=== PATIENT | male | born 1940 | race Caucasian/White ===

== ENCOUNTER → 2016-07-10 | Outpatient (REF) | payer MEDICARE, MEDICAID ==
[~2016-07-10] MED LIST: /PANT40TA; ACET500C PO; ACET500T37 PO; ACET65TA; ALBUTEROL INH; ASPI1TAB PO; ASPI81CH PO; ASPI81TA3; ATOR40TA PO; BABY81CH OR; BACT800T OR; CARA1TAB2 PO; CIPR500T19; COUM6TAB PO; COUMADIN PO; CRES40TA; EYE VITAMIN PO; FLAG500T; FLOM5CAP PO; FURO20TA2 PO; GABA300C3 PO; INSULADS SC; INSULANT SC; K-TA10TA PO; KRIL300C PO; LIPITO PO; LISI5TAB; LOPR50TA PO; LORA10TA2 PO; LORATADINE; MACR100C3 PO; METF1000 PO; METF500T PO; METFORMIN PO; METO25TAB PO; NITR0.4S SL; NITR4TASL SL; NYST100024 TOP; NYST10PW TOP; PANT40TA2 PO; PRED50TA OR; PRESCAP6 PO; RA K500C PO; TAMS0.4C2 PO; TEARSPF OU; THERGRAN PO; TRAM50TA2; VENL75CA PO; VENL75TA2 PO; VITA100037 PO; VITMTA PO; WARF-60 PO; WARF5VL PO; XARE20TA PO
[2016-07-10 10:50] LABS: INR 0.98
== END ==
PROVIDERS: ATTEND Nurse Practitioner Family
DX: Z51.81 Encounter for therapeutic drug level monitoring (principal); Z79.01 Long term (current) use of anticoagulants

== ENCOUNTER → 2016-07-17 | Outpatient (REF) | payer MEDICARE, MEDICAID ==
[2016-07-17 10:31] LABS: INR 1.02
== END ==
PROVIDERS: ATTEND Nurse Practitioner Family
DX: Z51.81 Encounter for therapeutic drug level monitoring (principal); Z79.01 Long term (current) use of anticoagulants; I48.91 Unspecified atrial fibrillation

== ENCOUNTER → 2016-08-08 | Outpatient (REF) | payer MEDICARE, MEDICAID ==
[2016-08-08 09:31] LABS: MEAN CORPUSCULAR HEMOGLOBIN 29.3 pg (27.0-33.0); MEAN CORPUSCULAR HGB CONC 32.6 g/dl (32.0-36.5); MEAN CORPUSCULAR VOLUME 90.1 fl (80.0-96.0); RED CELL DISTRIBUTION WIDTH 13.7 % (11.5-14.5); WHITE BLOOD COUNT 6.7 K/mm3 (4.0-10.0)
[2016-08-08 09:54] LABS: ALBUMIN 3.6 GM/DL (3.2-5.2); ALBUMIN/GLOBULIN RATIO 1.03 (1.00-1.93); ALKALINE PHOSPHATASE 95 U/L (45-117); ALT/SGPT 20 U/L (12-78); ANION GAP 8 MEQ/L (8-16); AST/SGOT 17 U/L (15-37); BILIRUBIN,TOTAL 0.3 MG/DL (0.2-1.0); BLOOD UREA NITROGEN 20 MG/DL (7-18); CALCIUM LEVEL 8.7 MG/DL (8.8-10.2); CARBON DIOXIDE LEVEL 29 MEQ/L (21-32); CHLORIDE LEVEL 104 MEQ/L (98-107); CHOLESTEROL LEVEL 185 MG/DL (<200); CREATININE FOR GFR 0.94 MG/DL (0.70-1.30); GLOMERULAR FILTRATION RATE > 60.0 (>42); GLUCOSE, FASTING 93 MG/DL (83-110); POTASSIUM SERUM 4.1 MEQ/L (3.5-5.1); SODIUM LEVEL 141 MEQ/L (136-145); TOTAL PROTEIN 7.1 GM/DL (6.4-8.2); TRIGLYCERIDES LEVEL 169 MG/DL (<150)
== END ==
PROVIDERS: ATTEND Internal Medicine Cardiovascular Disease
DX: I11.0 Hypertensive heart disease with heart failure (principal); R55 Syncope and collapse; I25.10 Atherosclerotic heart disease of native coronary artery without angina pectoris

== ENCOUNTER → 2016-09-04 | Outpatient (REF) | payer MEDICARE, MEDICAID | PROVIDERS: ATTEND Nurse Practitioner Adult Health | DX: I48.91 Unspecified atrial fibrillation (principal) ==

== ENCOUNTER → 2016-09-11 | Outpatient (REF) | payer MEDICARE, MEDICAID ==
[2016-09-11 11:16] LABS: INR 1.05
== END ==
PROVIDERS: ATTEND Nurse Practitioner Family
DX: Z51.81 Encounter for therapeutic drug level monitoring (principal); Z79.01 Long term (current) use of anticoagulants; I48.91 Unspecified atrial fibrillation

== ENCOUNTER → 2016-09-18 | Outpatient (REF) | payer MEDICARE, MEDICAID ==
[2016-09-18 11:25] LABS: INR 1.09
== END ==
PROVIDERS: ATTEND Nurse Practitioner Family
DX: Z51.81 Encounter for therapeutic drug level monitoring (principal); Z79.01 Long term (current) use of anticoagulants; I48.2 Chronic atrial fibrillation

== ENCOUNTER → 2016-09-25 | Outpatient (REF) | payer MEDICARE, MEDICAID ==
[2016-09-25 10:24] LABS: INR 1.12
== END ==
PROVIDERS: ATTEND Nurse Practitioner Family
DX: Z51.81 Encounter for therapeutic drug level monitoring (principal); Z79.01 Long term (current) use of anticoagulants; I48.2 Chronic atrial fibrillation

== ENCOUNTER → 2016-10-02 | Outpatient (REF) | payer MEDICARE, MEDICAID ==
[~2016-10-02] MED LIST changes: +GABA-282 PO; -GABA300C3 PO
[2016-10-02 10:02] LABS: INR 1.41
== END ==
PROVIDERS: ATTEND Nurse Practitioner Family
DX: Z51.81 Encounter for therapeutic drug level monitoring (principal); Z79.01 Long term (current) use of anticoagulants; I48.2 Chronic atrial fibrillation

== ENCOUNTER → 2016-10-09 | Outpatient (REF) | payer MEDICARE, MEDICAID ==
[2016-10-09 10:31] LABS: INR 1.66
== END ==
PROVIDERS: ATTEND Nurse Practitioner Family
DX: Z51.81 Encounter for therapeutic drug level monitoring (principal); Z79.01 Long term (current) use of anticoagulants; I48.2 Chronic atrial fibrillation

== ENCOUNTER → 2016-10-16 | Outpatient (REF) | payer MEDICARE, MEDICAID ==
[2016-10-16 11:33] LABS: INR 1.97
== END ==
PROVIDERS: ATTEND Nurse Practitioner Family
DX: Z51.81 Encounter for therapeutic drug level monitoring (principal); Z79.01 Long term (current) use of anticoagulants; I48.2 Chronic atrial fibrillation

== ENCOUNTER → 2016-10-30 | Outpatient (REF) | payer MEDICARE, MEDICAID ==
[2016-10-30 11:21] LABS: INR 1.86
== END ==
PROVIDERS: ATTEND Nurse Practitioner Family
DX: Z51.81 Encounter for therapeutic drug level monitoring (principal); Z79.01 Long term (current) use of anticoagulants; I48.2 Chronic atrial fibrillation

== ENCOUNTER 2016-11-05 17:27 | Emergency (ER) | payer MEDICARE, MEDICAID ==
[2016-11-05 17:53] LABS: BASO % 0.6 % (0.0-1.0); EOS # 0.3 K/mm3 (0.0-0.50); EOS % 3.2 % (0.0-3.0); LARGE UNSTAINED CELL # 0.2 K/mm3 (0.0-0.4); LARGE UNSTAINED CELL % 1.8 % (0.0-4.0); LYMPH # 1.8 K/mm3 (1.5-4.5); LYMPH % 19.4 % (24.0-44.0); MEAN CORPUSCULAR HEMOGLOBIN 30.5 pg (27.0-33.0); MEAN CORPUSCULAR HGB CONC 32.8 g/dl (32.0-36.5); MEAN CORPUSCULAR VOLUME 93.1 fl (80.0-96.0); MONO # 0.5 K/mm3 (0.0-0.8); MONO % 5.7 % (0.0-5.0); NEUTROPHILS % 69.3 % (36.0-66.0); PLATELET COUNT, AUTOMATED 143 k/mm3 (150-450); RED CELL DISTRIBUTION WIDTH 14.3 % (11.5-14.5); WHITE BLOOD COUNT 8.7 K/mm3 (4.0-10.0)
[2016-11-05 18:17] LABS: ANION GAP 8 MEQ/L (8-16); BLOOD UREA NITROGEN 24 MG/DL (7-18); CALCIUM LEVEL 8.3 MG/DL (8.8-10.2); CARBON DIOXIDE LEVEL 27 MEQ/L (21-32); CHLORIDE LEVEL 106 MEQ/L (98-107); GLOMERULAR FILTRATION RATE > 60.0 (>42); GLUCOSE, FASTING 135 MG/DL (83-110); POTASSIUM SERUM 3.8 MEQ/L (3.5-5.1); SODIUM LEVEL 141 MEQ/L (136-145)
[2016-11-05] MEDS ORDERED: COUM10TA PO (18:23)
[2016-11-05] MEDS ORDERED: COUM7.5T PO (18:23)
--- NOTE | 2016-11-05 19:17 | REP ---
AP PORTABLE CHEST: 11/05/2016 at 06:56 PM. Comparison: 06/24/2016. Clinical history: 75-year old male with chest pain. Findings: Lungs are adequately inflated. There is no pleural effusion, pleural thickening, apical scarring or pneumothorax and no infiltrate, atelectasis or mass. Heart not enlarged. Some underlying interstitial fibrotic changes, mild. The aorta is tortuous, mildly calcified at the arch without aneurysm and unchanged. No edema. Impression: 1. Some underlying interstitial fibrotic changes without acute cardiopulmonary disease. Signed by Pelon Clancy MD 11/05/2016 08:41 P
[2016-11-05 21:51] LABS: INR 1.79
[2016-11-05 21:55] LABS: ALBUMIN 3.1 GM/DL (3.2-5.2); ALBUMIN/GLOBULIN RATIO 0.84 (1.00-1.93); ALKALINE PHOSPHATASE 92 U/L (45-117); ALT/SGPT 17 U/L (12-78); AST/SGOT 14 U/L (15-37); BILIRUBIN,DIRECT < 0.1 MG/DL (0.0-0.2); BILIRUBIN,TOTAL 0.2 MG/DL (0.2-1.0); TOTAL PROTEIN 6.8 GM/DL (6.4-8.2)
[2016-11-05 23:30] VITALS: BP 139/69
--- NOTE | 2016-11-06 08:26 | ECGEPIP ---
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
--- NOTE | 2016-11-06 08:27 | ECGEPIP ---
Stationary ECG Study [facility] - ED Test Date: 2016-11-05 Pat Name: CHEIKH MORALES Department: Room: - Gender: M Pompom Maker: gena : 1940 Requested By: TRENTON DUCKWORTH Order Number: [id number] Reading MD: Maite Mcgee Measurements Intervals [place] Rate: 75 P: 25 [place]: 168 QRS: -40 QRSD: 105 T: 51 QT: 422 QTc: 472 Interpretive Statements SINUS RHYTHM WITH OCCASIONAL SUPRAVENTRICULAR PREMATURE COMPLEXES MARKED LEFT AXIS DEVIATION NONSPECIFIC T-WAVE ABNORMALITY PRWP SIMILAR 17:45 Electronically Signed On 11-06-2016 8:27:38 EDT by Maite Mcgee
== END 2016-11-05 23:55 | disposition home or self-care (01) ==
LOC: M ED 18:05
DX: I20.8 Other forms of angina pectoris (principal); I48.2 Chronic atrial fibrillation; E11.9 Type 2 diabetes mellitus without complications; I10 Essential (primary) hypertension; Z87.891 Personal history of nicotine dependence; R94.31 Abnormal electrocardiogram [ECG] [EKG]; Z79.82 Long term (current) use of aspirin; Z79.899 Other long term (current) drug therapy; Z79.84 Long term (current) use of oral hypoglycemic drugs; Z79.4 Long term (current) use of insulin; Z79.01 Long term (current) use of anticoagulants; Z88.8 Allergy status to other drugs, medicaments and biological substances; Z88.1 Allergy status to other antibiotic agents

== ENCOUNTER → 2016-11-06 | Outpatient (REF) | payer MEDICARE, MEDICAID ==
[~2016-11-06] MED LIST changes: +COUM10TA PO; +COUM7.5T PO
[2016-11-06 11:17] LABS: INR 1.97
== END ==
PROVIDERS: ATTEND Nurse Practitioner Family
DX: I48.2 Chronic atrial fibrillation (principal)

== ENCOUNTER → 2016-11-20 | Outpatient (REF) | payer MEDICARE, MEDICAID ==
[2016-11-20 11:12] LABS: INR 2.65
== END ==
PROVIDERS: ATTEND Nurse Practitioner Family
DX: I48.2 Chronic atrial fibrillation (principal)

== ENCOUNTER → 2016-11-27 | Outpatient (REF) | payer MEDICARE, MEDICAID ==
[2016-11-27 10:03] LABS: INR 2.66
== END ==
PROVIDERS: ATTEND Nurse Practitioner Family
DX: Z79.01 Long term (current) use of anticoagulants (principal); I48.2 Chronic atrial fibrillation

== ENCOUNTER → 2016-12-11 | Outpatient (REF) | payer MEDICARE, MEDICAID ==
[2016-12-11 11:25] LABS: MEAN CORPUSCULAR HEMOGLOBIN 31.2 pg (27.0-33.0); MEAN CORPUSCULAR HGB CONC 33.3 g/dl (32.0-36.5); MEAN CORPUSCULAR VOLUME 93.7 fl (80.0-96.0); RED CELL DISTRIBUTION WIDTH 13.7 % (11.5-14.5); WHITE BLOOD COUNT 6.5 K/mm3 (4.0-10.0)
[2016-12-11 12:08] LABS: ALBUMIN 3.1 GM/DL (3.2-5.2); ALKALINE PHOSPHATASE 81 U/L (45-117); ALT/SGPT 18 U/L (12-78); ANION GAP 7 MEQ/L (8-16); AST/SGOT 13 U/L (15-37); BILIRUBIN,TOTAL 0.3 MG/DL (0.2-1.0); BLOOD UREA NITROGEN 22 MG/DL (7-18); CALCIUM LEVEL 8.6 MG/DL (8.8-10.2); CARBON DIOXIDE LEVEL 30 MEQ/L (21-32); CHLORIDE LEVEL 106 MEQ/L (98-107); GLOMERULAR FILTRATION RATE > 60.0 (>42); GLUCOSE, FASTING 120 MG/DL (83-110); POTASSIUM SERUM 3.6 MEQ/L (3.5-5.1); SODIUM LEVEL 143 MEQ/L (136-145); TOTAL PROTEIN 6.2 GM/DL (6.4-8.2)
== END ==
PROVIDERS: ATTEND Internal Medicine Cardiovascular Disease
DX: G45.9 Transient cerebral ischemic attack, unspecified (principal); I50.32 Chronic diastolic (congestive) heart failure; I25.10 Atherosclerotic heart disease of native coronary artery without angina pectoris; I11.0 Hypertensive heart disease with heart failure

== ENCOUNTER 2016-12-15 21:44 | Emergency (ER) | payer MEDICARE, MEDICAID ==
[~2016-12-15] VITALS: Ht 177.8 cm; Wt 133.8 kg
[2016-12-15] MEDS ORDERED: ASPIRIN 325 MG TAB PO ONE (22:00)
[2016-12-15 22:53] LABS: BASO % 0.6 % (0.0-1.0); EOS # 0.2 K/mm3 (0.0-0.50); EOS % 3.2 % (0.0-3.0); LARGE UNSTAINED CELL # 0.2 K/mm3 (0.0-0.4); LARGE UNSTAINED CELL % 2.2 % (0.0-4.0); LYMPH # 1.8 K/mm3 (1.5-4.5); LYMPH % 21.3 % (24.0-44.0); MEAN CORPUSCULAR HEMOGLOBIN 31.1 pg (27.0-33.0); MEAN CORPUSCULAR HGB CONC 33.8 g/dl (32.0-36.5); MEAN CORPUSCULAR VOLUME 92.1 fl (80.0-96.0); MONO # 0.5 K/mm3 (0.0-0.8); MONO % 6.6 % (0.0-5.0); NEUTROPHILS # 5.1 K/mm3 (1.8-7.7); PLATELET COUNT, AUTOMATED 160 k/mm3 (150-450); RED CELL DISTRIBUTION WIDTH 13.9 % (11.5-14.5); WHITE BLOOD COUNT 7.6 K/mm3 (4.0-10.0)
[2016-12-15 22:58] LABS: INR 1.78
[2016-12-15 23:10] LABS: ANION GAP 9 MEQ/L (8-16); BLOOD UREA NITROGEN 23 MG/DL (7-18); CALCIUM LEVEL 8.5 MG/DL (8.8-10.2); CARBON DIOXIDE LEVEL 27 MEQ/L (21-32); CHLORIDE LEVEL 105 MEQ/L (98-107); CREATININE FOR GFR 1.14 MG/DL (0.70-1.30); GLOMERULAR FILTRATION RATE > 60.0 (>42); GLUCOSE, FASTING 136 MG/DL (83-110); POTASSIUM SERUM 3.6 MEQ/L (3.5-5.1); SODIUM LEVEL 141 MEQ/L (136-145)
[2016-12-16 03:37] VITALS: BP 146/67
== END 2016-12-16 04:05 | disposition home or self-care (01) ==
LOC: EDBD 21:44 → M ED 23:18
DX: R07.89 Other chest pain (principal); I10 Essential (primary) hypertension; I48.91 Unspecified atrial fibrillation; I50.9 Heart failure, unspecified; E11.9 Type 2 diabetes mellitus without complications; E78.5 Hyperlipidemia, unspecified; K21.9 Gastro-esophageal reflux disease without esophagitis; G47.30 Sleep apnea, unspecified; Z86.73 Personal history of transient ischemic attack (TIA), and cerebral infarction without residual deficits; Z98.61 Coronary angioplasty status; Z79.01 Long term (current) use of anticoagulants; Z79.4 Long term (current) use of insulin; Z79.899 Other long term (current) drug therapy; Z88.1 Allergy status to other antibiotic agents; Z88.8 Allergy status to other drugs, medicaments and biological substances

== ENCOUNTER → 2016-12-18 | Outpatient (REF) | payer MEDICARE, MEDICAID ==
[2016-12-18 10:45] LABS: INR 2.12
== END ==
PROVIDERS: ATTEND Nurse Practitioner Family
DX: Z51.81 Encounter for therapeutic drug level monitoring (principal); Z79.01 Long term (current) use of anticoagulants; I48.91 Unspecified atrial fibrillation

== ENCOUNTER → 2016-12-25 | Outpatient (REF) | payer MEDICARE, MEDICAID ==
[2016-12-25 10:59] LABS: INR 2.55
== END ==
PROVIDERS: ATTEND Nurse Practitioner Family
DX: Z51.81 Encounter for therapeutic drug level monitoring (principal); Z79.01 Long term (current) use of anticoagulants; I48.2 Chronic atrial fibrillation

== ENCOUNTER → 2017-01-15 | Outpatient (REF) | payer MEDICARE, MEDICAID ==
[~2017-01-15] MED LIST changes: +ACET-683 PO; -ACET500T37 PO; +ASPI325T24 PO; -ATOR40TA PO; +ATOR40TA75 PO; +BIOTSPR MT; -CARA1TAB2 PO; +CARA1TAB6 PO; +FURO40TA2 PO; -MACR100C3 PO; +MACR100C43 PO; -METF1000 PO; +METF10004 PO; -METF500T PO; +METF500T13 PO; +METO1TAB32 PO; +METO25TA4 PO; -METO25TAB PO; -NYST100024 TOP; +NYST1POW9 TOP; +TEAR1SOL3 OU; -TEARSPF OU; -VENL75CA PO; +VENL75CA2 PO
[2017-01-15 11:55] LABS: INR 3.1
== END ==
PROVIDERS: ATTEND Nurse Practitioner Family
DX: I48.2 Chronic atrial fibrillation (principal)

== ENCOUNTER → 2017-01-22 | Outpatient (REF) | payer MEDICARE, MEDICAID ==
[2017-01-22 09:36] LABS: INR 2.33
== END ==
PROVIDERS: ATTEND Nurse Practitioner Family
DX: I48.91 Unspecified atrial fibrillation (principal)

== ENCOUNTER → 2017-02-05 | Outpatient (REF) | payer MEDICARE, MEDICAID ==
[2017-02-05 12:28] LABS: INR 2.09
== END ==
PROVIDERS: ATTEND Nurse Practitioner Family
DX: Z51.81 Encounter for therapeutic drug level monitoring (principal); Z79.01 Long term (current) use of anticoagulants; I48.91 Unspecified atrial fibrillation

== ENCOUNTER → 2017-02-19 | Outpatient (REF) | payer MEDICARE, MEDICAID | PROVIDERS: ATTEND Nurse Practitioner Family | DX: Z79.1 Long term (current) use of non-steroidal anti-inflammatories (NSAID) (principal); Z79.01 Long term (current) use of anticoagulants; I48.2 Chronic atrial fibrillation ==

== ENCOUNTER → 2017-03-05 | Outpatient (REF) | payer MEDICARE, MEDICAID ==
[2017-03-05 10:48] LABS: INR 2.28
== END ==
PROVIDERS: ATTEND Nurse Practitioner Family
DX: I48.2 Chronic atrial fibrillation (principal)

== ENCOUNTER 2017-03-13 21:31 | Observation (INO) | payer MEDICARE, MEDICAID ==
[~2017-03-13] VITALS: Ht 177.8 cm; Wt 131.6 kg
[~2017-03-13 21:31] MED LIST changes: -ASPI325T24 PO; -BIOTSPR MT; -FURO40TA2 PO; -METO1TAB32 PO
--- NOTE | 2017-03-13 23:50 | REPUSA ---
CT of the head Clinical history: stroke. Comparison: 06/20/2016. Technique: Multiple axial CT images were obtained through the head without administration of contrast . Findings: The ventricles and sulci are symmetric bilaterally. There is no evidence of acute hemorrhag e or infarct. There is no midline shift, mass effect, or extra-axial fluid collection. The osseous st ructures are unremarkable. The visualized paranasal sinuses and mastoid air cells are clear. Impression: Negative study.
[2017-03-13 23:56] LABS: BASO % 0.6 % (0.0-1.0); EOS # 0.3 K/mm3 (0.0-0.50); EOS % 3.8 % (0.0-3.0); LARGE UNSTAINED CELL # 0.2 K/mm3 (0.0-0.4); LARGE UNSTAINED CELL % 2.5 % (0.0-4.0); LYMPH # 2.3 K/mm3 (1.5-4.5); MEAN CORPUSCULAR HEMOGLOBIN 30.5 pg (27.0-33.0); MEAN CORPUSCULAR HGB CONC 32.9 g/dl (32.0-36.5); MEAN CORPUSCULAR VOLUME 92.7 fl (80.0-96.0); MONO # 0.5 K/mm3 (0.0-0.8); MONO % 6.2 % (0.0-5.0); NEUTROPHILS % 60.9 % (36.0-66.0); PLATELET COUNT, AUTOMATED 137 k/mm3 (150-450); RED CELL DISTRIBUTION WIDTH 13.9 % (11.5-14.5); WHITE BLOOD COUNT 8.2 K/mm3 (4.0-10.0)
[2017-03-14] VITALS (7 sets, daily range): BP systolic 117–148; BP diastolic 65–92
[2017-03-14 00:02] LABS: INR 2.04
[2017-03-14] MEDS ORDERED: FURO40TA2 PO (00:02)
[2017-03-14] MEDS ORDERED: METO1TAB32 PO (00:02)
[2017-03-14] MEDS ORDERED: METF10004 PO (00:02)
[2017-03-14] MEDS ORDERED: ASPI325T24 PO (00:02)
[2017-03-14] MEDS ORDERED: BIOTSPR MT (00:02)
[2017-03-14 00:29] LABS: ANION GAP 8 MEQ/L (8-16); BLOOD UREA NITROGEN 22 MG/DL (7-18); CARBON DIOXIDE LEVEL 27 MEQ/L (21-32); CHLORIDE LEVEL 105 MEQ/L (98-107); CREATININE FOR GFR 1.03 MG/DL (0.70-1.30); GLOMERULAR FILTRATION RATE > 60.0 (>42); GLUCOSE, FASTING 102 MG/DL (83-110); POTASSIUM SERUM 4.1 MEQ/L (3.5-5.1); SODIUM LEVEL 140 MEQ/L (136-145)
[2017-03-14] MEDS ORDERED: ONDANSETRON 4MG/2ML VIAL (J2405) IV PRN (02:45)
[2017-03-14] MEDS ORDERED: SALIVA SUBSTITUTE(MOUTHKOTE) BTL MT PRN (02:45)
[2017-03-14] MEDS ORDERED: NYSTATIN 100,000 UNITS/GM TOPICAL PWD 15 GM TOP PRN (02:45)
[2017-03-14] MEDS ORDERED: ACETAMINOPHEN TAB 650MG DOSE (2X325MG) PO PRN (02:45)
--- NOTE | 2017-03-14 02:53 | HPEPDOC ---
Medical History and Physical Date of Admission 03/14/17 History and Physical PRIMARY CARE PROVIDER: Lew ATTENDING: Dr. 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 Patient states that he has occasional left sided occipital numbness that extends from his cervical spine up to the left parietal region that happens 1-2 times a month, and resolves on its own. Today it lasted for 2 minutes. The patient states he has no pain moving his neck. No focal weakness. No dysarthria /aphasia. No pronator drift. As the patient was sitting, he also noted that he had pain in between the fingers of his right hand. He occasionally gets numbness and pain in the palm of his hands after his carpal tunnel surgery. Patient denies any weakness of his right upper extremity. He is currently asymptomatic. PAST MEDICAL HISTORY: As per HPI PAST SURGICAL HISTORY: Adenoidectomy, bilateral carpal tunnel, appendectomy, tonsillectomy SOCIAL HISTORY: History of 1 pack per day 30 year tobacco abuse quit 10 years ago. Occasionally drinks beer. No illicit drugs. Lives at [facility]. FAMILY HISTORY: Noncontributory ALLERGIES: Please see below. REVIEW OF SYSTEMS: HEENT: Denies sore throat/headache CARDIOVASCULAR: Denies chest pain/palpitations RESPIRATORY: Denies shortness of breath/cough GASTROINTESTINAL: denies nausea/vomiting GENITOURINARY: Denies dysuria/urinary urgency. MUSCULOSKELETAL: Denies myalgias/arthralgias NEUROLOGICAL: Denies any focal weakness. HOME MEDICATIONS: Please see below. PHYSICAL EXAMINATION: Vitals: (see below) General: No acute distress, laying comfortably in bed. HEENT: Moist mucous membranes. Neck: No JVD or lymphadenopathy. Full range of motion. Crepitus with movement. No pain. Cardiac: RRR, No murmurs Pulm: Clear to auscultation b/l. No wheezing, rhonchi Abd: NT/ND + BS. Obese Ext: 1-2+ pitting edema bilateral lower edema. No cyanosis. Surgical scars from bilateral carpal tunnel. Distal pulses intact. Capillary refill less than 2 seconds. No pain. Neuro: Strength 5/5 BUE and BLE. CN 2-12 intact. F to N intact Negative Babinki. NIH 0 LABORATORY DATA: See below. IMAGING: CT head on 03/13/17 Impression: Negative study. CT cervical spine 04/2016 There is no acute fracture. Disc bulges are present at the C2-3 through C4-5 levels. Disc bulges with associated osteophyte formation are present at the C5-6 and C6-7 levels. There is minimal narrowing of the spinal canal. Uncinate process and/or facet hypertrophy are present at the C2-3 through C7-T1 levels. These findings produce minimal to moderate narrowing of the neural foramina. The C3-4 through C7-T1 intervertebral discs are decreased in height consistent with disc degeneration. There are 3 mm of anterior subluxation of C3 on 4 and C3 on 5. IMPRESSION: 1. There is no acute fracture. 2. Degenerative change as described above. MICROBIOLOGY: Please see below. ASSESSMENT/PLAN: 1. Cervical spine degenerative disc disease - ct of the cervical spine 04/2016 ( see above). Will repeat CT today. The patient has no focal deficits. His symptoms are not consistent with a TIA/CVA. Will obtain physical therapy consultation as well. He has no pain at this time. 2. Pain and numbness in right hand- this appears to be isolated unlikely secondary to his carpal tunnel. Improved. 3. History of CVA- on aspirin and statin. Will need outpatient neurology follow- up for a possible de-escalation of the dosage of the aspirin as for dose aspirin with Coumadin increases risk of bleeding especially in a patient with a prior history of duodenal ulcers. 4. History of atrial fibrillation on Coumadin. INRs are.. Continue Coumadin. 5. History of CHF- compensated. 6. History of depression- continue home meds 7. History of CAD- on aspirin and statin DVT prophylaxis- on Coumadin Patient profile by Dr. Shasha Kilgore starting 03/14/17 at 7 AM. Vital Signs Vital Signs Date Time Temp Pulse Resp B/P (MAP) Pulse Ox O2 Delivery O2 Flow Rate FiO2 03/14/17 01:01 68 93 03/14/17 00:45 185/75 (111) 03/13/17 22:07 18 03/13/17 22:00 96.1 Nasal Cannula 2.0 Laboratory Data Labs 24H Laboratory Tests 2 03/13/17 23:35: White Blood Count 8.2, Red Blood Count 4.36, Hemoglobin 13.3L, Hematocrit 40.5L , Mean Corpuscular Volume 92.7, Mean Corpuscular Hemoglobin 30.5, Mean Corpuscular Hemoglobin Concent 32.9, Red Cell Distribution Width 13.9, Platelet Count 137L, Neutrophils (%) (Auto) 60.9, Lymphocytes (%) (Auto) 26.0, Monocytes (%) (Auto) 6.2H, Eosinophils (%) (Auto) 3.8H, Basophils (%) (Auto) 0.6, Neutrophils # (Auto) 5.0, Lymphocytes # (Auto) 2.3, Monocytes # (Auto) 0.5, Eosinophils # (Auto) 0.3, Basophils # (Auto) 0.0, Large Unclassified Cells % 2.5 , Large Unclassified Cells # 0.2, Prothrombin Time 23.7H, Prothromb Time International Ratio 2.04, Activated Partial Thromboplast Time 51.9H, Anion Gap 8 , Glomerular Filtration Rate > 60.0, Blood Urea Nitrogen 22H, Creatinine 1.03, Sodium Level 140, Potassium Level 4.1, Chloride Level 105, Carbon Dioxide Level 27, Calcium Level 9.0, Total Creatine Kinase 82, Creatine Kinase MB 1.1, Creatine Kinase MB Relative Index 1.34, Troponin I < 0.02 CBC/BMP Laboratory Tests 03/13/17 23:35 Red Blood Count 4.36, Mean Corpuscular Volume 92.7, Mean Corpuscular Hemoglobin 30.5, Mean Corpuscular Hemoglobin Concent 32.9, Red Cell Distribution Width 13.9 , Neutrophils (%) (Auto) 60.9, Lymphocytes (%) (Auto) 26.0, Monocytes (%) (Auto ) 6.2 H, Eosinophils (%) (Auto) 3.8 H, Basophils (%) (Auto) 0.6, Neutrophils # ( Auto) 5.0, Lymphocytes # (Auto) 2.3, Monocytes # (Auto) 0.5, Eosinophils # (Auto ) 0.3, Basophils # (Auto) 0.0, Calcium Level 9.0, Total Creatine Kinase 82 Home Medications Scheduled (Preservision Areds 2) 1 Cap Cap, 1 CAP PO BID Acetaminophen (Acetaminophen Extra Stren) 500 Mg Tab, 500 MG PO QID Aspirin (Aspirin EC) 325 Mg Tabec, 325 MG PO DAILY Atorvastatin Calcium (Atorvastatin Calcium) 40 Mg Tab, 40 MG PO QHS Dextran/Hydrox.prop.meth.cell (Tears Naturale PF 0.1-0.3 %) 1 Drop/Bottle Soln, 1 DROP OU QID Furosemide (Furosemide) 40 Mg Tab, 40 MG PO DAILY Gabapentin (Gabapentin) 300 Mg Cap, 300 MG PO BID Insulin Glargine (Lantus) 1 Units/0.01 Ml Susp, 20 UNITS SC QHS Metformin Hydrochloride (Metformin HCl) 1,000 Mg Tab, 1,000 MG PO BID GIVEN AT 0900 AND 1700 Metformin Hydrochloride (Metformin HCl) 1,000 Mg Tab, 500 MG PO ASDIRECTED GIVEN EVERY DAY AT 1130 (GIVEN AT LUNCH) Metoprolol Succinate (Metoprolol Succinate ER) 25 Mg Tab, 25 MG PO DAILY Pantoprazole Sodium (Pantoprazole Sodium) 40 Mg Tab, 40 MG PO DAILY Sucralfate (Carafate) 1 Gm Tab, 1 GM PO BID GIVEN AT 0900 AND 1600 Tamsulosin Hydrochloride (Flomax) 0.4 Mg Cap, 0.4 MG PO DAILY Venlafaxine HCl (Venlafaxine HCl ER) 75 Mg Cap, 75 MG PO QHS Venlafaxine HCl (Venlafaxine HCl ER) 75 Mg Cap, 150 MG PO DAILY Warfarin Sod (Coumadin) 10 Mg Tab, 10 MG PO ASDIRECTED TAKES EVERY SATURDAY AT 1700 Warfarin Sod (Coumadin) 7.5 Mg Tab, 7.5 MG PO ASDIRECTED TAKES AT 1700 EVERY DAY BUT SATURDAY Scheduled PRN (Biotene Moisturizing Mout) 1 Spr Spr, 2 SPR MT TID PRN for DRY MOUTH Nitroglycerin (Nitrostat) 0.4 Mg Subl, 0.4 MG SL NITRO PRN for CHEST PAIN Nystatin (Nystatin Powder) 100,000 Unit/Gm Pow, 1 DOSE TOP TID PRN for RASH APPLIES TO GROIN AREA NEEDED Allergies Coded Allergies: Glucosamine (Verified Allergy, Unknown, 11/05/16) Meloxicam (Verified Allergy, Unknown, 11/05/16) Tetracycline (Verified Allergy, Unknown, 11/05/16) Heparin (Verified Adverse Reaction, Unknown, 11/05/16) RODY LORA MD Mar 14, 2017 02:53
--- NOTE | 2017-03-14 03:30 | REPUSA ---
CLINICAL HISTORY: Neck pain. TECHNIQUE: Multiple axial images were obtained through the cervical spine. Images were also reconstru cted in coronal and sagittal planes. The study was performed without IV contrast. COMMENTS: Grade 1 anterolisthesis of C3 on C4. Grade 1 anterolisthesis of C4 on C5. There is no fracture visualized. The paraspinal soft tissues are unremarkable. There are no lytic or blastic lesions. There are diffuse spondylotic changes. Findings are demonstrated by disc space narrowing, osteophyte formation and degenerative endplate changes. Facet joint arthropathy. No fracture or dislocation is s een. No aggressive bone lesion is noted. Straightening of cervical lordosis is seen, suggesting muscular spasm. There is evidence of multileve l disk disease, demonstrated by osteophytosis and endplate sclerosis. IMPRESSION: 1. No fracture. 2. Straightening of cervical lordosis is seen, suggesting muscular spasm. 3. Multilevel spondylosis. Thank you for your kind referral of this patient.
[2017-03-14 07:11] LABS: BASO % 0.5 % (0.0-1.0); EOS # 0.2 K/mm3 (0.0-0.50); EOS % 3.4 % (0.0-3.0); LARGE UNSTAINED CELL # 0.1 K/mm3 (0.0-0.4); LARGE UNSTAINED CELL % 1.8 % (0.0-4.0); LYMPH % 26.4 % (24.0-44.0); MEAN CORPUSCULAR HEMOGLOBIN 30.6 pg (27.0-33.0); MEAN CORPUSCULAR VOLUME 92.6 fl (80.0-96.0); MONO # 0.4 K/mm3 (0.0-0.8); MONO % 6.2 % (0.0-5.0); NEUTROPHILS # 4.4 K/mm3 (1.8-7.7); NEUTROPHILS % 61.7 % (36.0-66.0); PLATELET COUNT, AUTOMATED 154 k/mm3 (150-450); RED CELL DISTRIBUTION WIDTH 13.9 % (11.5-14.5); WHITE BLOOD COUNT 7.1 K/mm3 (4.0-10.0)
[2017-03-14 07:14] LABS: INR 2.07
[2017-03-14 07:41] LABS: ANION GAP 11 MEQ/L (8-16); BLOOD UREA NITROGEN 20 MG/DL (7-18); CALCIUM LEVEL 8.8 MG/DL (8.8-10.2); CARBON DIOXIDE LEVEL 26 MEQ/L (21-32); CHLORIDE LEVEL 106 MEQ/L (98-107); CHOLESTEROL LEVEL 200 MG/DL (<200); CREATININE FOR GFR 0.93 MG/DL (0.70-1.30); GLOMERULAR FILTRATION RATE > 60.0 (>42); GLUCOSE, FASTING 102 MG/DL (83-110); POTASSIUM SERUM 3.8 MEQ/L (3.5-5.1); SODIUM LEVEL 143 MEQ/L (136-145); TRIGLYCERIDES LEVEL 190 MG/DL (<150)
--- NOTE | 2017-03-14 08:03 | REP ---
Clinical: Cerebrovascular accident . Comparison: 12/15/2016 . Technique: PA only. Findings: The mediastinum and cardiac silhouette are normal. The lung vigil demonstrate chronic stable changes without acute consolidation, effusion, or pneumothorax. The skeletal structures are intact and normal. Impression: 1. No acute cardiopulmonary process. Signed by Levi Johnson MD 03/14/2017 07:55 A
[2017-03-14] MEDS: ASPIRIN ENTERIC 325 MG TAB PO SCH (08:47)
[2017-03-14] MEDS: GABAPENTIN 300 MG CAP PO SCH ×2 (08:47→22:00)
[2017-03-14] MEDS: PANTOPRAZOLE 40MG TAB (PROTONIX) PO SCH (08:47)
[2017-03-14] MEDS: SUCRALFATE 1 GM TAB PO SCH ×2 (08:48→17:21)
[2017-03-14] MEDS: FUROSEMIDE 40 MG TAB PO SCH (08:48)
[2017-03-14] MEDS: TAMSULOSIN 0.4 MG CAP PO SCH (08:48)
[2017-03-14] MEDS: metFORMIN (GLUCOPHAGE) 1000 MG TABLET PO SCH ×2 (08:48→17:22)
[2017-03-14] MEDS: METOPROLOL SUCC *XL* 25MG TAB (TopROL *XL*) PO SCH (08:49)
[2017-03-14] MEDS: POLYVINYL ALCOHOL OPHTH SOLN 15 ML(LIQUITEARS) OU SCH ×4 (08:49→22:00)
[2017-03-14] MEDS: VENLAFAXINE **XR** 75MG CAPSULE PO SCH (08:49)
--- NOTE | 2017-03-14 09:04 | REP ---
MRI CERVICAL SPINE WITHOUT CONTRAST: HISTORY: Neck pain. COMPARISON: CT 03/14/2017. Facet hypertrophy is present on the left at the C2-3 level. This produces minimal narrowing of the left C2 neural foramen. The right C2 neural foramen is patent. A disc bulge is present at the C3-4 level. There are 2 mm of anterior subluxation of C3 on 4. There is moderate effacement of the thecal sac without spinal cord compression. Bilateral uncinate process and facet hypertrophy are present. These findings produce severe and moderate narrowing of the right and left C3 neural foramina respectively. A disc bulge is present at the C4-5 level. There are 2 mm of anterior subluxation of C4 on 5. There is moderate effacement of the thecal sac without spinal cord compression. Bilateral uncinate process and left facet hypertrophy are present. These findings produce mild and severe narrowing of the right and left C4 neural foramina respectively. A disc bulge with associated osteophyte formation is present at the C5-6 level. There is moderate effacement of the thecal sac without spinal cord compression. Bilateral uncinate process hypertrophy is present. This produces moderate narrowing of the C5 neural foramina. A disc bulge with associated osteophyte formation is present at the C6-7 level. There is mild effacement of the thecal sac without spinal cord compression. Bilateral uncinate process hypertrophy is present. This produces moderate narrowing of the C6 neural foramina. A disc bulge is present at the C7-T1 level. There are 2 mm of anterior subluxation of C7 on T1. There is minimal effacement of the thecal sac without spinal cord compression. Bilateral uncinate process and facet hypertrophy are present. These findings produce moderate narrowing of the C7 neural foramina. There is no other disc or herniation. The remaining neural foramina are patent. The spinal cord is normal in signal intensity. The C3-4 through C7-T1 intervertebral discs are decreased in height consistent with disc degeneration. Normal signal intensity is present in the cervical vertebral bodies. IMPRESSION: There is cervical spondylosis at the C2-3 through C7-T1 levels without spinal cord compression. Signed by Kali Pettit MD 03/14/2017 09:33 A
[2017-03-14] MEDS ORDERED: WARFARIN SOD 7.5 MG TAB PO SCH (17:00)
--- NOTE | 2017-03-14 18:26 | ECGEPIP ---
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
[2017-03-14] MEDS ORDERED: VENLAFAXINE **XR** 75MG CAPSULE PO SCH (21:00)
[2017-03-14] MEDS ORDERED: LEVEMIR (INSULIN DETEMIR) 1 UNITS/0.01ML SC SCH (21:00)
[2017-03-14] MEDS ORDERED: ATORVASTATIN 20 MG TAB PO SCH (21:00)
[2017-03-14] MEDS ORDERED: GLUCAGON FOR INJ 1 MG VIAL (J1610) SC PRN (22:00)
[2017-03-14] MEDS ORDERED: GLUCOSE 4 GM CHEW TABLET PO PRN (22:00)
[2017-03-14] MEDS ORDERED: DEXTROSE 50% 50 ML SYRINGE IV PRN (22:00)
[2017-03-15 05:00] VITALS: BP 161/75
[2017-03-15 06:54] LABS: BASO % 0.4 % (0.0-1.0); EOS # 0.3 K/mm3 (0.0-0.50); EOS % 3.3 % (0.0-3.0); LARGE UNSTAINED CELL # 0.2 K/mm3 (0.0-0.4); LARGE UNSTAINED CELL % 2.6 % (0.0-4.0); LYMPH % 22.1 % (24.0-44.0); MEAN CORPUSCULAR HEMOGLOBIN 30.2 pg (27.0-33.0); MEAN CORPUSCULAR HGB CONC 32.7 g/dl (32.0-36.5); MEAN CORPUSCULAR VOLUME 92.4 fl (80.0-96.0); MONO # 0.6 K/mm3 (0.0-0.8); MONO % 7.2 % (0.0-5.0); NEUTROPHILS # 5.2 K/mm3 (1.8-7.7); NEUTROPHILS % 64.4 % (36.0-66.0); PLATELET COUNT, AUTOMATED 136 k/mm3 (150-450); RED CELL DISTRIBUTION WIDTH 13.8 % (11.5-14.5)
[2017-03-15 07:12] LABS: ANION GAP 9 MEQ/L (8-16); BLOOD UREA NITROGEN 22 MG/DL (7-18); CALCIUM LEVEL 8.7 MG/DL (8.8-10.2); CARBON DIOXIDE LEVEL 27 MEQ/L (21-32); CHLORIDE LEVEL 105 MEQ/L (98-107); CREATININE FOR GFR 0.89 MG/DL (0.70-1.30); GLOMERULAR FILTRATION RATE > 60.0 (>42); GLUCOSE, FASTING 95 MG/DL (83-110); MAGNESIUM LEVEL 1.7 MG/DL (1.8-2.4); POTASSIUM SERUM 3.9 MEQ/L (3.5-5.1); SODIUM LEVEL 141 MEQ/L (136-145)
[2017-03-15] MEDS: HumaLOG INSULIN (NovoLOG) PER UNIT SC SCH ×2 (07:30→11:58)
[2017-03-15 08:00] VITALS: BP 158/76
[2017-03-15] MEDS: FUROSEMIDE 40 MG TAB PO SCH (08:54)
[2017-03-15] MEDS: SUCRALFATE 1 GM TAB PO SCH (08:54)
[2017-03-15 08:55] VITALS: BP 158/76
[2017-03-15] MEDS: GABAPENTIN 300 MG CAP PO SCH (08:55)
[2017-03-15] MEDS: ASPIRIN ENTERIC 325 MG TAB PO SCH (08:55)
[2017-03-15] MEDS: metFORMIN (GLUCOPHAGE) 1000 MG TABLET PO SCH (08:55)
[2017-03-15] MEDS: METOPROLOL SUCC *XL* 25MG TAB (TopROL *XL*) PO SCH (08:55)
[2017-03-15] MEDS: PANTOPRAZOLE 40MG TAB (PROTONIX) PO SCH (08:55)
[2017-03-15] MEDS: POLYVINYL ALCOHOL OPHTH SOLN 15 ML(LIQUITEARS) OU SCH ×2 (08:56→12:01)
[2017-03-15] MEDS: TAMSULOSIN 0.4 MG CAP PO SCH (08:56)
[2017-03-15] MEDS ORDERED: INFLUENZA VIRUS VACCINE HIGH DOSE 0.5 ML SYRINGE (90662) IM ONE (09:00)
[2017-03-15] MEDS ORDERED: PREVNAR 13 VACCINE SYRINGE (CPT CODE:90670) IM ONE (09:00)
[2017-03-15] MEDS: VENLAFAXINE **XR** 75MG CAPSULE PO SCH (11:47)
--- NOTE | 2017-03-15 15:32 | DSES ---
DATE OF ADMISSION: 03/13/2017 DATE OF DISCHARGE: 03/15/2017 PRIMARY CARE PROVIDER: Lew PRIMARY DISCHARGE DIAGNOSES: 1. Left neck numbness. 2. Cervical spondylosis at C2-C3 through C7-T1 without spinal cord compression. 3. Cervical muscle spasm. 4. Multilevel cervical spondylosis. 5. History of CVA in 2007. 6. History of duodenal ulcers. 7. Depression. 8. Coronary artery disease. 9. Atrial fibrillation on chronic Coumadin. 10. Hypertension. DISCHARGE MEDICATIONS: - acetaminophen 500 mg four times a day - aspirin 325 mg daily - atorvastatin 40 mg at night - Biotin two sprays three times a day as needed - Travatan one drop OU four times a day - Lasix 40 mg daily - gabapentin 300 mg twice a day - insulin 20 units subcutaneous at night - metformin 1 gram twice a day - metoprolol 25 mg daily - nitroglycerin as needed 0.4 mg every 5 minutes for chest pain - nystatin topically three times a day as needed - Protonix 40 mg daily - PreserVision one capsule twice a day - Carafate 1 gram twice a day - Slow-mag 0.4 mg daily - venlafaxine 75 mg at night and 150 mg daily - Coumadin 10 mg and 7.5 mg as previously directed HOSPITAL COURSE: This is a 76-year-old male who presented to the emergency room from [facility] with complaints of left neck numbness. No dysarthria or aphagia. No pronator drift. Happens once or twice a month, lasting for 2 minutes today and has no pain in the neck. The patient also complained of pain between the fingers on the right hand with numbness and pain in the palm of his hands after his carpal tunnel surgery. The patient was admitted for observation. CT of the cervical spine shows no acute fracture, degenerative disc disease in the cervical spine with a 3 mm anterior subluxation on C3, C4 and C5. The patient was admitted for pain control and physical therapy (PT). MRI of the cervical spine shows no acute cord compression. Symptoms resolved. The patient was diagnosed with cervical muscle spasms. He had no issues on telemetry. He remained in atrial fibrillation with rate control. His INR was therapeutic at 2.0. No other issues occurred during the admission and he was back to baseline and kept on his aspirin, statin, and Coumadin. The patient passed a home safety evaluation. Discharge back to [facility] assisted living with no changes on his medications. LABORATORIES ON DISCHARGE: White count 8, hemoglobin 13, hematocrit 39, platelet count 136. Sodium 141, potassium 3.9, chloride 105, bicarbonate 27, BUN 22, creatinine 0.89, glucose of 95, magnesium of 1.7, calcium of 8.7. IMAGING STUDIES: MRI of the cervical spine shows cervical spondylosis at C2-C3 through C7-T1 without spinal cord compression. CT of the cervical spine on 03/14/2017 showed no fracture, straightening of the cervical lordosis suggesting muscle spasm, multilevel spondylosis. Chest x-ray on 03/13/2017 showed no acute cardiopulmonary process. CT of the head on 03/13/2017 shows negative study. MTDD
[2017-03-15] MEDS ORDERED: HumaLOG INSULIN (NovoLOG) PER UNIT SC SCH (21:00)
[2017-03-16] MEDS ORDERED: WARFARIN SOD 5 MG TAB PO SCH (17:00)
== END 2017-03-15 12:40 ==
LOC: M ED 21:31 → EDBD 21:31 → M ED INP 21:32 → M PCU 03-14 17:35
PROVIDERS: ADMIT Internal Medicine; ATTEND General Practice
DX: M47.812 Spondylosis without myelopathy or radiculopathy, cervical region (principal); M62.838 Other muscle spasm; Z86.73 Personal history of transient ischemic attack (TIA), and cerebral infarction without residual deficits; F32.9 Major depressive disorder, single episode, unspecified; I25.10 Atherosclerotic heart disease of native coronary artery without angina pectoris; I48.2 Chronic atrial fibrillation; I10 Essential (primary) hypertension; Z79.01 Long term (current) use of anticoagulants; Z79.82 Long term (current) use of aspirin; Z79.899 Other long term (current) drug therapy; Z88.8 Allergy status to other drugs, medicaments and biological substances; Z79.4 Long term (current) use of insulin; Z87.891 Personal history of nicotine dependence
CPT/HCPCS: 36415; 70450; 71010; 72125; 72141; 80048; 80061; 82550; 82553; 83735; 84443; 84484; 85025; 85610; 85730; 90662; 90670; 93005; 93041; 94760; 97161; 99285; G0008; G0009; G0378; G8978; G8979; G8980

== ENCOUNTER → 2017-03-19 | Outpatient (REF) | payer MEDICARE, MEDICAID ==
[~2017-03-19] MED LIST changes: +ASPI325T24 PO; +BIOTSPR MT; +FURO40TA2 PO; +METO1TAB32 PO
[2017-03-19 11:04] LABS: INR 2.44
== END ==
PROVIDERS: ATTEND Nurse Practitioner Family
DX: I48.2 Chronic atrial fibrillation (principal)

== ENCOUNTER 2017-03-22 00:05 | Emergency (ER) | payer MEDICARE, MEDICAID ==
[~2017-03-22] VITALS: Ht 180.3 cm; Wt 135.4 kg
[2017-03-22 01:26] LABS: BASO % 0.5 % (0.0-1.0); EOS # 0.4 K/mm3 (0.0-0.50); EOS % 4.7 % (0.0-3.0); LARGE UNSTAINED CELL # 0.3 K/mm3 (0.0-0.4); LARGE UNSTAINED CELL % 3.7 % (0.0-4.0); LYMPH # 2.1 K/mm3 (1.5-4.5); LYMPH % 27.4 % (24.0-44.0); MEAN CORPUSCULAR HEMOGLOBIN 30.2 pg (27.0-33.0); MEAN CORPUSCULAR VOLUME 91.6 fl (80.0-96.0); MONO # 0.5 K/mm3 (0.0-0.8); MONO % 6.5 % (0.0-5.0); NEUTROPHILS # 4.4 K/mm3 (1.8-7.7); NEUTROPHILS % 57.3 % (36.0-66.0); PLATELET COUNT, AUTOMATED 165 k/mm3 (150-450); RED CELL DISTRIBUTION WIDTH 13.9 % (11.5-14.5); WHITE BLOOD COUNT 7.6 K/mm3 (4.0-10.0)
[2017-03-22 01:33] LABS: INR 2.05
[2017-03-22 01:38] LABS: ANION GAP 8 MEQ/L (8-16); BLOOD UREA NITROGEN 24 MG/DL (7-18); CALCIUM LEVEL 8.4 MG/DL (8.8-10.2); CARBON DIOXIDE LEVEL 27 MEQ/L (21-32); CHLORIDE LEVEL 105 MEQ/L (98-107); CREATININE FOR GFR 1.14 MG/DL (0.70-1.30); GLOMERULAR FILTRATION RATE > 60.0 (>42); GLUCOSE, FASTING 129 MG/DL (83-110); POTASSIUM SERUM 3.5 MEQ/L (3.5-5.1); SODIUM LEVEL 140 MEQ/L (136-145)
[2017-03-22 09:24] VITALS: BP 130/76
--- NOTE | 2017-03-22 09:42 | REP ---
Clinical: Chest pain . Comparison: 03/13/2017 . Technique: PA and lateral. Findings: The mediastinum and cardiac silhouette are normal. The lung vigil are clear and without acute consolidation, effusion, or pneumothorax. The skeletal structures are intact and normal. Impression: 1. No acute cardiopulmonary process. Signed by Levi Johnson MD 03/22/2017 08:13 A
--- NOTE | 2017-03-23 17:13 | ECGEPIP ---
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
--- NOTE | 2017-03-23 17:13 | ECGEPIP ---
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
== END 2017-03-22 09:26 | disposition home or self-care (01) ==
LOC: M ED 00:05 → EDBD 00:05 → M ED 09:26
DX: R07.9 Chest pain, unspecified (principal); I25.10 Atherosclerotic heart disease of native coronary artery without angina pectoris; J44.9 Chronic obstructive pulmonary disease, unspecified; Z79.4 Long term (current) use of insulin; Z79.899 Other long term (current) drug therapy; Z79.84 Long term (current) use of oral hypoglycemic drugs; Z79.01 Long term (current) use of anticoagulants; Z79.82 Long term (current) use of aspirin; Z88.8 Allergy status to other drugs, medicaments and biological substances

== ENCOUNTER → 2017-04-23 | Outpatient (REF) | payer MEDICARE, MEDICAID ==
[2017-04-23 12:26] LABS: INR 1.98
== END ==
PROVIDERS: ATTEND Nurse Practitioner Family
DX: I48.2 Chronic atrial fibrillation (principal)

== ENCOUNTER 2017-04-24 14:14 | Emergency (ER) | payer MEDICARE, MEDICAID ==
--- NOTE | 2017-04-24 15:36 | REP ---
CT Head without contrast HISTORY: Fall COMPARISON: 03/13/2017 Areas of decreased attenuation are present in the periventricular white matter. This represents small-vessel ischemic disease. There is no intraparenchymal hemorrhage, acute infarct, mass or midline shift. The ventricular system and cortical sulci are dilated consistent with minimal volume loss. There is no extra cerebral collection. There is no fracture. A retention cyst or polyp is present in the left maxillary sinus. IMPRESSION: 1. Small vessel ischemic disease. 2. Minimal volume loss. Signed by Kali Pettit MD 04/24/2017 03:27 P
--- NOTE | 2017-04-24 15:45 | REP ---
Chest one-view HISTORY: Altered mental status Comparison: 03/22/2017 The lungs are clear. The heart is normal in size. The pulmonary vasculature is normal in appearance. Impression: No acute disease. Signed by Kali Pettit MD 04/24/2017 03:37 P
--- NOTE | 2017-04-24 15:49 | REP ---
CT CERVICAL SPINE WITHOUT CONTRAST: HISTORY: Fall. COMPARISON: 03/14/2017 There is no acute fracture. Disc bulges with associated osteophyte formation are present at the C3-4 through C6-7 levels. There is minimal narrowing of the spinal canal. Uncinate process and/or facet hypertrophy are present at the C2-3 through C7-T1 levels. These findings produce minimal to moderate narrowing of the neural foramina. The C2-3 through C7-T1 intervertebral discs are decreased in height consistent with disc degeneration. There are 2 mm of anterior subluxation of C3 on C4 and C4 on C5. IMPRESSION: 1. There is no acute fracture. 2. There is cervical spondylosis at the C2-3 through C7-T1 levels. Signed by Kali Pettit MD 04/24/2017 04:03 P
[2017-04-24 15:59] LABS: BASO # 0.1 10^3/uL (0.0-0.2); BASO % 0.5 % (0.0-1.0); EOS # 0.3 10^3/uL (0.0-0.50); EOS % 2.9 % (0.0-3.0); IMMATURE GRANULOCYTE % 0.4 % (0-0); LYMPH # 1.8 10^3/uL (1.5-4.5); LYMPH % 18.8 % (24.0-44.0); MEAN CORPUSCULAR HEMOGLOBIN 29.2 pg (27.0-33.0); MEAN CORPUSCULAR VOLUME 91.1 fl (80.0-96.0); MONO # 0.9 10^3/uL (0.0-0.8); MONO % 8.9 % (0.0-5.0); NEUTROPHILS # 6.7 10^3/uL (1.8-7.7); NEUTROPHILS % 68.5 % (36.0-66.0); PLATELET COUNT, AUTOMATED 168 10^3/uL (150-450); RED CELL DISTRIBUTION WIDTH 14.2 % (11.5-14.5); WHITE BLOOD COUNT 9.8 10^3/uL (4.0-10.0)
[2017-04-24 16:16] LABS: INR 1.72
[2017-04-24 16:29] LABS: ALBUMIN 3.5 GM/DL (3.2-5.2); ALBUMIN/GLOBULIN RATIO 1.06 (1.00-1.93); ALKALINE PHOSPHATASE 96 U/L (45-117); ALT/SGPT 16 U/L (12-78); ANION GAP 10 MEQ/L (8-16); AST/SGOT 13 U/L (15-37); BILIRUBIN,DIRECT < 0.1 MG/DL (0.0-0.2); BILIRUBIN,TOTAL 0.2 MG/DL (0.2-1.0); BLOOD UREA NITROGEN 19 MG/DL (7-18); CALCIUM LEVEL 8.7 MG/DL (8.8-10.2); CARBON DIOXIDE LEVEL 26 MEQ/L (21-32); CHLORIDE LEVEL 104 MEQ/L (98-107); CREATININE FOR GFR 1.11 MG/DL (0.70-1.30); GLOMERULAR FILTRATION RATE > 60.0 (>42); GLUCOSE, FASTING 115 MG/DL (83-110); SODIUM LEVEL 140 MEQ/L (136-145); TOTAL PROTEIN 6.8 GM/DL (6.4-8.2)
[2017-04-24] MEDS ORDERED: NS 500 ML IV ONE ×2 (17:45→19:15)
[2017-04-24 22:22] VITALS: BP 124/62
--- NOTE | 2017-04-25 07:07 | ECGEPIP ---
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
== END 2017-04-24 22:22 | disposition home or self-care (01) ==
LOC: M ED 14:14 → EDBD 14:14 → M ED 22:22
DX: R09.02 Hypoxemia (principal); I95.1 Orthostatic hypotension; M47.892 Other spondylosis, cervical region; M47.893 Other spondylosis, cervicothoracic region; I25.10 Atherosclerotic heart disease of native coronary artery without angina pectoris; I10 Essential (primary) hypertension; E11.9 Type 2 diabetes mellitus without complications; Z86.73 Personal history of transient ischemic attack (TIA), and cerebral infarction without residual deficits; G47.33 Obstructive sleep apnea (adult) (pediatric); Z79.82 Long term (current) use of aspirin; Z79.4 Long term (current) use of insulin; Z79.01 Long term (current) use of anticoagulants; Z79.899 Other long term (current) drug therapy; Z88.8 Allergy status to other drugs, medicaments and biological substances; Z88.1 Allergy status to other antibiotic agents

== ENCOUNTER → 2017-05-02 | Outpatient (REF) | payer MEDICARE, MEDICAID ==
[2017-05-02 18:35] LABS: FOLATE 5.3 NG/ML; VITAMIN B12 LEVEL 262 PG/ML
[2017-05-06 10:56] LABS: ALBUMIN 3.89 GM/DL (3.29-5.55); ALBUMIN % 55.6 % (55.8-66.1); GAMMA GLOBULIN % 14.3 % (11.1-18.8)
[2017-05-09 08:14] LABS: VITAMIN E LEVEL 33.9 mg/L (5.3-17.5)
== END ==
LOC: M LABNEURO 15:41
PROVIDERS: ATTEND Psychiatry & Neurology Neurology
DX: E11.9 Type 2 diabetes mellitus without complications (principal); E07.9 Disorder of thyroid, unspecified; R20.0 Anesthesia of skin

== ENCOUNTER → 2017-05-21 | Outpatient (REF) | payer MEDICARE, MEDICAID ==
[2017-05-21 11:08] LABS: INR 2.14
== END ==
PROVIDERS: ATTEND Nurse Practitioner Family
DX: I48.91 Unspecified atrial fibrillation (principal)

== ENCOUNTER → 2017-06-18 | Outpatient (REF) | payer MEDICARE, MEDICAID ==
[2017-06-18 11:17] LABS: INR 1.86
== END ==
PROVIDERS: ATTEND Nurse Practitioner Family
DX: I48.2 Chronic atrial fibrillation (principal); Z51.81 Encounter for therapeutic drug level monitoring; Z79.01 Long term (current) use of anticoagulants

== ENCOUNTER → 2017-06-18 | Outpatient (REF) | payer MEDICARE, MEDICAID ==
[2017-06-18 11:09] LABS: BASO % 0.6 % (0.0-1.0); EOS # 0.3 10^3/uL (0.0-0.50); EOS % 3.4 % (0.0-3.0); IMMATURE GRANULOCYTE % 0.4 % (0-0); LYMPH # 1.7 10^3/uL (1.5-4.5); LYMPH % 23.8 % (24.0-44.0); MEAN CORPUSCULAR HEMOGLOBIN 28.8 pg (27.0-33.0); MEAN CORPUSCULAR HGB CONC 32.2 g/dl (32.0-36.5); MEAN CORPUSCULAR VOLUME 89.4 fl (80.0-96.0); MONO # 0.7 10^3/uL (0.0-0.8); MONO % 9.6 % (0.0-5.0); NEUTROPHILS # 4.5 10^3/uL (1.8-7.7); NEUTROPHILS % 62.2 % (36.0-66.0); PLATELET COUNT, AUTOMATED 168 10^3/uL (150-450); RED CELL DISTRIBUTION WIDTH 14.2 % (11.5-14.5); WHITE BLOOD COUNT 7.3 10^3/uL (4.0-10.0)
[2017-06-18 11:29] LABS: ALBUMIN 3.2 GM/DL (3.2-5.2); ALBUMIN/GLOBULIN RATIO 0.84 (1.00-1.93); ALKALINE PHOSPHATASE 94 U/L (45-117); ALT/SGPT 17 U/L (12-78); ANION GAP 8 MEQ/L (8-16); AST/SGOT 15 U/L (7-37); BILIRUBIN,TOTAL 0.2 MG/DL (0.2-1.0); BLOOD UREA NITROGEN 17 MG/DL (7-18); CALCIUM LEVEL 8.7 MG/DL (8.8-10.2); CARBON DIOXIDE LEVEL 26 MEQ/L (21-32); CHLORIDE LEVEL 106 MEQ/L (98-107); CREATININE FOR GFR 0.83 MG/DL (0.70-1.30); GLOMERULAR FILTRATION RATE > 60.0 (>42); GLUCOSE, FASTING 131 MG/DL (83-110); POTASSIUM SERUM 3.9 MEQ/L (3.5-5.1); SODIUM LEVEL 140 MEQ/L (136-145)
== END ==
PROVIDERS: ATTEND Internal Medicine Cardiovascular Disease
DX: R94.31 Abnormal electrocardiogram [ECG] [EKG] (principal); I50.31 Acute diastolic (congestive) heart failure; I25.10 Atherosclerotic heart disease of native coronary artery without angina pectoris; I48.2 Chronic atrial fibrillation; Z51.81 Encounter for therapeutic drug level monitoring; Z79.01 Long term (current) use of anticoagulants

== ENCOUNTER → 2017-06-25 | Outpatient (REF) | payer MEDICARE, MEDICAID ==
[2017-06-25 10:40] LABS: INR 1.94
== END ==
PROVIDERS: ATTEND Nurse Practitioner Family
DX: I48.2 Chronic atrial fibrillation (principal)

== ENCOUNTER → 2017-07-03 | Outpatient (REF) | payer MEDICARE, MEDICAID ==
[2017-07-03 09:40] LABS: INR 2.24
== END ==
DX: I48.2 Chronic atrial fibrillation (principal)
CPT/HCPCS: 85610

== ENCOUNTER 2017-07-09 20:37 | Emergency (ER) | payer MEDICARE, MEDICAID ==
[2017-07-10 00:27] LABS: APPEARANCE, URINE MANUAL CLOUDY (CLEAR); COLOR, URINE MANUAL RED (YELLOW)
[2017-07-10 00:28] LABS: BLOOD URINE MANUAL POSITIVE (NEGATIVE); GLUCOSE, URINE (UA) MANUAL NEGATIVE (NEGATIVE); MICROSCOPIC INDICATED? MAN YES (NO)
[2017-07-10 00:29] LABS: NITRITE, URINE MANUAL NEGATIVE (NEGATIVE); PROTEIN, URINE MANUAL 2+ mg/dL (NEGATIVE)
[2017-07-10 00:31] LABS: BILIRUBIN, URINE MANUAL NEGATIVE (NEGATIVE); KETONE, URINE MANUAL NEGATIVE (NEGATIVE); UROBILINOGEN, URINE MANUAL NORMAL (NORMAL)
[2017-07-10 00:32] LABS: LEUKOCYTE ESTERASE, URINE MAN TRACE (NEGATIVE)
[2017-07-10 00:37] LABS: BASO % 0.4 % (0.0-1.0); EOS # 0.3 10^3/uL (0.0-0.50); EOS % 3.6 % (0.0-3.0); HEMATOCRIT 35.8 % (42.0-52.0); HEMOGLOBIN 11.5 g/dl (14.0-18.0); IMMATURE GRANULOCYTE % 0.4 % (0-0); LYMPH # 2.2 10^3/uL (1.5-4.5); LYMPH % 27.1 % (24.0-44.0); MEAN CORPUSCULAR HGB CONC 32.1 g/dl (32.0-36.5); MEAN CORPUSCULAR VOLUME 90.2 fl (80.0-96.0); MONO # 0.7 10^3/uL (0.0-0.8); MONO % 8.8 % (0.0-5.0); NEUTROPHILS # 4.9 10^3/uL (1.8-7.7); NEUTROPHILS % 59.7 % (36.0-66.0); PLATELET COUNT, AUTOMATED 164 10^3/uL (150-450); RED BLOOD COUNT 3.97 10^6/uL (4.30-6.10); RED CELL DISTRIBUTION WIDTH 14.4 % (11.5-14.5); WHITE BLOOD COUNT 8.2 10^3/uL (4.0-10.0)
[2017-07-10 00:41] LABS: PROTHROMBIN TIME 20.5 SECONDS (12.4-14.5)
[2017-07-10 00:48] LABS: RBC, URINE TNTC /hpf (0-3); SQUAMOUS EPITHELIAL CELL URINE SMALL AMOUNT /hpf (SMALL AMT)
[2017-07-10 00:49] LABS: ANION GAP 6 MEQ/L (8-16); BACTERIA, URINE MOD AMOUNT; BLOOD UREA NITROGEN 24 MG/DL (7-18); CALCIUM LEVEL 8.4 MG/DL (8.8-10.2); CARBON DIOXIDE LEVEL 28 MEQ/L (21-32); CHLORIDE LEVEL 107 MEQ/L (98-107); GLOMERULAR FILTRATION RATE > 60.0 (>42); GLUCOSE, FASTING 103 MG/DL (83-110); HYALINE CAST, URINE NONE SEEN /lpf (0-1); POTASSIUM SERUM 4.5 MEQ/L (3.5-5.1); SODIUM LEVEL 141 MEQ/L (136-145)
[2017-07-10 00:50] LABS: MICROSCOPIC EXAM PERFORMED
[2017-07-10 00:51] LABS: YEAST, URINE MOD AMOUNT
[2017-07-10] MEDS: CIPROFLOXACIN 500 MG TAB PO (01:29)
[2017-07-10] MEDS: FLUCONAZOLE 100 MG TAB PO (01:29)
== END 2017-07-10 02:31 | disposition home or self-care (01) ==
LOC: M ED 07-10 02:31
DX: N30.01 Acute cystitis with hematuria (principal); I48.91 Unspecified atrial fibrillation; E11.9 Type 2 diabetes mellitus without complications; I10 Essential (primary) hypertension; K21.9 Gastro-esophageal reflux disease without esophagitis; N40.0 Benign prostatic hyperplasia without lower urinary tract symptoms
CPT/HCPCS: 74176

== ENCOUNTER → 2017-07-12 | Outpatient (CLI) | payer MEDICARE, MEDICAID ==
[2017-07-12 18:29] LABS: NT-PRO BNP 96 PG/ML (<450)
== END ==
LOC: M SMT 10:16
DX: I50.32 Chronic diastolic (congestive) heart failure (principal)
CPT/HCPCS: 36415

== ENCOUNTER → 2017-07-16 | Outpatient (REF) | payer MEDICARE, MEDICAID ==
[2017-07-16 11:22] LABS: INR 2.83
== END ==
DX: I48.2 Chronic atrial fibrillation (principal)
CPT/HCPCS: 85610

== ENCOUNTER → 2017-07-23 | Outpatient (REF) | payer MEDICARE, MEDICAID ==
[2017-07-23 11:44] LABS: INR 2.54; PROTHROMBIN TIME 28.4 SECONDS (12.4-14.5)
== END ==
DX: I48.2 Chronic atrial fibrillation (principal)
CPT/HCPCS: 85610

== ENCOUNTER 2017-07-26 15:19 | Emergency (ER) | payer MEDICARE, MEDICAID ==
[2017-07-26 15:57] LABS: BASO % 0.5 % (0.0-1.0); EOS # 0.2 10^3/uL (0.0-0.50); EOS % 2.8 % (0.0-3.0); HEMATOCRIT 36.3 % (42.0-52.0); HEMOGLOBIN 11.5 g/dl (14.0-18.0); IMMATURE GRANULOCYTE % 0.2 % (0-0); LYMPH # 1.9 10^3/uL (1.5-4.5); LYMPH % 22.2 % (24.0-44.0); MEAN CORPUSCULAR HEMOGLOBIN 28.3 pg (27.0-33.0); MEAN CORPUSCULAR HGB CONC 31.7 g/dl (32.0-36.5); MEAN CORPUSCULAR VOLUME 89.4 fl (80.0-96.0); MONO # 0.7 10^3/uL (0.0-0.8); MONO % 8.5 % (0.0-5.0); NEUTROPHILS # 5.6 10^3/uL (1.8-7.7); NEUTROPHILS % 65.8 % (36.0-66.0); PLATELET COUNT, AUTOMATED 158 10^3/uL (150-450); RED BLOOD COUNT 4.06 10^6/uL (4.30-6.10); RED CELL DISTRIBUTION WIDTH 14.5 % (11.5-14.5); WHITE BLOOD COUNT 8.6 10^3/uL (4.0-10.0)
[2017-07-26 16:10] LABS: INR 2.15; PROTHROMBIN TIME 24.8 SECONDS (12.4-14.5)
[2017-07-26 16:16] LABS: PARTIAL THROMBOPLASTIN TIME 42.7 SECONDS (26.8-37.9)
[2017-07-26 16:31] LABS: ALBUMIN 3.3 GM/DL (3.2-5.2); ALKALINE PHOSPHATASE 84 U/L (45-117); ALT/SGPT 13 U/L (12-78); ANION GAP 11 MEQ/L (8-16); AST/SGOT 13 U/L (7-37); BILIRUBIN,DIRECT < 0.1 MG/DL (0.0-0.2); BILIRUBIN,TOTAL 0.2 MG/DL (0.2-1.0); BLOOD UREA NITROGEN 16 MG/DL (7-18); CALCIUM LEVEL 8.2 MG/DL (8.8-10.2); CARBON DIOXIDE LEVEL 24 MEQ/L (21-32); CHLORIDE LEVEL 107 MEQ/L (98-107); CPK CREATINE PHOSPHOKINASE 85 U/L (39-308); CREATININE FOR GFR 0.89 MG/DL (0.70-1.30); GLOMERULAR FILTRATION RATE > 60.0 (>42); GLUCOSE, FASTING 86 MG/DL (83-110); LIPASE 125 U/L (73-393); POTASSIUM SERUM 4.3 MEQ/L (3.5-5.1); SODIUM LEVEL 142 MEQ/L (136-145); TOTAL PROTEIN 6.6 GM/DL (6.4-8.2); TROPONIN I < 0.02 NG/ML (< 0.10)
[2017-07-26 16:37] LABS: CK-MB VALUE MASS 1.5 NG/ML (0.0-3.6); MB/CK RELATIVE INDEX 1.76 (< OR =4); NT-PRO BNP 116 PG/ML (<450)
[2017-07-26] MEDS ORDERED: ISOVUE-370 76% 100ML VIAL (Q9967) As Ordered (16:54)
[2017-07-26] MEDS: ASPIRIN 81 MG CHEW TABLET PO (17:00)
[2017-07-26 22:00] LABS: CPK CREATINE PHOSPHOKINASE 83 U/L (39-308); TROPONIN I < 0.02 NG/ML (< 0.10)
[2017-07-26 22:01] LABS: CK-MB VALUE MASS 1.7 NG/ML (0.0-3.6); MB/CK RELATIVE INDEX 2.04 (< OR =4)
== END 2017-07-26 23:25 | disposition home or self-care (01) ==
LOC: M ED 15:19
DX: R07.9 Chest pain, unspecified (principal); I44.4 Left anterior fascicular block; I48.91 Unspecified atrial fibrillation; I25.10 Atherosclerotic heart disease of native coronary artery without angina pectoris; Z86.73 Personal history of transient ischemic attack (TIA), and cerebral infarction without residual deficits; I10 Essential (primary) hypertension; K26.9 Duodenal ulcer, unspecified as acute or chronic, without hemorrhage or perforation; Z87.891 Personal history of nicotine dependence; Z79.82 Long term (current) use of aspirin; Z79.4 Long term (current) use of insulin; Z79.1 Long term (current) use of non-steroidal anti-inflammatories (NSAID); Z79.899 Other long term (current) drug therapy; Z88.8 Allergy status to other drugs, medicaments and biological substances; Z88.1 Allergy status to other antibiotic agents
CPT/HCPCS: Q9967

== ENCOUNTER → 2017-08-06 | Outpatient (REF) | payer MEDICARE, MEDICAID ==
[2017-08-06 11:46] LABS: ESTIMATED AVERAGE GLUCOSE 123 MG/DL (60-110); HEMOGLOBIN A1c 5.9 %
[2017-08-07 08:53] LABS: HEMATOCRIT 39.1 % (42.0-52.0); HEMOGLOBIN 12.6 g/dl (14.0-18.0); MEAN CORPUSCULAR HEMOGLOBIN 28.3 pg (27.0-33.0); MEAN CORPUSCULAR HGB CONC 32.2 g/dl (32.0-36.5); MEAN CORPUSCULAR VOLUME 87.9 fl (80.0-96.0); PLATELET COUNT, AUTOMATED 161 10^3/uL (150-450); RED BLOOD COUNT 4.45 10^6/uL (4.30-6.10); RED CELL DISTRIBUTION WIDTH 14.6 % (11.5-14.5); WHITE BLOOD COUNT 7.8 10^3/uL (4.0-10.0)
== END ==
DX: I10 Essential (primary) hypertension (principal); E11.9 Type 2 diabetes mellitus without complications
CPT/HCPCS: 83036

== ENCOUNTER → 2017-08-27 | Outpatient (REF) | payer MEDICARE, MEDICAID ==
[2017-08-27 09:45] LABS: INR 2.18; PROTHROMBIN TIME 25.1 SECONDS (12.4-14.5)
== END ==
DX: I48.2 Chronic atrial fibrillation (principal)
CPT/HCPCS: 85610

== ENCOUNTER 2017-09-07 11:40 | Emergency (ER) | payer MEDICARE, MEDICAID ==
[2017-09-07 12:18] LABS: HEMATOCRIT 36.8 % (42.0-52.0); HEMOGLOBIN 11.7 g/dl (14.0-18.0); MEAN CORPUSCULAR HEMOGLOBIN 28.2 pg (27.0-33.0); MEAN CORPUSCULAR HGB CONC 31.8 g/dl (32.0-36.5); MEAN CORPUSCULAR VOLUME 88.7 fl (80.0-96.0); PLATELET COUNT, AUTOMATED 145 10^3/uL (150-450); RED BLOOD COUNT 4.15 10^6/uL (4.30-6.10); RED CELL DISTRIBUTION WIDTH 15.1 % (11.5-14.5); WHITE BLOOD COUNT 7.4 10^3/uL (4.0-10.0)
[2017-09-07 12:32] LABS: INR 2.62; PROTHROMBIN TIME 29.1 SECONDS (12.4-14.5)
[2017-09-07 13:00] LABS: BILIRUBIN, URINE MANUAL NEGATIVE (NEGATIVE); BLOOD URINE MANUAL RFX POSITIVE (NEGATIVE); GLUCOSE, URINE (UA) MANUAL NEGATIVE (NEGATIVE); KETONE, URINE MANUAL NEGATIVE (NEGATIVE); MICROSCOPIC INDICATED? RFX YES (NO); NITRITE, URINE MANUAL RFX NEGATIVE (NEGATIVE); PROTEIN, URINE MANUAL REFLEX 2+ mg/dL (NEGATIVE); SP GRAVITY,URINE MANUAL REFLEX 1.011 (1.002-1.035); UROBILINOGEN, URINE MANUAL NORMAL (NORMAL)
[2017-09-07 13:01] LABS: RBC, URINE TNTC /hpf (0-3); SQUAMOUS EPITHELIAL CELL URINE SMALL AMOUNT /hpf (SMALL AMT)
[2017-09-07 13:02] LABS: BACTERIA, URINE NONE SEEN; HYALINE CAST, URINE NONE SEEN /lpf (0-1); MICROSCOPIC EXAM PERFORMED
== END 2017-09-07 14:06 | disposition home or self-care (01) ==
LOC: M ED 11:40
DX: N39.0 Urinary tract infection, site not specified (principal); E11.9 Type 2 diabetes mellitus without complications; I10 Essential (primary) hypertension; I25.10 Atherosclerotic heart disease of native coronary artery without angina pectoris; G89.29 Other chronic pain; E78.00 Pure hypercholesterolemia, unspecified; Z85.46 Personal history of malignant neoplasm of prostate; Z79.899 Other long term (current) drug therapy; Z79.82 Long term (current) use of aspirin; Z79.4 Long term (current) use of insulin; Z79.01 Long term (current) use of anticoagulants; Z88.1 Allergy status to other antibiotic agents; Z88.8 Allergy status to other drugs, medicaments and biological substances; Z87.891 Personal history of nicotine dependence
CPT/HCPCS: 85610

== ENCOUNTER → 2017-09-20 | Outpatient (CLI) | payer MEDICARE, MEDICAID ==
[2017-09-20 17:31] LABS: INR 2.41; PROTHROMBIN TIME 27.2 SECONDS (12.4-14.5)
[2017-09-20 19:19] LABS: APPEARANCE, URINE MANUAL HAZY (CLEAR); BILIRUBIN, URINE MANUAL NEGATIVE (NEGATIVE); BLOOD URINE MANUAL POSITIVE (NEGATIVE); COLOR, URINE MANUAL BROWN (YELLOW); GLUCOSE, URINE (UA) MANUAL NEGATIVE (NEGATIVE); KETONE, URINE MANUAL NEGATIVE (NEGATIVE); LEUKOCYTE ESTERASE, URINE MAN TRACE (NEGATIVE); MICROSCOPIC INDICATED? MAN YES (NO); NITRITE, URINE MANUAL NEGATIVE (NEGATIVE); PROTEIN, URINE MANUAL 1+ mg/dL (NEGATIVE); SPECIFIC GRAVITY,URINE MANUAL 1.015 (1.002-1.035); UROBILINOGEN, URINE MANUAL NORMAL (NORMAL)
[2017-09-20 19:37] LABS: BACTERIA, URINE NONE SEEN; HYALINE CAST, URINE NONE SEEN /lpf (0-1); RBC, URINE TNTC /hpf (0-3); SQUAMOUS EPITHELIAL CELL URINE NONE SEEN /hpf (SMALL AMT); WBC, URINE NONE SEEN /hpf (0-3)
[2017-09-20 19:38] LABS: MICROSCOPIC EXAM PERFORMED
== END ==
LOC: M SMT 12:00
DX: R31.9 Hematuria, unspecified (principal)
CPT/HCPCS: 85610

== ENCOUNTER → 2017-09-25 | Outpatient (CLI) | payer MEDICARE, MEDICAID ==
[2017-09-25 13:27] LABS: HEMATOCRIT 39.8 % (42.0-52.0); HEMOGLOBIN 12.4 g/dl (14.0-18.0); MEAN CORPUSCULAR HEMOGLOBIN 27.7 pg (27.0-33.0); MEAN CORPUSCULAR HGB CONC 31.2 g/dl (32.0-36.5); MEAN CORPUSCULAR VOLUME 88.8 fl (80.0-96.0); PLATELET COUNT, AUTOMATED 199 10^3/uL (150-450); RED BLOOD COUNT 4.48 10^6/uL (4.30-6.10); RED CELL DISTRIBUTION WIDTH 14.9 % (11.5-14.5); WHITE BLOOD COUNT 8.5 10^3/uL (4.0-10.0)
== END ==
LOC: M SMT 12:05
DX: D64.9 Anemia, unspecified (principal)
CPT/HCPCS: 85027

== ENCOUNTER 2017-10-05 23:02 | Emergency (ER) | payer MEDICARE, MEDICAID ==
[2017-10-05 23:55] LABS: BASO % 0.4 % (0.0-1.0); EOS # 0.2 10^3/uL (0.0-0.50); EOS % 2.1 % (0.0-3.0); HEMATOCRIT 38.7 % (42.0-52.0); IMMATURE GRANULOCYTE % 0.3 % (0-3.0); LYMPH % 22.8 % (24.0-44.0); MEAN CORPUSCULAR HEMOGLOBIN 27.6 pg (27.0-33.0); MONO # 0.8 10^3/uL (0.0-0.8); NEUTROPHILS # 5.8 10^3/uL (1.8-7.7); NEUTROPHILS % 65.4 % (36.0-66.0); PLATELET COUNT, AUTOMATED 167 10^3/uL (150-450); RED BLOOD COUNT 4.35 10^6/uL (4.30-6.10); RED CELL DISTRIBUTION WIDTH 15.2 % (11.5-14.5); WHITE BLOOD COUNT 8.9 10^3/uL (4.0-10.0)
[2017-10-06 00:10] LABS: INR 2.12; PROTHROMBIN TIME 24.5 SECONDS (12.4-14.5)
[2017-10-06 00:11] LABS: PARTIAL THROMBOPLASTIN TIME 42.6 SECONDS (26.8-37.9)
[2017-10-06 00:15] LABS: ANION GAP 7 MEQ/L (8-16); BLOOD UREA NITROGEN 21 MG/DL (7-18); CALCIUM LEVEL 8.5 MG/DL (8.8-10.2); CARBON DIOXIDE LEVEL 26 MEQ/L (21-32); CHLORIDE LEVEL 111 MEQ/L (98-107); CREATININE FOR GFR 1.03 MG/DL (0.70-1.30); GLOMERULAR FILTRATION RATE > 60.0 (>42); GLUCOSE, FASTING 104 MG/DL (70-100); POTASSIUM SERUM 4.5 MEQ/L (3.5-5.1); SODIUM LEVEL 144 MEQ/L (136-145)
[2017-10-06 01:05] LABS: APPEARANCE, URINE CLOUDY (CLEAR); BACTERIA, URINE AUTO NEGATIVE (NEGATIVE); BILIRUBIN, URINE AUTO NEGATIVE (NEGATIVE); BLOOD, URINE BLOOD 3+ (NEGATIVE); COLOR, URINE AMBER (YELLOW); GLUCOSE, URINE (UA) AUTO NEGATIVE (NEGATIVE); KETONE, URINE AUTO NEGATIVE (NEGATIVE); LEUKOCYTE ESTERASE, URINE AUTO TRACE (NEGATIVE); NITRITE, URINE AUTO NEGATIVE (NEGATIVE); PROTEIN, URINE AUTO 2+ mg/dL (NEGATIVE); RBC, URINE AUTO TNTC /HPF (0-3); SQUAMOUS EPITHELIAL CELL UR AU 2 /HPF (0-6); UROBILINOGEN, URINE AUTO 0.2 mg/dL (0.0-2.0); WBC, URINE AUTO 8 /HPF (0-3)
== END 2017-10-06 02:35 | disposition home or self-care (01) ==
LOC: M ED 23:02
DX: R31.9 Hematuria, unspecified (principal); E11.9 Type 2 diabetes mellitus without complications; F33.9 Major depressive disorder, recurrent, unspecified; I25.2 Old myocardial infarction; Z79.01 Long term (current) use of anticoagulants; Z87.19 Personal history of other diseases of the digestive system; Z87.891 Personal history of nicotine dependence; Z86.73 Personal history of transient ischemic attack (TIA), and cerebral infarction without residual deficits; Z88.8 Allergy status to other drugs, medicaments and biological substances; Z79.4 Long term (current) use of insulin; Z79.899 Other long term (current) drug therapy
CPT/HCPCS: 80048

== ENCOUNTER → 2017-10-08 | Outpatient (REF) | payer MEDICARE, MEDICAID ==
[2017-10-08 19:16] LABS: APPEARANCE, URINE CLEAR (CLEAR); BACTERIA, URINE AUTO NEGATIVE (NEGATIVE); BILIRUBIN, URINE AUTO NEGATIVE (NEGATIVE); BLOOD, URINE BLOOD 2+ (NEGATIVE); COLOR, URINE YELLOW (YELLOW); GLUCOSE, URINE (UA) AUTO NEGATIVE (NEGATIVE); KETONE, URINE AUTO NEGATIVE (NEGATIVE); LEUKOCYTE ESTERASE, URINE AUTO TRACE (NEGATIVE); MUCUS, URINE SMALL (NEGATIVE); NITRITE, URINE AUTO NEGATIVE (NEGATIVE); PROTEIN, URINE AUTO NEGATIVE (NEGATIVE); RBC, URINE AUTO 30 /HPF (0-3); SPECIFIC GRAVITY URINE AUTO 1.012 (1.002-1.035); SQUAMOUS EPITHELIAL CELL UR AU 0 /HPF (0-6); UROBILINOGEN, URINE AUTO 0.2 mg/dL (0.0-2.0); WBC, URINE AUTO 13 /HPF (0-3)
== END ==
LOC: M SMT 17:17
DX: R31.0 Gross hematuria (principal)
CPT/HCPCS: 81001

== ENCOUNTER → 2017-10-15 | Outpatient (REF) | payer MEDICARE, MEDICAID ==
[2017-10-15 10:44] LABS: INR 1.76
== END ==
DX: I48.2 Chronic atrial fibrillation (principal)
CPT/HCPCS: 85610

== ENCOUNTER → 2017-10-22 | Outpatient (REF) | payer MEDICARE, MEDICAID ==
[2017-10-22 09:37] LABS: PROTHROMBIN TIME 26.2 SECONDS (12.4-14.5)
== END ==
DX: I48.2 Chronic atrial fibrillation (principal)
CPT/HCPCS: 85610

== ENCOUNTER 2017-10-25 19:09 | Emergency (ER) | payer MEDICARE, MEDICAID ==
[2017-10-25 20:09] LABS: BASO % 0.3 % (0.0-1.0); EOS # 0.2 10^3/uL (0.0-0.50); EOS % 2.1 % (0.0-3.0); HEMATOCRIT 37.8 % (42.0-52.0); HEMOGLOBIN 11.9 g/dl (13.5-17.5); IMMATURE GRANULOCYTE % 0.2 % (0-3.0); INR 2.18; LYMPH # 1.6 10^3/uL (1.5-4.5); LYMPH % 18.1 % (24.0-44.0); MEAN CORPUSCULAR HEMOGLOBIN 27.5 pg (27.0-33.0); MEAN CORPUSCULAR HGB CONC 31.5 g/dl (32.0-36.5); MEAN CORPUSCULAR VOLUME 87.3 fl (80.0-96.0); MONO # 0.7 10^3/uL (0.0-0.8); MONO % 7.3 % (0.0-5.0); NEUTROPHILS # 6.4 10^3/uL (1.8-7.7); PLATELET COUNT, AUTOMATED 171 10^3/uL (150-450); PROTHROMBIN TIME 25.1 SECONDS (12.4-14.5); RED BLOOD COUNT 4.33 10^6/uL (4.30-6.10); RED CELL DISTRIBUTION WIDTH 15.3 % (11.5-14.5); WHITE BLOOD COUNT 8.9 10^3/uL (4.0-10.0)
[2017-10-25 20:19] LABS: ALBUMIN 3.4 GM/DL (3.2-5.2); ALBUMIN/GLOBULIN RATIO 0.92 (1.00-1.93); ALKALINE PHOSPHATASE 100 U/L (45-117); ALT/SGPT 21 U/L (12-78); ANION GAP 10 MEQ/L (8-16); AST/SGOT 26 U/L (7-37); BILIRUBIN,DIRECT < 0.1 MG/DL (0.0-0.2); BILIRUBIN,TOTAL 0.2 MG/DL (0.2-1.0); BLOOD UREA NITROGEN 18 MG/DL (7-18); CALCIUM LEVEL 8.5 MG/DL (8.8-10.2); CARBON DIOXIDE LEVEL 25 MEQ/L (21-32); CHLORIDE LEVEL 105 MEQ/L (98-107); CK-MB VALUE MASS 1.5 NG/ML (<3.6); CPK CREATINE PHOSPHOKINASE 99 U/L (39-308); CREATININE FOR GFR 0.93 MG/DL (0.70-1.30); GLOMERULAR FILTRATION RATE > 60.0 (>42); GLUCOSE, FASTING 99 MG/DL (70-100); LIPASE 368 U/L (73-393); MB/CK RELATIVE INDEX 1.51 (< OR =4); POTASSIUM SERUM 4.8 MEQ/L (3.5-5.1); SODIUM LEVEL 140 MEQ/L (136-145); TOTAL PROTEIN 7.1 GM/DL (6.4-8.2); TROPONIN I < 0.02 NG/ML (< 0.10)
[2017-10-25] MEDS: ASPIRIN 81 MG CHEW TABLET PO (20:20)
[2017-10-25] MEDS: NITROGLYCERIN 0.4 MG SUBL TABLET SL (20:20)
[2017-10-25] MEDS ORDERED: ISOVUE-370 76% 100ML VIAL (Q9967) As Ordered (21:25)
[2017-10-26 02:14] LABS: CPK CREATINE PHOSPHOKINASE 99 U/L (39-308); TROPONIN I < 0.02 NG/ML (< 0.10)
[2017-10-26 02:15] LABS: CK-MB VALUE MASS 1.7 NG/ML (<3.6); MB/CK RELATIVE INDEX 1.71 (< OR =4)
== END 2017-10-26 03:34 | disposition home or self-care (01) ==
LOC: M ED 10-26 03:34
DX: R07.9 Chest pain, unspecified (principal); I44.4 Left anterior fascicular block; I48.91 Unspecified atrial fibrillation; I25.10 Atherosclerotic heart disease of native coronary artery without angina pectoris; I10 Essential (primary) hypertension; Z86.73 Personal history of transient ischemic attack (TIA), and cerebral infarction without residual deficits; F32.9 Major depressive disorder, single episode, unspecified; K26.9 Duodenal ulcer, unspecified as acute or chronic, without hemorrhage or perforation; F17.200 Nicotine dependence, unspecified, uncomplicated; Z79.82 Long term (current) use of aspirin; Z79.4 Long term (current) use of insulin; Z79.01 Long term (current) use of anticoagulants; Z79.899 Other long term (current) drug therapy; Z88.8 Allergy status to other drugs, medicaments and biological substances; Z88.1 Allergy status to other antibiotic agents
CPT/HCPCS: Q9967

== ENCOUNTER → 2017-10-28 | Outpatient (REF) | payer MEDICARE, MEDICAID | LOC: M SMT 16:45 | DX: R31.0 Gross hematuria (principal) | CPT/HCPCS: 88108 ==

== ENCOUNTER → 2017-10-29 | Outpatient (REF) | payer MEDICARE, MEDICAID ==
[2017-10-29 10:43] LABS: HEMATOCRIT 37.1 % (42.0-52.0); HEMOGLOBIN 11.5 g/dl (13.5-17.5); MEAN CORPUSCULAR HEMOGLOBIN 26.9 pg (27.0-33.0); MEAN CORPUSCULAR VOLUME 86.9 fl (80.0-96.0); PLATELET COUNT, AUTOMATED 172 10^3/uL (150-450); RED BLOOD COUNT 4.27 10^6/uL (4.30-6.10); RED CELL DISTRIBUTION WIDTH 15.5 % (11.5-14.5); WHITE BLOOD COUNT 7.3 10^3/uL (4.0-10.0)
[2017-10-29 11:33] LABS: ALBUMIN 3.5 GM/DL (3.2-5.2); ALBUMIN/GLOBULIN RATIO 0.97 (1.00-1.93); ALKALINE PHOSPHATASE 100 U/L (45-117); ALT/SGPT 11 U/L (12-78); ANION GAP 8 MEQ/L (8-16); AST/SGOT 12 U/L (7-37); BILIRUBIN,TOTAL 0.3 MG/DL (0.2-1.0); BLOOD UREA NITROGEN 22 MG/DL (7-18); CALCIUM LEVEL 8.4 MG/DL (8.8-10.2); CARBON DIOXIDE LEVEL 25 MEQ/L (21-32); CHLORIDE LEVEL 107 MEQ/L (98-107); CREATININE FOR GFR 0.86 MG/DL (0.70-1.30); GLOMERULAR FILTRATION RATE > 60.0 (>42); GLUCOSE, FASTING 79 MG/DL (70-100); POTASSIUM SERUM 4.2 MEQ/L (3.5-5.1); SODIUM LEVEL 140 MEQ/L (136-145); TOTAL PROTEIN 7.1 GM/DL (6.4-8.2)
[2017-10-29 16:40] LABS: ESTIMATED AVERAGE GLUCOSE 134 MG/DL (60-110); HEMOGLOBIN A1c 6.3 %
== END ==
DX: E11.9 Type 2 diabetes mellitus without complications (principal); I50.9 Heart failure, unspecified; N18.9 Chronic kidney disease, unspecified
CPT/HCPCS: 80053

== ENCOUNTER → 2017-10-29 | Outpatient (REF) | payer MEDICARE, MEDICAID ==
[2017-10-29 10:53] LABS: INR 1.93; PROTHROMBIN TIME 22.7 SECONDS (12.4-14.5)
== END ==
DX: I25.2 Old myocardial infarction (principal); Z51.81 Encounter for therapeutic drug level monitoring; Z79.01 Long term (current) use of anticoagulants
CPT/HCPCS: 85610

== ENCOUNTER → 2017-11-11 | Outpatient (REF) | payer MEDICARE, MEDICAID ==
[2017-11-11 19:11] LABS: APPEARANCE, URINE HAZY (CLEAR); BACTERIA, URINE AUTO NEGATIVE (NEGATIVE); BILIRUBIN, URINE AUTO NEGATIVE (NEGATIVE); BLOOD, URINE BLOOD 3+ (NEGATIVE); COLOR, URINE YELLOW (YELLOW); GLUCOSE, URINE (UA) AUTO NEGATIVE (NEGATIVE); KETONE, URINE AUTO NEGATIVE (NEGATIVE); LEUKOCYTE ESTERASE, URINE AUTO NEGATIVE (NEGATIVE); NITRITE, URINE AUTO NEGATIVE (NEGATIVE); PROTEIN, URINE AUTO NEGATIVE (NEGATIVE); RBC, URINE AUTO TNTC /HPF (0-3); SQUAMOUS EPITHELIAL CELL UR AU 0 /HPF (0-6); UROBILINOGEN, URINE AUTO 0.2 mg/dL (0.0-2.0); WBC, URINE AUTO 4 /HPF (0-3)
== END ==
DX: R31.9 Hematuria, unspecified (principal)
CPT/HCPCS: 81001

== ENCOUNTER → 2017-11-19 | Outpatient (REF) | payer MEDICARE, MEDICAID ==
[2017-11-19 09:46] LABS: INR 2.08; PROTHROMBIN TIME 24.1 SECONDS (12.4-14.5)
== END ==
DX: I48.2 Chronic atrial fibrillation (principal)
CPT/HCPCS: 85610

== ENCOUNTER → 2017-11-29 | Outpatient (CLI) | payer MEDICARE, MEDICAID ==
[~2017-11-29] MED LIST changes: -/PANT40TA; -ACET-683 PO; -ACET500C PO; -ACET65TA; -ALBUTEROL INH; -ASPI1TAB PO; -ASPI325T24 PO; -ASPI81CH PO; -ASPI81TA3; -ATOR40TA75 PO; -BABY81CH OR; -BACT800T OR; -BIOTSPR MT; -CARA1TAB6 PO; -CIPR500T19; -COUM10TA PO; -COUM6TAB PO; -COUM7.5T PO; -COUMADIN PO; -CRES40TA; -EYE VITAMIN PO; -FLAG500T; -FLOM5CAP PO; -FURO20TA2 PO; -FURO40TA2 PO; -GABA-282 PO; -INSULADS SC; -INSULANT SC; +ISOVUE-370 76% 100ML VIAL (Q9967) As Ordered; -K-TA10TA PO; -KRIL300C PO; -LIPITO PO; -LISI5TAB; -LOPR50TA PO; -LORA10TA2 PO; -LORATADINE; -MACR100C43 PO; -METF10004 PO; -METF500T13 PO; -METFORMIN PO; -METO1TAB32 PO; -METO25TA4 PO; -NITR0.4S SL; -NITR4TASL SL; -NYST10PW TOP; -NYST1POW9 TOP; -PANT40TA2 PO; -PRED50TA OR; -PRESCAP6 PO; -RA K500C PO; -TAMS0.4C2 PO; -TEAR1SOL3 OU; -THERGRAN PO; -TRAM50TA2; -VENL75CA2 PO; -VENL75TA2 PO; -VITA100037 PO; -VITMTA PO; -WARF-60 PO; -WARF5VL PO; -XARE20TA PO
== END ==
LOC: M RAD 10:28
DX: R31.9 Hematuria, unspecified (principal)
CPT/HCPCS: Q9967

== ENCOUNTER → 2017-12-05 | Outpatient (CLI) | payer MEDICARE, MEDICAID | LOC: M SLEEP 19:51 | DX: G47.33 Obstructive sleep apnea (adult) (pediatric) (principal); G47.61 Periodic limb movement disorder | CPT/HCPCS: 95811 ==

== ENCOUNTER → 2017-12-06 | Outpatient (REF) | payer MEDICARE, MEDICAID ==
[2017-12-06 10:16] LABS: HEMATOCRIT 37.8 % (42.0-52.0); HEMOGLOBIN 12.2 g/dl (13.5-17.5); MEAN CORPUSCULAR HGB CONC 32.3 g/dl (32.0-36.5); MEAN CORPUSCULAR VOLUME 86.7 fl (80.0-96.0); PLATELET COUNT, AUTOMATED 153 10^3/uL (150-450); RED BLOOD COUNT 4.36 10^6/uL (4.30-6.10); WHITE BLOOD COUNT 6.4 10^3/uL (4.0-10.0)
[2017-12-06 11:09] LABS: ANION GAP 8 MEQ/L (8-16); BLOOD UREA NITROGEN 19 MG/DL (7-18); CALCIUM LEVEL 8.5 MG/DL (8.8-10.2); CARBON DIOXIDE LEVEL 25 MEQ/L (21-32); CHLORIDE LEVEL 107 MEQ/L (98-107); CREATININE FOR GFR 0.89 MG/DL (0.70-1.30); GLOMERULAR FILTRATION RATE > 60.0 (>42); GLUCOSE, FASTING 93 MG/DL (70-100); POTASSIUM SERUM 4.5 MEQ/L (3.5-5.1); SODIUM LEVEL 140 MEQ/L (136-145)
[2017-12-06 20:42] LABS: APPEARANCE, URINE HAZY (CLEAR); BACTERIA, URINE AUTO NEGATIVE (NEGATIVE); BILIRUBIN, URINE AUTO NEGATIVE (NEGATIVE); BLOOD, URINE BLOOD NEGATIVE (NEGATIVE); COLOR, URINE YELLOW (YELLOW); GLUCOSE, URINE (UA) AUTO NEGATIVE (NEGATIVE); KETONE, URINE AUTO NEGATIVE (NEGATIVE); LEUKOCYTE ESTERASE, URINE AUTO 1+ (NEGATIVE); MUCUS, URINE SMALL (NEGATIVE); NITRITE, URINE AUTO NEGATIVE (NEGATIVE); PROTEIN, URINE AUTO NEGATIVE (NEGATIVE); RBC, URINE AUTO 5 /HPF (0-3); SPECIFIC GRAVITY URINE AUTO 1.012 (1.002-1.035); SQUAMOUS EPITHELIAL CELL UR AU 2 /HPF (0-6); UROBILINOGEN, URINE AUTO 0.2 mg/dL (0.0-2.0); WBC, URINE AUTO 20 /HPF (0-3)
== END ==
DX: R31.0 Gross hematuria (principal)
CPT/HCPCS: 80048

== ENCOUNTER → 2017-12-09 | Outpatient (REF) | payer MEDICARE, MEDICAID ==
[2017-12-09 13:50] LABS: APPEARANCE, URINE CLEAR (CLEAR); BACTERIA, URINE AUTO NEGATIVE (NEGATIVE); BILIRUBIN, URINE AUTO NEGATIVE (NEGATIVE); BLOOD, URINE BLOOD 2+ (NEGATIVE); COLOR, URINE YELLOW (YELLOW); GLUCOSE, URINE (UA) AUTO NEGATIVE (NEGATIVE); KETONE, URINE AUTO NEGATIVE (NEGATIVE); LEUKOCYTE ESTERASE, URINE AUTO 1+ (NEGATIVE); MUCUS, URINE SMALL (NEGATIVE); NITRITE, URINE AUTO NEGATIVE (NEGATIVE); PROTEIN, URINE AUTO NEGATIVE (NEGATIVE); RBC, URINE AUTO 12 /HPF (0-3); SQUAMOUS EPITHELIAL CELL UR AU 1 /HPF (0-6); UROBILINOGEN, URINE AUTO 0.2 mg/dL (0.0-2.0); WBC, URINE AUTO 17 /HPF (0-3)
== END ==
LOC: M SMT 13:34
DX: R31.0 Gross hematuria (principal)
CPT/HCPCS: 81001

== ENCOUNTER → 2017-12-17 | Outpatient (REF) | payer MEDICARE, MEDICAID ==
[2017-12-17 09:52] LABS: INR 2.36; PROTHROMBIN TIME 26.7 SECONDS (12.4-14.5)
== END ==
DX: I48.2 Chronic atrial fibrillation (principal); Z79.01 Long term (current) use of anticoagulants
CPT/HCPCS: 85610

== ENCOUNTER → 2017-12-20 | Outpatient (REF) | payer MEDICARE, MEDICAID ==
[2017-12-20 13:59] LABS: AMORPHOUS SEDIMENT SMALL (NEGATIVE); APPEARANCE, URINE HAZY (CLEAR); BACTERIA, URINE AUTO NEGATIVE (NEGATIVE); BILIRUBIN, URINE AUTO NEGATIVE (NEGATIVE); BLOOD, URINE BLOOD 3+ (NEGATIVE); COLOR, URINE YELLOW (YELLOW); GLUCOSE, URINE (UA) AUTO NEGATIVE (NEGATIVE); KETONE, URINE AUTO NEGATIVE (NEGATIVE); LEUKOCYTE ESTERASE, URINE AUTO 1+ (NEGATIVE); MUCUS, URINE SMALL (NEGATIVE); NITRITE, URINE AUTO NEGATIVE (NEGATIVE); PROTEIN, URINE AUTO NEGATIVE (NEGATIVE); RBC, URINE AUTO 158 /HPF (0-3); SPECIFIC GRAVITY URINE AUTO 1.011 (1.002-1.035); SQUAMOUS EPITHELIAL CELL UR AU 0 /HPF (0-6); UROBILINOGEN, URINE AUTO 0.2 mg/dL (0.0-2.0); WBC, URINE AUTO 9 /HPF (0-3)
== END ==
LOC: M SMT 12:42
DX: R31.29 Other microscopic hematuria (principal)
CPT/HCPCS: 81001

== ENCOUNTER → 2018-01-07 | Outpatient (REF) | payer MEDICARE, MEDICAID ==
[2018-01-07 11:10] LABS: FOLATE 4.1 NG/ML; VITAMIN B12 LEVEL 828 PG/ML
== END ==
DX: E53.8 Deficiency of other specified B group vitamins (principal)
CPT/HCPCS: 82746

== ENCOUNTER → 2018-01-14 | Outpatient (REF) | payer MEDICARE, MEDICAID ==
[2018-01-14 10:31] LABS: INR 2.42; PROTHROMBIN TIME 26.9 SECONDS (12.1-14.4)
== END ==
DX: I48.2 Chronic atrial fibrillation (principal)
CPT/HCPCS: 85610

== ENCOUNTER 2018-02-03 12:02 | Emergency (ER) | payer MEDICARE, MEDICAID ==
[2018-02-03 13:14] LABS: HEMATOCRIT 35.9 % (42.0-52.0); HEMOGLOBIN 11.2 g/dl (13.5-17.5); MEAN CORPUSCULAR HEMOGLOBIN 27.1 pg (27.0-33.0); MEAN CORPUSCULAR HGB CONC 31.2 g/dl (32.0-36.5); MEAN CORPUSCULAR VOLUME 86.7 fl (80.0-96.0); PLATELET COUNT, AUTOMATED 152 10^3/uL (150-450); RED BLOOD COUNT 4.14 10^6/uL (4.30-6.10); RED CELL DISTRIBUTION WIDTH 15.4 % (11.5-14.5); WHITE BLOOD COUNT 8.1 10^3/uL (4.0-10.0)
[2018-02-03 14:51] LABS: INR 1.99; PROTHROMBIN TIME 22.9 SECONDS (12.1-14.4)
[2018-02-03 15:06] LABS: ANION GAP 11 MEQ/L (8-16); BLOOD UREA NITROGEN 23 MG/DL (7-18); CALCIUM LEVEL 8.5 MG/DL (8.8-10.2); CARBON DIOXIDE LEVEL 25 MEQ/L (21-32); CHLORIDE LEVEL 106 MEQ/L (98-107); CREATININE FOR GFR 0.87 MG/DL (0.70-1.30); GLOMERULAR FILTRATION RATE > 60.0 (>42); GLUCOSE, FASTING 98 MG/DL (70-100); POTASSIUM SERUM 4.2 MEQ/L (3.5-5.1); SODIUM LEVEL 142 MEQ/L (136-145)
== END 2018-02-03 17:17 | disposition home or self-care (01) ==
LOC: M ED 12:02
DX: S00.03XA Contusion of scalp, initial encounter (principal); W07.XXXA Fall from chair, initial encounter; Y92.098 Other place in other non-institutional residence as the place of occurrence of the external cause; I51.9 Heart disease, unspecified; E11.9 Type 2 diabetes mellitus without complications; K21.9 Gastro-esophageal reflux disease without esophagitis; Z86.73 Personal history of transient ischemic attack (TIA), and cerebral infarction without residual deficits; Z87.891 Personal history of nicotine dependence; Z88.8 Allergy status to other drugs, medicaments and biological substances; Z88.1 Allergy status to other antibiotic agents; Z79.899 Other long term (current) drug therapy; Z79.4 Long term (current) use of insulin; Z79.01 Long term (current) use of anticoagulants; Z79.82 Long term (current) use of aspirin
CPT/HCPCS: 70450

== ENCOUNTER → 2018-02-28 | Outpatient (REF) | payer MEDICARE, MEDICAID ==
[2018-02-28 10:37] LABS: INR 1.77; PROTHROMBIN TIME 20.9 SECONDS (12.1-14.4)
== END ==
DX: I48.2 Chronic atrial fibrillation (principal)
CPT/HCPCS: 85610

== ENCOUNTER → 2018-03-11 | Outpatient (REF) | payer MEDICARE, MEDICAID ==
[2018-03-11 11:20] LABS: INR 2.24; PROTHROMBIN TIME 25.2 SECONDS (12.1-14.4)
== END ==
DX: I48.2 Chronic atrial fibrillation (principal)
CPT/HCPCS: 85610

== ENCOUNTER 2018-03-23 09:10 | Inpatient (IN) | payer MEDICARE, MEDICAID ==
[2018-03-23 09:54] LABS: BASO % 0.2 % (0.0-1.0); EOS # 0.1 10^3/uL (0.0-0.50); EOS % 1.6 % (0.0-3.0); HEMOGLOBIN 12.3 g/dl (13.5-17.5); IMMATURE GRANULOCYTE % 0.4 % (0-3.0); LYMPH # 0.9 10^3/uL (1.5-4.5); LYMPH % 10.5 % (24.0-44.0); MEAN CORPUSCULAR HEMOGLOBIN 26.6 pg (27.0-33.0); MEAN CORPUSCULAR HGB CONC 31.5 g/dl (32.0-36.5); MEAN CORPUSCULAR VOLUME 84.4 fl (80.0-96.0); MONO # 0.9 10^3/uL (0.0-0.8); MONO % 10.6 % (0.0-5.0); NEUTROPHILS # 6.2 10^3/uL (1.8-7.7); NEUTROPHILS % 76.7 % (36.0-66.0); PLATELET COUNT, AUTOMATED 166 10^3/uL (150-450); RED BLOOD COUNT 4.62 10^6/uL (4.30-6.10); RED CELL DISTRIBUTION WIDTH 16.1 % (11.5-14.5); WHITE BLOOD COUNT 8.1 10^3/uL (4.0-10.0)
[2018-03-23 10:15] LABS: ALBUMIN 3.2 GM/DL (3.2-5.2); ALBUMIN/GLOBULIN RATIO 0.82 (1.00-1.93); ALKALINE PHOSPHATASE 93 U/L (45-117); ALT/SGPT 13 U/L (12-78); ANION GAP 9 MEQ/L (8-16); AST/SGOT 10 U/L (7-37); BILIRUBIN,DIRECT < 0.1 MG/DL (0.0-0.2); BILIRUBIN,TOTAL 0.3 MG/DL (0.2-1.0); BLOOD UREA NITROGEN 19 MG/DL (7-18); CALCIUM LEVEL 8.5 MG/DL (8.8-10.2); CARBON DIOXIDE LEVEL 22 MEQ/L (21-32); CHLORIDE LEVEL 107 MEQ/L (98-107); CPK CREATINE PHOSPHOKINASE 62 U/L (39-308); GLOMERULAR FILTRATION RATE > 60.0 (>42); GLUCOSE, FASTING 99 MG/DL (70-100); LIPASE 121 U/L (73-393); MB/CK RELATIVE INDEX 1.61 (< OR =4); NT-PRO BNP 66 PG/ML (<450); POTASSIUM SERUM 4.3 MEQ/L (3.5-5.1); SODIUM LEVEL 138 MEQ/L (136-145); TOTAL PROTEIN 7.1 GM/DL (6.4-8.2); TROPONIN I < 0.02 NG/ML (< 0.10)
[2018-03-23] MEDS: IPRATROPIUM 0.5MG/ALBUTEROL 2.5MG INH SOL UD 3ML (DUONEB)(J7620) NEB (13:50)
[2018-03-23 14:30] LABS: CPK CREATINE PHOSPHOKINASE 63 U/L (39-308); MB/CK RELATIVE INDEX 1.75 (< OR =4); NT-PRO BNP 89 PG/ML (<450); TROPONIN I < 0.02 NG/ML (< 0.10)
[2018-03-23] MEDS ORDERED: ISOVUE-370 76% 100ML VIAL (Q9967) As Ordered (14:53)
[2018-03-23] MEDS: NS 500 ML IV (15:00)
[2018-03-23] MEDS ORDERED: SODIUM CHLORIDE NASAL 0.65% SPRAY BTL (OCEAN) (16:30)
[2018-03-23] MEDS ORDERED: NYSTATIN 100,000 UNITS/GM TOPICAL PWD 15 GM TOP (16:30)
[2018-03-23] MEDS ORDERED: ZINC OXIDE 20% OINTMENT 60GM TUBE TOP (16:30)
[2018-03-23] MEDS ORDERED: DEXTROSE 50% 50 ML SYRINGE IV (16:45)
[2018-03-23] MEDS ORDERED: ONDANSETRON 4MG/2ML VIAL (J2405) IV (16:45)
[2018-03-23] MEDS ORDERED: GLUCOSE 4 GM CHEW TABLET PO (16:45)
[2018-03-23] MEDS ORDERED: GLUCAGON FOR INJ 1 MG VIAL (J1610) SC (16:45)
[2018-03-23 17:34] LABS: BEDSIDE GLUCOSE 122 MG/DL (83-110)
[2018-03-23] MEDS: HumaLOG INSULIN (NovoLOG) PER UNIT SC ×2 (17:52→21:00)
[2018-03-23] MEDS: ACETAMINOPHEN 500 MG TAB PO ×2 (17:52→21:50)
[2018-03-23] MEDS: WARFARIN SOD 5 MG TAB PO (18:40)
[2018-03-23] MEDS: METOPROLOL SUCC *XL* 25MG TAB (TopROL *XL*) PO (18:40)
[2018-03-23] MEDS: NS 1,000 ML IV (18:41)
[2018-03-23] MEDS: LEVEMIR (INSULIN DETEMIR) 1 UNITS/0.01ML SC ×2 (21:00→23:50)
[2018-03-23] MEDS: GABAPENTIN 300 MG CAP PO (21:48)
[2018-03-23] MEDS: SENOKOT S TAB PO (21:49)
[2018-03-23] MEDS: ATORVASTATIN 20 MG TAB PO (21:49)
[2018-03-23] MEDS: VENLAFAXINE **XR** 75MG CAPSULE PO (21:50)
[2018-03-23] MEDS: OCUVITE 1 TAB PO (21:50)
[2018-03-23 21:56] LABS: BEDSIDE GLUCOSE 116 MG/DL (83-110)
[2018-03-23 22:43] LABS: CPK CREATINE PHOSPHOKINASE 69 U/L (39-308); MB/CK RELATIVE INDEX 1.74 (< OR =4); TROPONIN I < 0.02 NG/ML (< 0.10)
[2018-03-24] MEDS: NS 1,000 ML IV (04:00)
[2018-03-24 05:31] LABS: HEMATOCRIT 38.4 % (42.0-52.0); HEMOGLOBIN 11.9 g/dl (13.5-17.5); MEAN CORPUSCULAR HEMOGLOBIN 26.3 pg (27.0-33.0); MEAN CORPUSCULAR VOLUME 84.8 fl (80.0-96.0); PLATELET COUNT, AUTOMATED 157 10^3/uL (150-450); RED BLOOD COUNT 4.53 10^6/uL (4.30-6.10); RED CELL DISTRIBUTION WIDTH 16.2 % (11.5-14.5); WHITE BLOOD COUNT 6.4 10^3/uL (4.0-10.0)
[2018-03-24 05:41] LABS: INR 1.86; PROTHROMBIN TIME 21.8 SECONDS (12.1-14.4)
[2018-03-24 05:56] LABS: ANION GAP 10 MEQ/L (8-16); BLOOD UREA NITROGEN 17 MG/DL (7-18); CALCIUM LEVEL 8.2 MG/DL (8.8-10.2); CARBON DIOXIDE LEVEL 21 MEQ/L (21-32); CHLORIDE LEVEL 110 MEQ/L (98-107); CPK CREATINE PHOSPHOKINASE 93 U/L (39-308); CREATININE FOR GFR 0.84 MG/DL (0.70-1.30); GLOMERULAR FILTRATION RATE > 60.0 (>42); GLUCOSE, FASTING 99 MG/DL (70-100); POTASSIUM SERUM 4.4 MEQ/L (3.5-5.1); SODIUM LEVEL 141 MEQ/L (136-145); TROPONIN I < 0.02 NG/ML (< 0.10)
[2018-03-24] MEDS: HumaLOG INSULIN (NovoLOG) PER UNIT SC ×4 (07:30→21:00)
[2018-03-24] MEDS: GABAPENTIN 300 MG CAP PO ×2 (08:43→21:51)
[2018-03-24] MEDS: VENLAFAXINE **XR** 75MG CAPSULE PO ×2 (08:43→21:51)
[2018-03-24] MEDS: ASPIRIN ENTERIC 325 MG TAB PO (08:43)
[2018-03-24] MEDS: CYANOCOBALAMIN 500 MCG TAB PO (08:43)
[2018-03-24] MEDS: TAMSULOSIN 0.4 MG CAP PO (08:43)
[2018-03-24] MEDS: SENOKOT S TAB PO ×2 (08:44→21:51)
[2018-03-24] MEDS: PANTOPRAZOLE 40MG TAB (PROTONIX) PO (08:44)
[2018-03-24] MEDS: FINASTERIDE 5 MG TAB PO (08:44)
[2018-03-24] MEDS: SUCRALFATE 1 GM TAB PO ×2 (08:44→16:29)
[2018-03-24] MEDS: METOPROLOL SUCC *XL* 25MG TAB (TopROL *XL*) PO (08:44)
[2018-03-24] MEDS: ACETAMINOPHEN 500 MG TAB PO ×4 (08:45→21:52)
[2018-03-24] MEDS: FLUoxetine 10 MG CAP PO (08:45)
[2018-03-24 12:44] LABS: BEDSIDE GLUCOSE 94 MG/DL (83-110)
[2018-03-24] MEDS: WARFARIN SOD 5 MG TAB PO (16:29)
[2018-03-24] MEDS: OCUVITE 1 TAB PO ×2 (16:29→21:50)
[2018-03-24] MEDS ORDERED: WARFARIN SOD 7.5 MG TAB PO (17:00)
[2018-03-24 17:37] LABS: BEDSIDE GLUCOSE 109 MG/DL (83-110)
[2018-03-24 20:54] LABS: BEDSIDE GLUCOSE 135 MG/DL (83-110)
[2018-03-24] MEDS: LEVEMIR (INSULIN DETEMIR) 1 UNITS/0.01ML SC (21:50)
[2018-03-24] MEDS: ATORVASTATIN 20 MG TAB PO (21:50)
[2018-03-25 05:57] LABS: ANION GAP 7 MEQ/L (8-16); BLOOD UREA NITROGEN 21 MG/DL (7-18); CALCIUM LEVEL 7.8 MG/DL (8.8-10.2); CARBON DIOXIDE LEVEL 23 MEQ/L (21-32); CHLORIDE LEVEL 112 MEQ/L (98-107); CREATININE FOR GFR 0.84 MG/DL (0.70-1.30); GLOMERULAR FILTRATION RATE > 60.0 (>42); GLUCOSE, FASTING 106 MG/DL (70-100); INR 2.29; MAGNESIUM LEVEL 1.9 MG/DL (1.8-2.4); POTASSIUM SERUM 4.1 MEQ/L (3.5-5.1); PROTHROMBIN TIME 25.7 SECONDS (12.1-14.4); SODIUM LEVEL 142 MEQ/L (136-145)
[2018-03-25 06:01] LABS: HEMATOCRIT 39.1 % (42.0-52.0); HEMOGLOBIN 11.9 g/dl (13.5-17.5); MEAN CORPUSCULAR HEMOGLOBIN 26.3 pg (27.0-33.0); MEAN CORPUSCULAR HGB CONC 30.4 g/dl (32.0-36.5); MEAN CORPUSCULAR VOLUME 86.3 fl (80.0-96.0); PLATELET COUNT, AUTOMATED 149 10^3/uL (150-450); RED BLOOD COUNT 4.53 10^6/uL (4.30-6.10); RED CELL DISTRIBUTION WIDTH 16.2 % (11.5-14.5); WHITE BLOOD COUNT 6.3 10^3/uL (4.0-10.0)
[2018-03-25] MEDS: HumaLOG INSULIN (NovoLOG) PER UNIT SC ×4 (07:54→21:00)
[2018-03-25] MEDS: OCUVITE 1 TAB PO ×2 (08:17→21:40)
[2018-03-25] MEDS: SENOKOT S TAB PO ×2 (08:17→21:00)
[2018-03-25] MEDS: ASPIRIN ENTERIC 325 MG TAB PO (08:17)
[2018-03-25] MEDS: SUCRALFATE 1 GM TAB PO ×2 (08:17→16:23)
[2018-03-25] MEDS: CYANOCOBALAMIN 500 MCG TAB PO (08:18)
[2018-03-25] MEDS: VENLAFAXINE **XR** 75MG CAPSULE PO ×2 (08:18→21:43)
[2018-03-25] MEDS: FLUoxetine 10 MG CAP PO (08:19)
[2018-03-25] MEDS: GABAPENTIN 300 MG CAP PO ×2 (08:19→21:41)
[2018-03-25] MEDS: METOPROLOL SUCC *XL* 25MG TAB (TopROL *XL*) PO (08:19)
[2018-03-25] MEDS: PANTOPRAZOLE 40MG TAB (PROTONIX) PO (08:19)
[2018-03-25] MEDS: TAMSULOSIN 0.4 MG CAP PO (08:19)
[2018-03-25] MEDS: ACETAMINOPHEN 500 MG TAB PO ×4 (08:19→21:43)
[2018-03-25] MEDS: FINASTERIDE 5 MG TAB PO (08:20)
[2018-03-25 11:42] LABS: BEDSIDE GLUCOSE 109 MG/DL (83-110)
[2018-03-25] MEDS: WARFARIN SOD 5 MG TAB PO (16:23)
[2018-03-25 16:33] LABS: BEDSIDE GLUCOSE 116 MG/DL (83-110)
[2018-03-25 20:26] LABS: BEDSIDE GLUCOSE 99 MG/DL (83-110)
[2018-03-25] MEDS: ATORVASTATIN 20 MG TAB PO (21:40)
[2018-03-25] MEDS: LEVEMIR (INSULIN DETEMIR) 1 UNITS/0.01ML SC (21:43)
[2018-03-26 06:06] LABS: HEMATOCRIT 38.7 % (42.0-52.0); MEAN CORPUSCULAR HEMOGLOBIN 26.4 pg (27.0-33.0); MEAN CORPUSCULAR VOLUME 85.2 fl (80.0-96.0); PLATELET COUNT, AUTOMATED 161 10^3/uL (150-450); RED BLOOD COUNT 4.54 10^6/uL (4.30-6.10); RED CELL DISTRIBUTION WIDTH 16.3 % (11.5-14.5); WHITE BLOOD COUNT 6.9 10^3/uL (4.0-10.0)
[2018-03-26 06:21] LABS: INR 2.61; PROTHROMBIN TIME 28.5 SECONDS (12.1-14.4)
[2018-03-26 06:22] LABS: ANION GAP 7 MEQ/L (8-16); BLOOD UREA NITROGEN 21 MG/DL (7-18); CALCIUM LEVEL 7.7 MG/DL (8.8-10.2); CARBON DIOXIDE LEVEL 25 MEQ/L (21-32); CHLORIDE LEVEL 111 MEQ/L (98-107); CREATININE FOR GFR 0.94 MG/DL (0.70-1.30); GLOMERULAR FILTRATION RATE > 60.0 (>42); GLUCOSE, FASTING 100 MG/DL (70-100); MAGNESIUM LEVEL 1.9 MG/DL (1.8-2.4); SODIUM LEVEL 143 MEQ/L (136-145)
[2018-03-26] MEDS: HumaLOG INSULIN (NovoLOG) PER UNIT SC (07:17)
[2018-03-26] MEDS: ACETAMINOPHEN 500 MG TAB PO (08:26)
[2018-03-26] MEDS: SUCRALFATE 1 GM TAB PO (08:27)
[2018-03-26] MEDS: METOPROLOL SUCC *XL* 25MG TAB (TopROL *XL*) PO (08:27)
[2018-03-26] MEDS: VENLAFAXINE **XR** 75MG CAPSULE PO (08:27)
[2018-03-26] MEDS: PANTOPRAZOLE 40MG TAB (PROTONIX) PO (08:27)
[2018-03-26] MEDS: SENOKOT S TAB PO (08:28)
[2018-03-26] MEDS: GABAPENTIN 300 MG CAP PO (08:28)
[2018-03-26] MEDS: ASPIRIN ENTERIC 325 MG TAB PO (08:28)
[2018-03-26] MEDS: CYANOCOBALAMIN 500 MCG TAB PO (08:28)
[2018-03-26] MEDS: TAMSULOSIN 0.4 MG CAP PO (08:28)
[2018-03-26] MEDS: FINASTERIDE 5 MG TAB PO (08:28)
[2018-03-26] MEDS: FLUoxetine 10 MG CAP PO (08:28)
[2018-03-26] MEDS: OCUVITE 1 TAB PO (09:18)
== END 2018-03-26 12:11 | DRG 556 ==
LOC: M ED 09:10 → M ED INP 16:31 → M PCU 20:46
DX: M62.81 Muscle weakness (generalized) (principal); Z68.41 Body mass index [BMI] 40.0-44.9, adult; E66.9 Obesity, unspecified; I95.1 Orthostatic hypotension; Z86.73 Personal history of transient ischemic attack (TIA), and cerebral infarction without residual deficits; I25.10 Atherosclerotic heart disease of native coronary artery without angina pectoris; I10 Essential (primary) hypertension; I48.91 Unspecified atrial fibrillation; Z79.01 Long term (current) use of anticoagulants; F32.9 Major depressive disorder, single episode, unspecified; G47.33 Obstructive sleep apnea (adult) (pediatric); Z79.899 Other long term (current) drug therapy; Z79.82 Long term (current) use of aspirin; Z79.4 Long term (current) use of insulin; Z88.8 Allergy status to other drugs, medicaments and biological substances; K26.9 Duodenal ulcer, unspecified as acute or chronic, without hemorrhage or perforation; Z87.891 Personal history of nicotine dependence; E11.9 Type 2 diabetes mellitus without complications; R07.9 Chest pain, unspecified

== ENCOUNTER → 2018-04-02 | Outpatient (REF) | payer MEDICARE, MEDICAID ==
[2018-04-02 10:05] LABS: PROTHROMBIN TIME 30.1 SECONDS (12.1-14.4)
== END ==
DX: R31.0 Gross hematuria (principal)
CPT/HCPCS: 85610

== ENCOUNTER → 2018-04-02 | Outpatient (REF) | payer MEDICARE, MEDICAID ==
[2018-04-02 19:21] LABS: APPEARANCE, URINE CLOUDY (CLEAR); BACTERIA, URINE AUTO NEGATIVE (NEGATIVE); BILIRUBIN, URINE AUTO NEGATIVE (NEGATIVE); BLOOD, URINE BLOOD 3+ (NEGATIVE); COLOR, URINE AMBER (YELLOW); GLUCOSE, URINE (UA) AUTO NEGATIVE (NEGATIVE); KETONE, URINE AUTO NEGATIVE (NEGATIVE); LEUKOCYTE ESTERASE, URINE AUTO NEGATIVE (NEGATIVE); NITRITE, URINE AUTO NEGATIVE (NEGATIVE); PROTEIN, URINE AUTO 2+ mg/dL (NEGATIVE); RBC, URINE AUTO TNTC /HPF (0-3); SPECIFIC GRAVITY URINE AUTO 1.019 (1.002-1.035); SQUAMOUS EPITHELIAL CELL UR AU 0 /HPF (0-6); UROBILINOGEN, URINE AUTO 0.2 mg/dL (0.0-2.0); WBC, URINE AUTO 12 /HPF (0-3)
== END ==
LOC: M SMT 16:54
DX: R31.0 Gross hematuria (principal)
CPT/HCPCS: 81001

== ENCOUNTER → 2018-04-08 | Outpatient (REF) | payer MEDICARE, MEDICAID ==
[2018-04-08 11:04] LABS: INR 4.61; PROTHROMBIN TIME 44.7 SECONDS (12.1-14.4)
== END ==
DX: R53.1 Weakness (principal); I48.2 Chronic atrial fibrillation; Z79.01 Long term (current) use of anticoagulants
CPT/HCPCS: 85610

== ENCOUNTER → 2018-04-08 | Outpatient (REF) | payer MEDICARE, MEDICAID ==
[2018-04-11 00:08] LABS: Methylmalonic Acid 70 nmol/L (0-378)
== END ==
DX: E53.8 Deficiency of other specified B group vitamins (principal)
CPT/HCPCS: 82607

== ENCOUNTER → 2018-04-15 | Outpatient (REF) | payer MEDICARE, MEDICAID ==
[2018-04-15 10:03] LABS: INR 2.53; PROTHROMBIN TIME 27.8 SECONDS (12.1-14.4)
== END ==
DX: I48.91 Unspecified atrial fibrillation (principal)
CPT/HCPCS: 85610

== ENCOUNTER 2018-04-21 15:49 | Emergency (ER) | payer MEDICARE, MEDICAID ==
[2018-04-21 18:02] LABS: HEMATOCRIT 36.1 % (42.0-52.0); HEMOGLOBIN 11.2 g/dl (13.5-17.5); MEAN CORPUSCULAR HEMOGLOBIN 26.5 pg (27.0-33.0); MEAN CORPUSCULAR VOLUME 85.5 fl (80.0-96.0); PLATELET COUNT, AUTOMATED 163 10^3/uL (150-450); RED BLOOD COUNT 4.22 10^6/uL (4.30-6.10); RED CELL DISTRIBUTION WIDTH 16.3 % (11.5-14.5); WHITE BLOOD COUNT 8.2 10^3/uL (4.0-10.0)
[2018-04-21 18:28] LABS: INR 2.79
[2018-04-21 18:36] LABS: ALBUMIN 3.1 GM/DL (3.2-5.2); ALBUMIN/GLOBULIN RATIO 0.91 (1.00-1.93); ALKALINE PHOSPHATASE 105 U/L (45-117); ALT/SGPT 16 U/L (12-78); ANION GAP 12 MEQ/L (8-16); AST/SGOT 15 U/L (7-37); BILIRUBIN,TOTAL 0.2 MG/DL (0.2-1.0); BLOOD UREA NITROGEN 22 MG/DL (7-18); CALCIUM LEVEL 8.2 MG/DL (8.8-10.2); CARBON DIOXIDE LEVEL 24 MEQ/L (21-32); CHLORIDE LEVEL 105 MEQ/L (98-107); CREATININE FOR GFR 1.12 MG/DL (0.70-1.30); GLOMERULAR FILTRATION RATE > 60.0 (>42); GLUCOSE, FASTING 102 MG/DL (70-100); POTASSIUM SERUM 4.5 MEQ/L (3.5-5.1); SODIUM LEVEL 141 MEQ/L (136-145); TOTAL PROTEIN 6.5 GM/DL (6.4-8.2)
== END 2018-04-21 22:19 | disposition home or self-care (01) ==
LOC: M ED 15:49
DX: S00.83XA Contusion of other part of head, initial encounter (principal); W01.0XXA Fall on same level from slipping, tripping and stumbling without subsequent striking against object, initial encounter; Y92.128 Other place in nursing home as the place of occurrence of the external cause; E11.9 Type 2 diabetes mellitus without complications; I48.91 Unspecified atrial fibrillation; Z79.899 Other long term (current) drug therapy; Z79.84 Long term (current) use of oral hypoglycemic drugs; Z79.82 Long term (current) use of aspirin; Z79.01 Long term (current) use of anticoagulants; Z88.1 Allergy status to other antibiotic agents; Z88.8 Allergy status to other drugs, medicaments and biological substances
CPT/HCPCS: 70450

== ENCOUNTER → 2018-04-22 | Outpatient (REF) | payer MEDICARE, MEDICAID ==
[2018-04-22 10:09] LABS: INR 2.53; PROTHROMBIN TIME 27.8 SECONDS (12.1-14.4)
== END ==
DX: I48.2 Chronic atrial fibrillation (principal); R53.1 Weakness
CPT/HCPCS: 85610

== ENCOUNTER → 2018-05-20 | Outpatient (REF) | payer MEDICARE, MEDICAID ==
[2018-05-20 14:15] LABS: INR 1.43; PROTHROMBIN TIME 17.7 SECONDS (12.1-14.4)
== END ==
DX: R53.1 Weakness (principal); I48.2 Chronic atrial fibrillation
CPT/HCPCS: 85610

== ENCOUNTER → 2018-06-03 | Outpatient (REF) | payer MEDICARE, MEDICAID ==
[2018-06-03 09:51] LABS: INR 1.47
== END ==
DX: I48.2 Chronic atrial fibrillation (principal); R53.1 Weakness
CPT/HCPCS: 85610

== ENCOUNTER → 2018-06-10 | Outpatient (REF) | payer MEDICARE, MEDICAID ==
[2018-06-10 10:17] LABS: INR 1.72; PROTHROMBIN TIME 20.4 SECONDS (12.1-14.4)
== END ==
DX: I48.2 Chronic atrial fibrillation (principal); R53.1 Weakness
CPT/HCPCS: 85610

== ENCOUNTER 2018-06-11 03:34 | Emergency (ER) | payer MEDICARE, MEDICAID | END 2018-06-11 07:12 | disposition home or self-care (01) | LOC: M ED 03:34 | DX: S70.01XA Contusion of right hip, initial encounter (principal); W01.0XXA Fall on same level from slipping, tripping and stumbling without subsequent striking against object, initial encounter; Y92.128 Other place in nursing home as the place of occurrence of the external cause; I10 Essential (primary) hypertension; J44.9 Chronic obstructive pulmonary disease, unspecified; I48.91 Unspecified atrial fibrillation; G47.33 Obstructive sleep apnea (adult) (pediatric); I25.10 Atherosclerotic heart disease of native coronary artery without angina pectoris; Z88.1 Allergy status to other antibiotic agents; Z88.8 Allergy status to other drugs, medicaments and biological substances; Z79.899 Other long term (current) drug therapy; Z79.82 Long term (current) use of aspirin; Z79.4 Long term (current) use of insulin; Z79.01 Long term (current) use of anticoagulants | CPT/HCPCS: 73502 ==

== ENCOUNTER → 2018-06-24 | Outpatient (REF) | payer MEDICARE, MEDICAID ==
[~2018-06-24] MED LIST changes: +/PANT40TA; +ACET-683 PO; +ACET500C PO; +ACET65TA; +ALBUTEROL INH; +ASPI1TAB PO; +ASPI325T25 PO; +ASPI81CH PO; +ASPI81TA3; +ATOR40TA75 PO; +BABY81CH OR; +BACT800T OR; +BIOTENE PO; +BIOTSPR MT; +CARA1TAB6 PO; +CIPR-249 PO; +CIPR-250 PO; +CIPR500T19; +COUM10TA PO; +COUM6TAB PO; +COUM7.5T PO; +COUMADIN PO; +CRES40TA; +DESI40PS2 TOP; +DIFL200T PO; +EYE VITAMIN PO; +FINA5TAB2 PO; +FINACRY; +FLAG500T; +FLOM0.4C39 PO; +FLUO10TA30 PO; +FURO20TA2 PO; +FURO40TA2 PO; +GABA-843 PO; +INSULADS SC; +INSULANT SC; -ISOVUE-370 76% 100ML VIAL (Q9967) As Ordered; +K-TA10TA PO; +KRIL300C PO; +LANTINJ4 SC; +LIPITO PO; +LISI5TAB; +LOPR50TA PO; +LORA10TA2 PO; +LORATADINE; +MACR100C43 PO; +METF10004 PO; +METF500T13 PO; +METFORMIN PO; +METO1TAB32 PO; +METO1TAB7 PO; +METO25TA4 PO; +MILKSUS5 PO; +NITR0.4S SL; +NITR4TASL SL; +NYST10PW TOP; +NYST1POW9 TOP; +OCEA0.654; +OXYB10TA PO; +PANT40TA3 PO; +PRED50TA OR; +PRESCAP6 PO; +RA K500C PO; +TAMS0.4C2 PO; +TEAR1SOL3 OU; +THERGRAN PO; +TOPR25TA13 PO; +TRAM50TA2; +VENL75CA2 PO; +VENL75TA2 PO; +VITA10002 PO; +VITA100037 PO; +VITMTA PO; +WARF-60 PO; +WARF5VL PO; +XARE20TA PO
[2018-06-24 09:50] LABS: INR 1.84; PROTHROMBIN TIME 21.6 SECONDS (12.1-14.4)
== END ==
PROVIDERS: ATTEND Nurse Practitioner Family
DX: I48.91 Unspecified atrial fibrillation (principal)

== ENCOUNTER → 2018-06-26 | Outpatient (REF) | payer MEDICARE, MEDICAID ==
[2018-06-26 17:29] LABS: APPEARANCE, URINE CLOUDY (CLEAR); BACTERIA, URINE AUTO 1+ (NEGATIVE); BILIRUBIN, URINE AUTO NEGATIVE (NEGATIVE); BLOOD, URINE BLOOD 2+ (NEGATIVE); COLOR, URINE YELLOW (YELLOW); GLUCOSE, URINE (UA) AUTO NEGATIVE (NEGATIVE); KETONE, URINE AUTO NEGATIVE (NEGATIVE); LEUKOCYTE ESTERASE, URINE AUTO 3+ (NEGATIVE); MUCUS, URINE SMALL (NEGATIVE); NITRITE, URINE AUTO NEGATIVE (NEGATIVE); PROTEIN, URINE AUTO 1+ mg/dL (NEGATIVE); RBC, URINE AUTO 137 /HPF (0-3); SPECIFIC GRAVITY URINE AUTO 1.019 (1.002-1.035); SQUAMOUS EPITHELIAL CELL UR AU 2 /HPF (0-6); UROBILINOGEN, URINE AUTO 0.2 mg/dL (0.0-2.0); WBC, URINE AUTO TNTC /HPF (0-3)
== END ==
DX: R41.82 Altered mental status, unspecified (principal)
CPT/HCPCS: 81001

== ENCOUNTER → 2018-07-09 | Outpatient (REF) | payer MEDICARE, MEDICAID ==
[2018-07-09 11:53] LABS: INR 1.57
== END ==
PROVIDERS: ATTEND Nurse Practitioner Family
DX: R53.83 Other fatigue (principal); I48.91 Unspecified atrial fibrillation

== ENCOUNTER 2018-07-12 13:20 | Emergency (ER) | payer MEDICARE, MEDICAID ==
--- NOTE | 2018-07-12 14:28 | REP ---
AP, LATERAL RIGHT KNEE, TWO VIEWS: HISTORY: Hip pain. There is no acute fracture or dislocation. There is moderate narrowing of the medial knee joint space. There is mild narrowing of the lateral knee joint space and patellofemoral joint space. Osteophytes are present on the patella. A small suprapatellar joint effusion is present. IMPRESSION: Degenerative change, as described above. Electronically Signed by Kali Pettit MD 07/12/2018 02:42 P
--- NOTE | 2018-07-12 14:29 | REP ---
PELVIS, ONE VIEW: HISTORY: Bilateral hip pain. There is no acute fracture or dislocation. There is mild narrowing of the joint spaces with associated sclerosis. IMPRESSION: Degenerative change as described above. Electronically Signed by Kali Pettit MD 07/12/2018 02:42 P
[2018-07-12 16:47] VITALS: BP 129/73
== END 2018-07-12 20:01 | disposition home or self-care (01) ==
LOC: EDBD 13:20 → M ED 13:20
DX: S80.211A Abrasion, right knee, initial encounter (principal); S80.01XA Contusion of right knee, initial encounter; S70.01XA Contusion of right hip, initial encounter; W19.XXXA Unspecified fall, initial encounter; Y92.121 Bathroom in nursing home as the place of occurrence of the external cause; I11.0 Hypertensive heart disease with heart failure; I50.9 Heart failure, unspecified; E78.00 Pure hypercholesterolemia, unspecified; I25.2 Old myocardial infarction; I25.10 Atherosclerotic heart disease of native coronary artery without angina pectoris; G47.33 Obstructive sleep apnea (adult) (pediatric); H40.9 Unspecified glaucoma; K21.9 Gastro-esophageal reflux disease without esophagitis; K57.92 Diverticulitis of intestine, part unspecified, without perforation or abscess without bleeding; N42.9 Disorder of prostate, unspecified; Z87.440 Personal history of urinary (tract) infections; M54.9 Dorsalgia, unspecified; E11.9 Type 2 diabetes mellitus without complications; F32.9 Major depressive disorder, single episode, unspecified; Z88.8 Allergy status to other drugs, medicaments and biological substances; Z88.1 Allergy status to other antibiotic agents; Z79.899 Other long term (current) drug therapy; Z79.4 Long term (current) use of insulin; Z79.01 Long term (current) use of anticoagulants; Z79.82 Long term (current) use of aspirin

== ENCOUNTER → 2018-07-22 | Outpatient (REF) | payer MEDICARE, MEDICAID ==
[2018-07-22 10:19] LABS: INR 2.04; PROTHROMBIN TIME 23.4 SECONDS (12.1-14.4)
== END ==
PROVIDERS: ATTEND Nurse Practitioner Family
DX: R53.83 Other fatigue (principal); I48.91 Unspecified atrial fibrillation

== ENCOUNTER 2018-09-15 17:22 | Emergency (ER) | payer MEDICARE, MEDICAID ==
[~2018-09-15] VITALS: Ht 177.8 cm; Wt 130.5 kg
[2018-09-15] MEDS ORDERED: ASPIRIN 81 MG CHEW TABLET PO ONE (18:00)
[2018-09-15] MEDS ORDERED: NS 1,000 ML IV SCH (18:00)
[2018-09-15] MEDS ORDERED: GI COCKTAIL 50ML BTL(HYOSCYAMINE/MAALOX/LIDOCAINE VISCOUS)(1:3:1) PO ONE (18:00)
[2018-09-15] MEDS ORDERED: ARTI99.0 OU (18:03)
[2018-09-15] MEDS ORDERED: AFRI0.056 NARES (18:03)
[2018-09-15] MEDS ORDERED: COUM1TAB17 PO (18:03)
[2018-09-15 18:31] LABS: BASO # 0.1 10^3/uL (0.0-0.2); BASO % 0.5 % (0.0-1.0); EOS # 0.5 10^3/uL (0.0-0.50); HEMATOCRIT 33.1 % (42.0-52.0); HEMOGLOBIN 10.1 g/dl (13.5-17.5); LYMPH # 2.1 10^3/uL (1.5-4.5); LYMPH % 22.5 % (24.0-44.0); MEAN CORPUSCULAR HEMOGLOBIN 25.4 pg (27.0-33.0); MEAN CORPUSCULAR HGB CONC 30.5 g/dl (32.0-36.5); MEAN CORPUSCULAR VOLUME 83.4 fl (80.0-96.0); MONO # 0.8 10^3/uL (0.0-0.8); MONO % 8.9 % (0.0-5.0); NEUTROPHILS # 5.7 10^3/uL (1.8-7.7); NEUTROPHILS % 62.8 % (36.0-66.0); PLATELET COUNT, AUTOMATED 171 10^3/uL (150-450); RED BLOOD COUNT 3.97 10^6/uL (4.30-6.10); WHITE BLOOD COUNT 9.1 10^3/uL (4.0-10.0)
--- NOTE | 2018-09-15 18:32 | REP ---
Chest one-view HISTORY: Chest pain Comparison: 03/23/2018 The lungs are clear. The heart is normal in size. The pulmonary vasculature is normal in appearance. Impression: No acute disease. Electronically Signed by Kali Pettit MD 09/15/2018 06:23 P
[2018-09-15 18:58] LABS: INR 2.94; PROTHROMBIN TIME 31.3 SECONDS (12.1-14.4)
[2018-09-15 18:59] LABS: ALBUMIN 3.1 GM/DL (3.2-5.2); ALT/SGPT 12 U/L (12-78); BILIRUBIN,DIRECT < 0.1 MG/DL (0.0-0.2); BILIRUBIN,TOTAL 0.2 MG/DL (0.2-1.0); BLOOD UREA NITROGEN 24 MG/DL (7-18); CALCIUM LEVEL 7.7 MG/DL (8.8-10.2); CARBON DIOXIDE LEVEL 21 MEQ/L (21-32); CHLORIDE LEVEL 110 MEQ/L (98-107); CPK CREATINE PHOSPHOKINASE 65 U/L (39-308); GLOMERULAR FILTRATION RATE > 60.0 (>42); GLUCOSE, FASTING 89 MG/DL (70-100); LIPASE 89 U/L (73-393); POTASSIUM SERUM 4.5 MEQ/L (3.5-5.1); SODIUM LEVEL 143 MEQ/L (136-145); TOTAL PROTEIN 6.4 GM/DL (6.4-8.2); TROPONIN I < 0.02 NG/ML (< 0.10)
--- NOTE | 2018-09-15 22:12 | ECGEPIP ---
Stationary ECG Study 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
--- NOTE | 2018-09-15 22:17 | ECGEPIP ---
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
[2018-09-15 23:03] LABS: CPK CREATINE PHOSPHOKINASE 64 U/L (39-308); MB/CK RELATIVE INDEX 2.03 (< OR =4); TROPONIN I < 0.02 NG/ML (< 0.10)
[2018-09-15] MEDS ORDERED: KEFL500C17 PO (23:46)
[2018-09-15 23:55] VITALS: BP 158/68
[2018-09-16] MEDS ORDERED: CEPHALEXIN 500 MG CAP PO ONE
== END 2018-09-16 00:35 | disposition home or self-care (01) ==
LOC: M ED 17:22
DX: I20.8 Other forms of angina pectoris (principal); R31.9 Hematuria, unspecified; I10 Essential (primary) hypertension; E78.5 Hyperlipidemia, unspecified; E11.9 Type 2 diabetes mellitus without complications; Z79.01 Long term (current) use of anticoagulants; Z79.899 Other long term (current) drug therapy; Z79.82 Long term (current) use of aspirin; Z79.4 Long term (current) use of insulin; Z88.8 Allergy status to other drugs, medicaments and biological substances

== ENCOUNTER → 2018-09-24 | Outpatient (REF) | payer MEDICARE, MEDICAID ==
[~2018-09-24] MED LIST changes: -/PANT40TA; +AFRI0.056 NARES; +AFRISPR3; +ARTI99.0 OU; +ASPI-255 PO; -ASPI1TAB PO; -ASPI325T25 PO; -ASPI81CH PO; +ASPI81CH49 PO; +ASPI81TA26 PO; +COUM1TAB17 PO; +GENT1SOL OU; +KEFL500C17 PO; +MAGN1TAB26 PO; +NATURAL; +NYST-15 TOP; -NYST10PW TOP; +PRES10CA2 PO; +PROT1TAB2; +TOPR25TA PO; -TOPR25TA13 PO; +VITA2000 PO; +ZINC40OI TOP; +[UNRECOGNIZED DRUG - CODE] OU
[2018-09-24 17:56] LABS: BASO # 0.1 10^3/uL (0.0-0.2); BASO % 0.7 % (0.0-1.0); EOS # 0.6 10^3/uL (0.0-0.50); EOS % 6.5 % (0.0-3.0); HEMATOCRIT 37.9 % (42.0-52.0); HEMOGLOBIN 11.3 g/dl (13.5-17.5); LYMPH % 21.8 % (24.0-44.0); MEAN CORPUSCULAR HEMOGLOBIN 25.7 pg (27.0-33.0); MEAN CORPUSCULAR HGB CONC 29.8 g/dl (32.0-36.5); MEAN CORPUSCULAR VOLUME 86.1 fl (80.0-96.0); MONO % 10.6 % (0.0-5.0); NEUTROPHILS # 5.4 10^3/uL (1.8-7.7); NEUTROPHILS % 59.8 % (36.0-66.0); PLATELET COUNT, AUTOMATED 210 10^3/uL (150-450)
[2018-09-24 18:32] LABS: ALBUMIN 3.5 GM/DL (3.2-5.2); ALT/SGPT 13 U/L (12-78); BILIRUBIN,TOTAL 0.2 MG/DL (0.2-1.0); BLOOD UREA NITROGEN 23 MG/DL (7-18); CALCIUM LEVEL 8.4 MG/DL (8.8-10.2); CARBON DIOXIDE LEVEL 23 MEQ/L (21-32); CHLORIDE LEVEL 108 MEQ/L (98-107); CHOLESTEROL LEVEL 162 MG/DL (<200); CHOLESTEROL RISK RATIO 3.857 (<5); CREATININE FOR GFR 1.08 MG/DL (0.70-1.30); GLOMERULAR FILTRATION RATE > 60.0 (>42); GLUCOSE, FASTING 90 MG/DL (70-100); HDL CHOLESTEROL 42 MG/DL (>40); LDL CHOLESTEROL 82 MG/DL (<100); MAGNESIUM LEVEL 1.5 MG/DL (1.8-2.4); NON-HDL-C 120 MG/DL; POTASSIUM SERUM 4.6 MEQ/L (3.5-5.1); SODIUM LEVEL 141 MEQ/L (136-145); TOTAL PROTEIN 7.3 GM/DL (6.4-8.2); TRIGLYCERIDES LEVEL 192 MG/DL (<150)
[2018-09-24 18:34] LABS: TOTAL 25(OH) VITAMIN D 21.2 NG/ML (30.0-100.0)
[2018-09-24 18:35] LABS: PTH INTACT 70.6 PG/ML (18.5-88.0)
== END ==
LOC: M SFHCPLAZ 15:09
PROVIDERS: ATTEND Nurse Practitioner Family
DX: I10 Essential (primary) hypertension (principal); E78.5 Hyperlipidemia, unspecified; E11.9 Type 2 diabetes mellitus without complications; E55.9 Vitamin D deficiency, unspecified; E66.01 Morbid (severe) obesity due to excess calories; Z68.41 Body mass index [BMI] 40.0-44.9, adult
CPT/HCPCS: 80053; 80061; 82306; 83036; 83735; 83970; 84439; 84443; 85025; G0463

== ENCOUNTER → 2018-10-09 | Outpatient (REF) | payer MEDICARE, MEDICAID ==
[~2018-10-09] MED LIST changes: -AFRISPR3; -ASPI-255 PO; +ASPI1TAB PO; +ASPI325T25 PO; +ASPI81CH PO; -ASPI81CH49 PO; -ASPI81TA26 PO; -GENT1SOL OU; +MAGN1TAB25 PO; -MAGN1TAB26 PO; -PRES10CA2 PO; -TOPR25TA PO; +TOPR25TA13 PO; -ZINC40OI TOP
[2018-10-10 11:01] LABS: CREATININE, URINE 54.2 MG/DL
== END ==
PROVIDERS: ATTEND Nurse Practitioner Family
DX: E11.9 Type 2 diabetes mellitus without complications (principal)

== ENCOUNTER 2018-10-12 16:25 | Emergency (ER) | payer MEDICARE, MEDICAID ==
[~2018-10-12] VITALS: Ht 177.8 cm; Wt 129.6 kg
[~2018-10-12 16:25] MED LIST changes: +ASPI-255 PO; -ASPI1TAB PO; -ASPI325T25 PO; -ASPI81CH PO; +ASPI81CH49 PO; +ASPI81TA26 PO; -MAGN1TAB25 PO; -NATURAL; +TOPR25TA PO; -TOPR25TA13 PO; -VITA2000 PO; -[UNRECOGNIZED DRUG - CODE] OU
[2018-10-12 17:01] LABS: BASO % 0.5 % (0.0-1.0); EOS # 0.5 10^3/uL (0.0-0.50); EOS % 5.7 % (0.0-3.0); HEMATOCRIT 34.7 % (42.0-52.0); HEMOGLOBIN 10.3 g/dl (13.5-17.5); LYMPH # 1.8 10^3/uL (1.5-4.5); MEAN CORPUSCULAR HEMOGLOBIN 25.6 pg (27.0-33.0); MEAN CORPUSCULAR HGB CONC 29.7 g/dl (32.0-36.5); MEAN CORPUSCULAR VOLUME 86.1 fl (80.0-96.0); MONO # 0.7 10^3/uL (0.0-0.8); MONO % 8.4 % (0.0-5.0); NEUTROPHILS # 5.4 10^3/uL (1.8-7.7); NEUTROPHILS % 63.5 % (36.0-66.0); PLATELET COUNT, AUTOMATED 174 10^3/uL (150-450); RED BLOOD COUNT 4.03 10^6/uL (4.30-6.10); WHITE BLOOD COUNT 8.5 10^3/uL (4.0-10.0)
--- NOTE | 2018-10-12 17:13 | REP ---
Clinical: Chest pain Comparison: 09/15/2018 . Findings: The mediastinum and cardiac silhouette are stable and within normal limits for portable technique. The lung vigil are clear without acute consolidation, effusion, or pneumothorax. Skeletal structures are intact. Impression: No acute cardiopulmonary process appreciated. Electronically Signed by Levi Johnson MD 10/12/2018 05:05 P
[2018-10-12 17:33] LABS: ALT/SGPT 13 U/L (12-78); BILIRUBIN,DIRECT < 0.1 MG/DL (0.0-0.2); BILIRUBIN,TOTAL 0.2 MG/DL (0.2-1.0); BLOOD UREA NITROGEN 20 MG/DL (7-18); CALCIUM LEVEL 8.3 MG/DL (8.8-10.2); CARBON DIOXIDE LEVEL 27 MEQ/L (21-32); CHLORIDE LEVEL 107 MEQ/L (98-107); CPK CREATINE PHOSPHOKINASE 287 U/L (39-308); CREATININE FOR GFR 1.02 MG/DL (0.70-1.30); GLOMERULAR FILTRATION RATE > 60.0 (>42); GLUCOSE, FASTING 101 MG/DL (70-100); INR 2.41; LIPASE 108 U/L (73-393); MB/CK RELATIVE INDEX 1.92 (< OR =4); NT-PRO BNP 138 PG/ML (<450); POTASSIUM SERUM 4.9 MEQ/L (3.5-5.1); PROTHROMBIN TIME 26.7 SECONDS (12.1-14.4); SODIUM LEVEL 141 MEQ/L (136-145); TOTAL PROTEIN 6.3 GM/DL (6.4-8.2); TROPONIN I < 0.02 NG/ML (< 0.10)
[2018-10-12] MEDS ORDERED: VITA2000 PO (17:41)
[2018-10-12] MEDS ORDERED: [UNRECOGNIZED DRUG - CODE] OU (17:41)
[2018-10-12] MEDS ORDERED: MAGN1TAB26 PO (17:41)
[2018-10-12] MEDS ORDERED: NATURAL (17:41)
--- NOTE | 2018-10-12 18:09 | ECGEPIP ---
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
[2018-10-12 22:15] VITALS: BP 146/70
[2018-10-13 00:07] LABS: CPK CREATINE PHOSPHOKINASE 243 U/L (39-308); MB/CK RELATIVE INDEX 1.85 (< OR =4); TROPONIN I < 0.02 NG/ML (< 0.10)
--- NOTE | 2018-10-13 05:42 | ECGEPIP ---
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
== END 2018-10-13 01:19 | disposition home or self-care (01) ==
LOC: M ED 16:25 → EDBD 16:25 → M ED 10-13 01:19
DX: R07.9 Chest pain, unspecified (principal); J44.9 Chronic obstructive pulmonary disease, unspecified; E11.9 Type 2 diabetes mellitus without complications; I11.0 Hypertensive heart disease with heart failure; I50.9 Heart failure, unspecified; I25.10 Atherosclerotic heart disease of native coronary artery without angina pectoris; I48.91 Unspecified atrial fibrillation; G47.33 Obstructive sleep apnea (adult) (pediatric); Z79.899 Other long term (current) drug therapy; Z79.82 Long term (current) use of aspirin; Z79.4 Long term (current) use of insulin; Z79.01 Long term (current) use of anticoagulants; Z88.1 Allergy status to other antibiotic agents; Z88.8 Allergy status to other drugs, medicaments and biological substances; Z87.891 Personal history of nicotine dependence

== ENCOUNTER 2018-10-15 15:54 | Emergency (ER) | payer MEDICARE, MEDICAID ==
[~2018-10-15] VITALS: Ht 177.8 cm; Wt 129.1 kg
[~2018-10-15 15:54] MED LIST changes: +MAGN1TAB26 PO; +NATURAL; +VITA2000 PO; +[UNRECOGNIZED DRUG - CODE] OU
[2018-10-15] MEDS ORDERED: ACETAMINOPHEN 325 MG TAB PO ONE (16:15)
[2018-10-15] MEDS ORDERED: AFRISPR3 (16:53)
[2018-10-15] MEDS ORDERED: PRES10CA2 PO (16:53)
[2018-10-15] MEDS ORDERED: GENT1SOL OU (16:53)
[2018-10-15] MEDS ORDERED: ZINC40OI TOP (16:53)
--- NOTE | 2018-10-15 17:12 | REP ---
The brain without contrast: History: Patient on Coumadin. Injury in a fall. Comparison head CT study April 21, 2018. CT findings: Digital preliminary unishear operator radiograph is unremarkable. Bone window settings demonstrate no evidence of skull fracture. No bony destructive lesion is seen. There are mucosal changes in the maxillary sinuses bilaterally including a 2 cm mucous retention cyst in the left maxillary sinus. This is unchanged from the comparison CT. No significant scalp hematoma is appreciated. No intraorbital abnormality is observed. On soft tissue window settings, there is moderate diffuse cerebral atrophy. There is no evidence of intracranial hemorrhage. No extra-axial fluid collection is seen. No mass, infarct, or midline shift is seen. Impression: Diffuse moderate atrophy. No acute intracranial abnormality. Stable mucous retention cyst left maxillary sinus. No skull fracture. Electronically Signed by Joseluis Lock MD 10/15/2018 05:34 P
--- NOTE | 2018-10-15 17:17 | REP ---
AP pelvis: There are no pelvic fractures. The sacroiliac articulations are unremarkable. The hip articulations are unremarkable. There are no calcifications. There is degenerative disc disease in the inferior lumbar spine. Impression: Negative AP pelvis except for degenerative disc disease in the inferior lumbar spine. Electronically Signed by Félix Medley MD 10/15/2018 05:08 P
--- NOTE | 2018-10-15 17:20 | REP ---
Right hip two views : There is no fracture or dislocation. Mineralization and joint spaces are normal. There are no calcifications or foreign bodies. Impression: Negative right hip Left hip two views : There is no fracture or dislocation. Mineralization and joint spaces are normal. There are no calcifications or foreign bodies. Impression: Negative left hip . Electronically Signed by Félix Medley MD 10/15/2018 05:11 P
--- NOTE | 2018-10-15 17:34 | REP ---
Lumbar spine series: Five views. History: Injury in a fall. Findings: Five views of the lumbar spine show straightening. Lumbar vertebral body heights are preserved. There is diffuse degenerative disc disease. This is most pronounced at L3-4 and L4-5 where there are reactive sclerotic changes as well as osteophytes. There is no evidence of spondylolysis or spondylolisthesis. There is osteoarthritic facet sclerosis and hypertrophy bilaterally at L5-S1 and L4-5. No bony destructive lesion is seen. Sacrum and SI joints are intact. Impression: Degenerative spondylosis changes. No traumatic abnormality noted. Electronically Signed by Joseluis Lock MD 10/16/2018 08:06 A
[2018-10-15 17:42] LABS: BASO % 0.3 % (0.0-1.0); EOS # 0.5 10^3/uL (0.0-0.50); EOS % 5.3 % (0.0-3.0); HEMATOCRIT 33.6 % (42.0-52.0); HEMOGLOBIN 10.2 g/dl (13.5-17.5); LYMPH # 1.7 10^3/uL (1.5-4.5); LYMPH % 19.4 % (24.0-44.0); MEAN CORPUSCULAR HEMOGLOBIN 25.8 pg (27.0-33.0); MEAN CORPUSCULAR HGB CONC 30.4 g/dl (32.0-36.5); MEAN CORPUSCULAR VOLUME 84.8 fl (80.0-96.0); MONO # 0.9 10^3/uL (0.0-0.8); MONO % 10.4 % (0.0-5.0); NEUTROPHILS # 5.7 10^3/uL (1.8-7.7); PLATELET COUNT, AUTOMATED 165 10^3/uL (150-450); RED BLOOD COUNT 3.96 10^6/uL (4.30-6.10); WHITE BLOOD COUNT 8.9 10^3/uL (4.0-10.0)
[2018-10-15 17:53] LABS: INR 1.7; PROTHROMBIN TIME 20.3 SECONDS (12.1-14.4)
[2018-10-15 17:54] LABS: PARTIAL THROMBOPLASTIN TIME 33.9 SECONDS (25.4-37.6)
[2018-10-15 18:09] LABS: BLOOD UREA NITROGEN 21 MG/DL (7-18); CALCIUM LEVEL 8.5 MG/DL (8.8-10.2); CARBON DIOXIDE LEVEL 21 MEQ/L (21-32); CHLORIDE LEVEL 109 MEQ/L (98-107); CREATININE FOR GFR 1.08 MG/DL (0.70-1.30); GLOMERULAR FILTRATION RATE > 60.0 (>42); GLUCOSE, FASTING 96 MG/DL (70-100); POTASSIUM SERUM 4.4 MEQ/L (3.5-5.1); SODIUM LEVEL 141 MEQ/L (136-145)
[2018-10-15 19:06] VITALS: BP 141/76
== END 2018-10-15 19:38 | disposition home or self-care (01) ==
LOC: M ED 15:54 → EDBD 15:54 → M ED 19:38
DX: M54.5 Low back pain (principal); E11.9 Type 2 diabetes mellitus without complications; I11.0 Hypertensive heart disease with heart failure; I50.9 Heart failure, unspecified; K21.9 Gastro-esophageal reflux disease without esophagitis; E78.9 Disorder of lipoprotein metabolism, unspecified; I25.10 Atherosclerotic heart disease of native coronary artery without angina pectoris; Z79.899 Other long term (current) drug therapy; Z79.4 Long term (current) use of insulin; Z79.82 Long term (current) use of aspirin; Z79.01 Long term (current) use of anticoagulants; Z88.1 Allergy status to other antibiotic agents; Z88.8 Allergy status to other drugs, medicaments and biological substances; Z87.891 Personal history of nicotine dependence

== ENCOUNTER → 2018-11-05 | Outpatient (REF) | payer MEDICARE, MEDICAID ==
[~2018-11-05] MED LIST changes: +AFRISPR3; +GENT1SOL OU; +PRES10CA2 PO; +ZINC40OI TOP
[2018-11-05 14:02] LABS: APPEARANCE, URINE HAZY (CLEAR); BACTERIA, URINE AUTO NEGATIVE (NEGATIVE); BILIRUBIN, URINE AUTO NEGATIVE (NEGATIVE); BLOOD, URINE BLOOD 2+ (NEGATIVE); COLOR, URINE YELLOW (YELLOW); GLUCOSE, URINE (UA) AUTO NEGATIVE (NEGATIVE); KETONE, URINE AUTO NEGATIVE (NEGATIVE); LEUKOCYTE ESTERASE, URINE AUTO 3+ (NEGATIVE); NITRITE, URINE AUTO NEGATIVE (NEGATIVE); PROTEIN, URINE AUTO 1+ mg/dL (NEGATIVE); RBC, URINE AUTO 103 /HPF (0-3); SPECIFIC GRAVITY URINE AUTO 1.013 (1.002-1.035); SQUAMOUS EPITHELIAL CELL UR AU 0 /HPF (0-6); UROBILINOGEN, URINE AUTO 0.2 mg/dL (0.0-2.0); WBC, URINE AUTO 82 /HPF (0-3)
== END ==
LOC: M SMT 12:47
PROVIDERS: ATTEND Nurse Practitioner Women's Health
DX: R35.0 Frequency of micturition (principal)

== ENCOUNTER → 2018-11-07 | Outpatient (REF) ==
[2018-11-07 18:12] LABS: INR 1.79; PROTHROMBIN TIME 21.1 SECONDS (12.1-14.4)
== END ==
PROVIDERS: ATTEND Family Medicine
DX: I48.91 Unspecified atrial fibrillation (principal)

== ENCOUNTER → 2018-11-12 | Outpatient (REF) ==
[2018-11-12 09:13] LABS: HEMATOCRIT 39.5 % (42.0-52.0); HEMOGLOBIN 11.7 g/dl (13.5-17.5); MEAN CORPUSCULAR HEMOGLOBIN 25.4 pg (27.0-33.0); MEAN CORPUSCULAR HGB CONC 29.6 g/dl (32.0-36.5); MEAN CORPUSCULAR VOLUME 85.7 fl (80.0-96.0); PLATELET COUNT, AUTOMATED 223 10^3/uL (150-450); RED BLOOD COUNT 4.61 10^6/uL (4.30-6.10); WHITE BLOOD COUNT 9.1 10^3/uL (4.0-10.0)
[2018-11-12 09:22] LABS: INR 1.45; PROTHROMBIN TIME 17.9 SECONDS (12.1-14.4)
[2018-11-12 09:35] LABS: BLOOD UREA NITROGEN 15 MG/DL (7-18); CARBON DIOXIDE LEVEL 26 MEQ/L (21-32); CHLORIDE LEVEL 105 MEQ/L (98-107); CREATININE FOR GFR 1.05 MG/DL (0.70-1.30); GLOMERULAR FILTRATION RATE > 60.0 (>42); GLUCOSE, FASTING 101 MG/DL (70-100); POTASSIUM SERUM 4.4 MEQ/L (3.5-5.1); SODIUM LEVEL 139 MEQ/L (136-145)
== END ==
PROVIDERS: ATTEND Family Medicine
DX: I48.91 Unspecified atrial fibrillation (principal)

== ENCOUNTER → 2018-11-15 | Outpatient (REF) ==
[2018-11-15 11:41] LABS: INR 1.38; PROTHROMBIN TIME 17.2 SECONDS (12.1-14.4)
== END ==
PROVIDERS: ATTEND Family Medicine
DX: I48.91 Unspecified atrial fibrillation (principal)

== ENCOUNTER → 2018-11-19 | Outpatient (REF) ==
[2018-11-19 10:54] LABS: INR 1.6; PROTHROMBIN TIME 19.3 SECONDS (12.1-14.4)
== END ==
PROVIDERS: ATTEND Family Medicine
DX: I48.91 Unspecified atrial fibrillation (principal)

== ENCOUNTER → 2018-11-21 | Outpatient (REF) ==
[2018-11-21 10:12] LABS: INR 1.83; PROTHROMBIN TIME 21.5 SECONDS (12.1-14.4)
== END ==
PROVIDERS: ATTEND Family Medicine
DX: I48.91 Unspecified atrial fibrillation (principal)

== ENCOUNTER → 2018-11-26 | Outpatient (REF) ==
[2018-11-26 08:31] LABS: INR 1.83; PROTHROMBIN TIME 21.5 SECONDS (12.1-14.4)
== END ==
PROVIDERS: ATTEND Family Medicine
DX: I48.91 Unspecified atrial fibrillation (principal)

== ENCOUNTER → 2018-12-03 | Outpatient (REF) ==
[2018-12-03 09:04] LABS: INR 1.82; PROTHROMBIN TIME 21.4 SECONDS (12.1-14.4)
== END ==
PROVIDERS: ATTEND Family Medicine
DX: I48.91 Unspecified atrial fibrillation (principal)

== ENCOUNTER → 2018-12-10 | Outpatient (REF) ==
[2018-12-10 10:19] LABS: HEMATOCRIT 36.9 % (42.0-52.0); HEMOGLOBIN 11.1 g/dl (13.5-17.5); MEAN CORPUSCULAR HEMOGLOBIN 26.2 pg (27.0-33.0); MEAN CORPUSCULAR HGB CONC 30.1 g/dl (32.0-36.5); PLATELET COUNT, AUTOMATED 166 10^3/uL (150-450); RED BLOOD COUNT 4.24 10^6/uL (4.30-6.10); WHITE BLOOD COUNT 7.1 10^3/uL (4.0-10.0)
[2018-12-10 10:26] LABS: INR 2.02; PROTHROMBIN TIME 23.2 SECONDS (12.1-14.4)
[2018-12-10 10:42] LABS: BLOOD UREA NITROGEN 20 MG/DL (7-18); CARBON DIOXIDE LEVEL 27 MEQ/L (21-32); CHLORIDE LEVEL 106 MEQ/L (98-107); CREATININE FOR GFR 0.93 MG/DL (0.70-1.30); GLOMERULAR FILTRATION RATE > 60.0 (>42); GLUCOSE, FASTING 87 MG/DL (70-100); POTASSIUM SERUM 4.6 MEQ/L (3.5-5.1); SODIUM LEVEL 141 MEQ/L (136-145)
== END ==
PROVIDERS: ATTEND Family Medicine
DX: I48.91 Unspecified atrial fibrillation (principal)

== ENCOUNTER → 2018-12-17 | Outpatient (REF) ==
[2018-12-17 08:59] LABS: INR 2.13; PROTHROMBIN TIME 24.2 SECONDS (12.1-14.4)
== END ==
PROVIDERS: ATTEND Family Medicine
DX: I48.91 Unspecified atrial fibrillation (principal)

== ENCOUNTER → 2018-12-24 | Outpatient (REF) ==
[2018-12-24 10:36] LABS: INR 1.96; PROTHROMBIN TIME 22.1 SECONDS (11.8-14.0)
[2018-12-24 14:10] LABS: AMORPHOUS SEDIMENT SMALL (NEGATIVE); APPEARANCE, URINE CLOUDY (CLEAR); BACTERIA, URINE AUTO NEGATIVE (NEGATIVE); BILIRUBIN, URINE AUTO NEGATIVE (NEGATIVE); BLOOD, URINE BLOOD NEGATIVE (NEGATIVE); COLOR, URINE AMBER (YELLOW); GLUCOSE, URINE (UA) AUTO NEGATIVE (NEGATIVE); KETONE, URINE AUTO NEGATIVE (NEGATIVE); LEUKOCYTE ESTERASE, URINE AUTO 3+ (NEGATIVE); NITRITE, URINE AUTO POSITIVE (NEGATIVE); PROTEIN, URINE AUTO 2+ mg/dL (NEGATIVE); RBC, URINE AUTO 42 /HPF (0-3); SPECIFIC GRAVITY URINE AUTO 1.019 (1.002-1.035); SQUAMOUS EPITHELIAL CELL UR AU 0 /HPF (0-6); UROBILINOGEN, URINE AUTO 0.2 mg/dL (0.0-2.0); WBC, URINE AUTO TNTC /HPF (0-3)
== END ==
PROVIDERS: ATTEND Family Medicine
DX: I48.91 Unspecified atrial fibrillation (principal)

== ENCOUNTER → 2018-12-25 | Outpatient (REF) | payer MEDICAID, MEDICARE, OTHER ==
[2018-12-25 09:56] LABS: HEMATOCRIT 33.7 % (42.0-52.0); HEMOGLOBIN 10.1 g/dl (13.5-17.5); MEAN CORPUSCULAR HEMOGLOBIN 25.9 pg (27.0-33.0); MEAN CORPUSCULAR VOLUME 86.4 fl (80.0-96.0); PLATELET COUNT, AUTOMATED 226 10^3/uL (150-450)
[2018-12-25 10:21] LABS: BLOOD UREA NITROGEN 18 MG/DL (7-18); CALCIUM LEVEL 8.6 MG/DL (8.8-10.2); CARBON DIOXIDE LEVEL 27 MEQ/L (21-32); CHLORIDE LEVEL 107 MEQ/L (98-107); CREATININE FOR GFR 0.84 MG/DL (0.70-1.30); GLOMERULAR FILTRATION RATE > 60.0 (>42); GLUCOSE, FASTING 65 MG/DL (70-100); POTASSIUM SERUM 4.4 MEQ/L (3.5-5.1); SODIUM LEVEL 141 MEQ/L (136-145)
== END ==
PROVIDERS: ATTEND Family Medicine
DX: W19.XXXA Unspecified fall, initial encounter (principal); Y92.89 Other specified places as the place of occurrence of the external cause; Y93.89 Activity, other specified; Y99.8 Other external cause status

== ENCOUNTER → 2018-12-31 | Outpatient (REF) ==
[2018-12-31 09:08] LABS: HEMATOCRIT 34.6 % (42.0-52.0); HEMOGLOBIN 10.5 g/dl (13.5-17.5); MEAN CORPUSCULAR HEMOGLOBIN 25.9 pg (27.0-33.0); MEAN CORPUSCULAR HGB CONC 30.3 g/dl (32.0-36.5); MEAN CORPUSCULAR VOLUME 85.2 fl (80.0-96.0); PLATELET COUNT, AUTOMATED 218 10^3/uL (150-450); RED BLOOD COUNT 4.06 10^6/uL (4.30-6.10); WHITE BLOOD COUNT 6.4 10^3/uL (4.0-10.0)
[2018-12-31 09:26] LABS: BLOOD UREA NITROGEN 17 MG/DL (7-18); CALCIUM LEVEL 8.5 MG/DL (8.8-10.2); CARBON DIOXIDE LEVEL 30 MEQ/L (21-32); CHLORIDE LEVEL 104 MEQ/L (98-107); CREATININE FOR GFR 0.98 MG/DL (0.70-1.30); GLOMERULAR FILTRATION RATE > 60.0 (>42); GLUCOSE, FASTING 116 MG/DL (70-100); POTASSIUM SERUM 4.3 MEQ/L (3.5-5.1); SODIUM LEVEL 139 MEQ/L (136-145)
== END ==
PROVIDERS: ATTEND Family Medicine
DX: I48.91 Unspecified atrial fibrillation (principal)

== ENCOUNTER → 2019-01-07 | Outpatient (REF) ==
[2019-01-07 09:41] LABS: INR 2.02; PROTHROMBIN TIME 22.6 SECONDS (11.8-14.0)
== END ==
PROVIDERS: ATTEND Family Medicine
DX: I48.91 Unspecified atrial fibrillation (principal)

== ENCOUNTER → 2019-01-14 | Outpatient (REF) ==
[~2019-01-14] MED LIST changes: +CYAN100049 PO; -VITA10002 PO
[2019-01-14 09:15] LABS: INR 3.12; PROTHROMBIN TIME 32.1 SECONDS (11.8-14.0)
== END ==
PROVIDERS: ATTEND Family Medicine
DX: I48.91 Unspecified atrial fibrillation (principal)

== ENCOUNTER → 2019-01-16 | Outpatient (REF) ==
[~2019-01-16] MED LIST changes: -ARTI99.0 OU; +ARTIDRO2 OU; +ARTISOL2 OU; +ATAC4TAB2 PO; +BIOTLIQ9 PO; +BISA10SU20 PR; +CEPH500C PO; +LEVA1TAB2 PO; +MOM30SS PO; -OXYB10TA PO; +OXYB10TA23 PO; +THERTAB12 PO; +WARF-20 PO; +WARF-22 PO
[2019-01-16 10:09] LABS: INR 2.2; PROTHROMBIN TIME 24.2 SECONDS (11.8-14.0)
== END ==
PROVIDERS: ATTEND Family Medicine
DX: I48.91 Unspecified atrial fibrillation (principal)

== ENCOUNTER → 2019-01-19 | Outpatient (REF) ==
[~2019-01-19] MED LIST changes: +ARTI99.0 OU; -ARTIDRO2 OU; -ARTISOL2 OU; -ATAC4TAB2 PO; -BIOTLIQ9 PO; -BISA10SU20 PR; -CEPH500C PO; -LEVA1TAB2 PO; -MOM30SS PO; +OXYB10TA PO; -OXYB10TA23 PO; -THERTAB12 PO; -WARF-20 PO; -WARF-22 PO
[2019-01-19 10:22] LABS: INR 2.88; PROTHROMBIN TIME 30.1 SECONDS (11.8-14.0)
== END ==
PROVIDERS: ATTEND Family Medicine
DX: I48.91 Unspecified atrial fibrillation (principal)

== ENCOUNTER → 2019-01-21 | Outpatient (REF) ==
[2019-01-21 10:00] LABS: INR 2.33; PROTHROMBIN TIME 25.4 SECONDS (11.8-14.0)
== END ==
PROVIDERS: ATTEND Family Medicine
DX: I48.91 Unspecified atrial fibrillation (principal)

== ENCOUNTER → 2019-01-26 | Outpatient (REF) ==
[~2019-01-26] MED LIST changes: -ARTI99.0 OU; +ARTIDRO2 OU; +ARTISOL2 OU; +ATAC4TAB2 PO; +BIOTLIQ9 PO; +BISA10SU20 PR; +CEPH500C PO; +LEVA1TAB2 PO; +MOM30SS PO; -OXYB10TA PO; +OXYB10TA23 PO; +THERTAB12 PO; +WARF-20 PO; +WARF-22 PO
[2019-01-26 14:12] LABS: INR 2.71; PROTHROMBIN TIME 28.6 SECONDS (11.8-14.0)
== END ==
PROVIDERS: ATTEND Family Medicine
DX: I48.91 Unspecified atrial fibrillation (principal)

== ENCOUNTER → 2019-01-28 | Outpatient (REF) ==
[~2019-01-28] MED LIST changes: +ARTI99.0 OU; -ARTIDRO2 OU; -ARTISOL2 OU; -ATAC4TAB2 PO; -BIOTLIQ9 PO; -BISA10SU20 PR; -CEPH500C PO; -LEVA1TAB2 PO; -MOM30SS PO; +OXYB10TA PO; -OXYB10TA23 PO; -THERTAB12 PO; -WARF-20 PO; -WARF-22 PO
[2019-01-28 09:17] LABS: HEMATOCRIT 35.7 % (42.0-52.0); HEMOGLOBIN 10.7 g/dl (13.5-17.5); MEAN CORPUSCULAR HEMOGLOBIN 25.5 pg (27.0-33.0); MEAN CORPUSCULAR VOLUME 85.2 fl (80.0-96.0); PLATELET COUNT, AUTOMATED 160 10^3/uL (150-450); RED BLOOD COUNT 4.19 10^6/uL (4.30-6.10); WHITE BLOOD COUNT 6.2 10^3/uL (4.0-10.0)
[2019-01-28 09:29] LABS: INR 2.35; PROTHROMBIN TIME 25.5 SECONDS (11.8-14.0)
[2019-01-28 09:43] LABS: BLOOD UREA NITROGEN 21 MG/DL (7-18); CALCIUM LEVEL 8.6 MG/DL (8.8-10.2); CARBON DIOXIDE LEVEL 25 MEQ/L (21-32); CHLORIDE LEVEL 107 MEQ/L (98-107); CREATININE FOR GFR 0.99 MG/DL (0.70-1.30); GLOMERULAR FILTRATION RATE > 60.0 (>42); GLUCOSE, FASTING 112 MG/DL (70-100); POTASSIUM SERUM 4.4 MEQ/L (3.5-5.1); SODIUM LEVEL 140 MEQ/L (136-145)
== END ==
PROVIDERS: ATTEND Family Medicine
DX: I48.91 Unspecified atrial fibrillation (principal)

== ENCOUNTER → 2019-02-04 | Outpatient (REF) ==
[2019-02-04 14:05] LABS: INR 2.44; PROTHROMBIN TIME 26.3 SECONDS (11.8-14.0)
== END ==
PROVIDERS: ATTEND Family Medicine
DX: I48.91 Unspecified atrial fibrillation (principal)

== ENCOUNTER → 2019-02-11 | Outpatient (REF) ==
[~2019-02-11] MED LIST changes: -ARTI99.0 OU; +ARTIDRO2 OU; +ARTISOL2 OU; +ATAC4TAB2 PO; +BIOTLIQ9 PO; +BISA10SU20 PR; +CEPH500C PO; -OXYB10TA PO; +OXYB10TA2 PO; +THERTAB12 PO; +WARF-20 PO
[2019-02-11 08:36] LABS: INR 3.38; PROTHROMBIN TIME 34.2 SECONDS (11.8-14.0)
== END ==
PROVIDERS: ATTEND Family Medicine
DX: I48.91 Unspecified atrial fibrillation (principal)

== ENCOUNTER → 2019-02-12 | Outpatient (REF) ==
--- NOTE | 2019-02-12 15:54 | REP ---
LUMBAR SPINE, FIVE VIEWS: HISTORY: Back pain. COMPARISON: 10/15/2018. There is no acute fracture or subluxation. The lumbar intervertebral discs are decreased in height. Vacuum phenomenon is present at the L3-4 level. These findings are consistent with disc degeneration. Osteophytes are present throughout the lumbar spine. There is narrowing of the L4-5 and L5-S1 facet joints. IMPRESSION: Degenerative change as described above. Electronically Signed by Kali Pettit MD 02/12/2019 04:39 P
--- NOTE | 2019-02-12 16:02 | REP ---
RIGHT HIP, TWO VIEWS: HISTORY: Pain. COMPARISON: 10/15/2018. There is no acute fracture or dislocation. There is minimal narrowing of the joint space. IMPRESSION: There is no acute fracture or dislocation. Electronically Signed by Kali Pettit MD 02/12/2019 04:39 P
== END ==
PROVIDERS: ATTEND Family Medicine
DX: M25.50 Pain in unspecified joint (principal)

== ENCOUNTER → 2019-02-12 | Outpatient (REF) ==
[2019-02-12 15:31] LABS: INR 2.95; PROTHROMBIN TIME 30.6 SECONDS (11.8-14.0)
== END ==
PROVIDERS: ATTEND Family Medicine
DX: I48.91 Unspecified atrial fibrillation (principal)

== ENCOUNTER 2019-02-13 13:41 | Inpatient (IN) | payer MEDICARE, MEDICAID ==
[~2019-02-13] VITALS: Ht 177.8 cm; Wt 129.5 kg
[~2019-02-13 13:41] MED LIST changes: -ARTISOL2 OU; -ATAC4TAB2 PO; -BIOTLIQ9 PO; -BISA10SU20 PR; -CEPH500C PO; -THERTAB12 PO; -WARF-20 PO
--- NOTE | 2019-02-13 14:36 | REP ---
CT HEAD WITHOUT CONTRAST: HISTORY: Fall. COMPARISON: 10/15/2018. Areas of decreased attentuation are present in the periventricular white matter. This represents small vessel ischemic disease. There is no intraparenchymal hemorrhage, mass, or midline shift. The ventricular system and cortical sulci are dilated consistent with moderate volume loss. There is no extracerebral collection. There is no fracture. The visualized sinuses are clear. Soft tissue swelling is present overlying the right frontal bone and orbit. IMPRESSION: 1. Small vessel ischemic disease. 2. Moderate volume loss. Electronically Signed by Kali Pettit MD 02/13/2019 02:42 P
[2019-02-13 14:59] LABS: BASO % 0.4 % (0.0-1.0); EOS # 0.1 10^3/uL (0.0-0.50); HEMATOCRIT 30.9 % (42.0-52.0); HEMOGLOBIN 9.5 g/dl (13.5-17.5); LYMPH # 1.3 10^3/uL (1.5-4.5); LYMPH % 12.7 % (24.0-44.0); MEAN CORPUSCULAR HEMOGLOBIN 26.2 pg (27.0-33.0); MEAN CORPUSCULAR HGB CONC 30.7 g/dl (32.0-36.5); MEAN CORPUSCULAR VOLUME 85.1 fl (80.0-96.0); MONO # 1.2 10^3/uL (0.0-0.8); MONO % 11.6 % (0.0-5.0); NEUTROPHILS # 7.8 10^3/uL (1.8-7.7); NEUTROPHILS % 73.9 % (36.0-66.0); PLATELET COUNT, AUTOMATED 180 10^3/uL (150-450); RED BLOOD COUNT 3.63 10^6/uL (4.30-6.10); WHITE BLOOD COUNT 10.5 10^3/uL (4.0-10.0)
[2019-02-13 15:14] LABS: PARTIAL THROMBOPLASTIN TIME 56.9 SECONDS (25.0-38.4)
[2019-02-13 15:17] LABS: INR 2.24; PROTHROMBIN TIME 24.6 SECONDS (11.8-14.0)
[2019-02-13 15:19] LABS: BLOOD UREA NITROGEN 23 MG/DL (7-18); CALCIUM LEVEL 8.6 MG/DL (8.8-10.2); CARBON DIOXIDE LEVEL 26 MEQ/L (21-32); CHLORIDE LEVEL 107 MEQ/L (98-107); CK-MB VALUE MASS 1.2 NG/ML (<3.6); CPK CREATINE PHOSPHOKINASE 64 U/L (39-308); CREATININE FOR GFR 1.51 MG/DL (0.70-1.30); FREE T4 0.99 NG/DL (0.76-1.46); GLOMERULAR FILTRATION RATE 47.9 (>42); GLUCOSE, FASTING 135 MG/DL (70-100); MAGNESIUM LEVEL 1.9 MG/DL (1.8-2.4); MB/CK RELATIVE INDEX 1.88 (< OR =4); POTASSIUM SERUM 4.7 MEQ/L (3.5-5.1); SODIUM LEVEL 139 MEQ/L (136-145); TROPONIN I < 0.02 NG/ML (< 0.10)
[2019-02-13] MEDS ORDERED: WARF-20 PO (15:26)
[2019-02-13] MEDS ORDERED: BISA10SU20 PR (15:29)
[2019-02-13] MEDS ORDERED: ATAC4TAB2 PO (15:29)
[2019-02-13] MEDS ORDERED: ARTISOL2 OU (15:32)
[2019-02-13] MEDS ORDERED: THERTAB12 PO (15:34)
--- NOTE | 2019-02-13 15:39 | REP ---
MAXILLOFACIAL CT WITHOUT CONTRAST: HISTORY: Trauma. COMPARISON: 10/15/2018 Minimal mucosal thickening is present in the left ethmoid sinus. A retention cyst is present in the left maxillary sinus. The remaining sinuses are clear. The osteomeatal units are patent. The middle and inferior nasal turbinates are partially paradoxical. There is mild deviation of the nasal septum to the left. A spur is present arising from the right side of the nasal septum. The cribriform plate, medial magaña of the orbits and optic canals are intact. The carotid canals form a segment of the posterolateral magaña of the sphenoid sinus. There is no fracture. Soft tissue swelling is present over the right frontal bone and orbit. IMPRESSION: 1. Sinus mucosal thickening as described above. 2. Left maxillary sinus retention cyst. Unreviewed
--- NOTE | 2019-02-13 15:51 | REP ---
CT CERVICAL SPINE WITHOUT CONTRAST: HISTORY: Trauma. COMPARISON: 04/21/2018. The cervical spine is visualized from C1 to the C6-7 level. There is no acute fracture. Disc bulges with associated osteophyte formation are present at the C2-3 through C6-7 levels. There are 3 mm of anterior subluxation of C3 on 4 and C4 on 5. There is minimal to mild narrowing of the spinal canal. Uncinate process and/or facet hypertrophy are present at the C2-3 through C6-7 levels. These findings produce minimal to severe narrowing of the neural foramina. The C2-3 through C6-7 intervertebral discs are decreased in height consistent with disc degeneration. IMPRESSION: 1. There is no acute fracture. 2. There is cervical spondylosis at the C2-3 through C6-7 levels. Unreviewed
[2019-02-13] MEDS ORDERED: NS 1,000 ML IV ONE ×2 (16:00→19:15)
--- NOTE | 2019-02-13 16:00 | REP ---
CHEST, SINGLE VIEW: There is no evidence of acute infiltrate. No pleural effusion is seen. The heart is normal in size. The mediastinal silhouette is unremarkable. The visualized osseous structures are intact. There is calcification and tortuosity of the thoracic aorta. IMPRESSION: No acute pulmonary disease. Electronically Signed by Félix De La Fuente MD 02/16/2019 11:18 A
[2019-02-13] MEDS ORDERED: BIOTLIQ9 PO (16:08)
[2019-02-13] MEDS ORDERED: cefTRIAXone SOD 1 GM in D5W MINI-BAG PLUS 50 ML IV ONE (19:15)
--- NOTE | 2019-02-13 19:16 | HPEPDOC ---
[facility] Medical History & Physical Date of Admission Feb 13, 2019 Date of Service: Feb 13, 2019 Primary Care Physician: A Other Provider PCP Pablo Carrion Attending Physician: MINERVA BRAXTON MD History and Physical Time of service 8:40 PM CHIEF COMPLAINT:fall HISTORY OF PRESENT ILLNESS: Mr. Carrion is a 78-year-old male who presented to the hospital after having an unwitnessed fall with loss of consciousness. Just prior to the fall he was sitting on his bed eating lunch and the next thing he knew he was lying on the floor in a pool of blood. He denied having chest pain, dizziness, dyspnea, headache, blurry vision or any other prodromal symptoms. He also denied recently having nausea, vomiting, diarrhea, or any other complaints prior to the fall. He reports having a history of falls and slid onto his knees earlier on in the day as he tried to turn to reach his call button. In the ED his blood pressure was 118/59, while sitting and decreased to 104/59, while standing. The UA was positive and the patient was started on ceftriaxone & IV fluids. REVIEW OF SYSTEMS: Review of systems negative except as listed in HPI PAST MEDICAL SURGICAL HISTORY: 1 CVA in 2007 with no residual deficits 2 Duodenal ulcer, 3 Depression, 4 Chronic coronary artery disease, 5 Chronic hypertension, 6 Chronic atrial fibrillation on Coumadin, 7 Unsteady gait/ambulates with a walker, 8 Obstructive sleep apnea on home continuous positive airway pressure (CPAP) and chronic hypoxia on 2 liters of oxygen 9 IDDM 10 Adenoidectomy. 11. Status post Appendectomy. 12. Status post Tonsillectomy. SOCIAL HISTORY: Quit smoking 10 years ago Occasionally drinks a beer No illicit drugs. Lives at [facility] living. FAMILY HISTORY: Noncontributory ALLERGIES: Please see below. HOME MEDICATIONS: Please see below. PHYSICAL EXAMINATION: VITAL SIGNS: Temperature 97.1, pulse 82, respiratory rate 20, blood pressure 165/78, pulse oximetry 98% on 2 L via nasal cannula GENERAL APPEARANCE: Obese, well-developed, not in apparent distress HEENT: The patient has a hematoma extending from the right side of the forehead extending to the right periorbital space and down to the nose, the nasal cannulas are in place, mucous members are moist and pink, he is wearing glasses CARDIOVASCULAR: The heart has a regular rate and rhythm, there are no murmurs, rubs or gallops LUNGS: Lungs are clear to auscultation bilaterally ABDOMEN: Is obese, bowel sounds are positive, the abdomen is soft and nontender on palpation MUSCULOSKELETAL: Range of motion is intact in both upper extremities and left lower extremity, the patient is unable to lift his right lower extremity because of weakness INTEGUMENT: Generalized pallor NEUROLOGICAL: Regular 2-12 grossly intact, speech is not dysarthric PSYCHIATRIC: The patient is alert and oriented to person, place and time, able to understand and follow commands LABORATORY DATA: CBC is remarkable for a WBC count of 10.5, hemoglobin of 9.5, with MCV of 85. Chemistry is remarkable for a BUN of 23, creatinine of 1.5, and glucose 135 UA was positive for 2+ protein, 2+ blood, 3+ leukocyte esterase, and WBCs are too numerous to count IMAGING: CT of the maxillofacial sinuses showed sinus mucosal thickening in the left ma xillary sinus retention cyst. CT of the head showed small vessel ischemic disease and moderate volume, loss and soft tissue swelling overlying the right frontal bone and orbit Chest x-ray was unremarkable CT of the cervical spine was negative for an acute process and showed cervical spondylosis at C2-C3 and C6 to C7 levels. X-rays of the hip and pelvis were unremarkable MICROBIOLOGY: Please see below. ASSESSMENT: Mr. Carrion is a 78-year-old male with a past medical history of CVA without residual deficits, depression, chronic coronary artery disease, chronic hypertension, chronic, chronic atrial fibrillation, obstructive sleep apnea, and unsteady gait who will be admitted for evaluation of after having a syncopal episode. . PLAN: 1. Syncope Cause to be determined differential includes dehydration in the setting of UTI? vs CVA/TIA (risk factor a.fib) vs symptomatic anemia ? His blood pressure has been labile Trop and CT of the head were remarkable Echo 2018 showed grade 1 DD & and mild aortic valve sclerosis Previous MRI of brain in 2018 showed old lacunar infarcts and small vessel ischemic dz Plan: admit to PCU / telemetry / IVF / f/u MRI head & carotid US / fall prec autions 2. Normocytic Hypochromic Anemia The patient appears pale Hemoglobin is 9.5 today, down from his baseline of around 10.7 Plan: f/u repeat CBC, iron panel w ferritin, B12, thiamine and stool occult /will transfuse if hemoglobin drops below 7 3. RUSS 2/2 prerenal azotemia vs postrenal azotemia (BPH) The creatinine is 1.51 today, which is higher than his baseline of 0.99 Plan: f/u ulytes for FENa, BMP and renal US / IVF 4. UTI UA was positive and WBC # is slightly elevated Received ceftriaxone in the ED Plan: f/u Ucx / switch to Levofloxacin tomorrow (today is abx day #1) 5. Facial Hematoma 2/2 facial trauma Plan: will ask nursing staff to proved ice packs / Acetaminophen PRN 6.IDDM Last A1c was 6.0 in September 2018 Plan: f/u accuchecks & A1C / hypoglycemia protocol / resume Lantus 20 units QHS + sliding scale / hold oral anti-glycemics 7.History of CVA in 2007 with no residual deficits Plan: Continue with home meds 8. Depression Plan: Continue with home meds 9 Chronic coronary artery disease Plan: Continue with home meds 10 Chronic hypertension Plan: Continue with home meds 11 Chronic atrial fibrillation INR 2.2 Plan: Continue with home meds except for holding Coumadin because of facial hematoma and drop in Hg 12. Unsteady gait/ambulates with a walker Plan: PT eval 13. 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 DVT px w SCDs (warfarin on hold) Disposition: Back to long-term pending clinical course Vital Signs Vital Signs Date Time Temp Pulse Resp B/P (MAP) Pulse Ox O2 Delivery O2 Flow Rate FiO2 02/13/19 16:13 82 161/76 (104) 97 144/73 (96) 102 135/63 (87) 02/13/19 15:31 97 02/13/19 14:41 18 Nasal Cannula 2.0 02/13/19 14:05 99.3 Laboratory Data Labs 24H Laboratory Tests 2 02/13/19 14:28: Immature Granulocyte % (Auto) 0.4, White Blood Count 10.5H, Red Blood Count 3.63L, Hemoglobin 9.5L, Hematocrit 30.9L, Mean Corpuscular Volume 85.1, Mean Corpuscular Hemoglobin 26.2L, Mean Corpuscular Hemoglobin Concent 30.7L, Red Cell Distribution Width 18.1H, Platelet Count 180, Neutrophils (%) (Auto) 73.9H, Lymphocytes (%) (Auto) 12.7L, Monocytes (%) (Auto) 11.6H, Eosinophils (%) (Auto) 1.0, Basophils (%) (Auto) 0.4, Neutrophils # (Auto) 7.8H, Lymphocytes # (Auto) 1.3L, Monocytes # (Auto) 1.2H, Eosinophils # (Auto) 0.1, Basophils # (Auto) 0.0, Nucleated Red Blood Cells % (auto) 0.0, Prothrombin Time 24.6H, Prothromb Time International Ratio 2.24, Activated Partial Thromboplast Time 56.9H, Anion Gap 6L, Glomerular Filtration Rate 47.9, Blood Urea Nitrogen 23H, Creatinine 1.51H, Sodium Level 139, Potassium Level 4.7, Chloride Level 107, Carbon Dioxide Level 26, Calcium Level 8.6L, Total Creatine Kinase 64, Magnesium Level 1.9, Creatine Kinase MB 1.2, Creatine Kinase MB Relative Index 1.88, Troponin I < 0.02, Thyroid Stimulating Hormone (TSH) 2.230, Free Thyroxine 0.99 02/13/19 17:17: Urine Color YELLOW, Urine Appearance TURBIDH, Urine pH 5.0, Urine Specific [place] 1.015, Urine Protein 2+H, Urine Glucose (UA) NEGATIVE, Urine Ketones TRACEH, Urine Blood 2+H, Urine Nitrite NEGATIVE, Urine Bilirubin NEGATIVE, Urine Urobilinogen 0.2, Urine Leukocyte Esterase 3+H, Urine WBC (Auto) TNTCH, Urine RBC (Auto) 51H, Urine Hyaline Casts (Auto) 0, Urine Bacteria (Auto) 3+H, Urine Squamous Epithelial Cells 0, Urine Sperm (Auto) CBC/BMP Laboratory Tests 02/13/19 14:28 Red Blood Count 3.63 L, Mean Corpuscular Volume 85.1, Mean Corpuscular Hemoglobin 26.2 L, Mean Corpuscular Hemoglobin Concent 30.7 L, Red Cell Distribution Width 18.1 H, Neutrophils (%) (Auto) 73.9 H, Lymphocytes (%) (Auto) 12.7 L, Monocytes (%) (Auto) 11.6 H, Eosinophils (%) (Auto) 1.0, Basophils (%) (Auto) 0.4, Neutrophils # (Auto) 7.8 H, Lymphocytes # (Auto) 1.3 L, Monocytes # (Auto) 1.2 H, Eosinophils # (Auto) 0.1, Basophils # (Auto) 0.0, Calcium Level 8 .6 L, Total Creatine Kinase 64 Microbiology Microbiology 02/13/19 Blood Culture, Received Pending 02/13/19 Blood Culture, Received Pending 02/13/19 Urine Culture, Received Pending Home Medications Scheduled Atorvastatin Calcium (Atorvastatin Calcium) 40 Mg Tab, 40 MG PO QHS 1999 Candesartan Cilexetil (Atacand) 4 Mg Tablet, 4 MG PO DAILY Cholecalciferol (Vitamin D3) (Vitamin D3) 2,000 Unit Cap, 2,000 UNIT PO DAILY Cyanocobalamin (Vitamin B-12) (Vitamin B-12) 1,000 Mcg Tab, 1,000 MCG PO DAILY Finasteride (Finasteride) 5 Mg Tab, 5 MG PO DAILY Gabapentin (Gabapentin) 300 Mg Cap, 300 MG PO TID 0800, 1200, 1999 Insulin Glargine (Lantus) 1 Units/0.01 Ml Susp, 20 UNITS SC QHS Magnesium Oxide (Magnesium Oxide) 400 Mg Tab, 400 MG PO DAILY Metformin HCl (Metformin HCl) 1,000 Mg Tab, 1,000 MG PO BID GIVEN AT 0800 AND 1999 Multivit,Tx with Iron,Minerals (Therems-M) 1 Each Tablet, 1 TAB PO DAILY Pantoprazole Sodium (Pantoprazole Sodium) 40 Mg Tab, 40 MG PO DAILY Tamsulosin HCl (Flomax) 0.4 Mg Cap, 0.4 MG PO DAILY Venlafaxine HCl (Venlafaxine HCl ER) 75 Mg Cap, 75 MG PO BID 0800, 1999 Vit C/E/Zn/Coppr/Lutein/Zeaxan (Preservision Areds 2 Softgel) 1 Each Capsule, 1 EACH PO DAILY 0800 Warfarin Sodium (Coumadin) 5 Mg Tab, 5 MG PO 6XWK 9MG TOTAL SUN, TUES, WED, FRI, AND SAT Warfarin Sodium (Warfarin Sodium) 4 Mg Tablet, 4 MG PO 6XWK 9MG TOTAL SUN,TUES,WED,THURS,FRI,SAT Scheduled PRN Acetaminophen (Acetaminophen) 500 Mg Tab, 500 MG PO QID PRN for PAIN Bisacodyl (Bisacodyl) 10 Mg Supp.rect, 10 MG GA DAILY PRN for BOWEL CARE/CONSTIPATION Dextran 70/Hypromellose (Artificial Tears Eye Drops) 15 Ml Drops, 1 DROP OU QID PRN for DRY EYES 0800, 1200, 1600, 1999 Magnesium Hydroxide (Milk of Magnesia) 1 Malinda Malinda, 30 ML PO DAILY PRN for CONSTIPATION Nitroglycerin (Nitrostat) 0.4 Mg Subl, 0.4 MG SL NITRO PRN for CHEST PAIN Nystatin (Nystatin Powder) 100,000 Unit/Gm Pow, 1 DOSE TOP TID PRN for RASH APPLY TO GROIN AREA Oxymetazoline HCl (Afrin) 15 Ml Mist, 0.05 % NA QID PRN for NASAL DRYNESS Polyvinyl Alcohol (Artificial Tears) 1.4 % Vashti, 1 DROP OU QID PRN for DRY EYES Saliva Substitute Combo No.9 (Biotene) 237 Ml Mouthwash, 2 SPRAYS PO QID PRN for DRY MOUTH Sodium Chloride ([place]) 0.65 % Spr, 1 SPRAY NA Q2H PRN for NASAL CONGESTION Zinc Oxide (Zinc Oxide) 57 Gm Oint...g., 40 % TOP BID PRN for RASH/ITCHING [Biotene] , 2 SPRAY PO QID PRN for DRY MOUTH 0800, 1200, 1600, 1999 Allergies Coded Allergies: glucosamine (Verified Allergy, Unknown, 10/12/18) heparin (Verified Allergy, Unknown, 10/12/18) meloxicam (Verified Allergy, Unknown, 10/12/18) tetracycline (Verified Allergy, Unknown, 10/12/18) A-FIB/CHADSVASC A-FIB History Current/History of A-Fib/PAF?: Yes Current PO Anticoag Therapy: Yes Age/Risk Factor Scoring CHADSVASC: CHADSVASC Response (Comments) Value Age Risk Factor Age >/= 75 years old 2 Gender Risk Factor Male 0 Hx of CHF Yes 1 Hx of HTN Yes 1 Hx of Stroke/TIA/or VTE Yes 2 Hx of Diabetes Yes 1 Hx of Vascular Disease No 0 Total 7 Treatment Treatment ordered: Holding Other Reason Anticoagulant not given: Other (facial hematoma) Other reason anticoagulant not: facial hematoma and acute anemia MINERVA BRAXTON MD Feb 13, 2019 19:16
[2019-02-13] MEDS: NS 1,000 ML IV SCH (19:33)
--- NOTE | 2019-02-13 20:14 | REP ---
PELVIS AND RIGHT HIP: AP view of the pelvis and AP and frogleg views of the right hip are performed. There is no evidence of acute fracture or dislocation. There are mild degenerative changes at each hip joint, with mild joint space narrowing, subchondral sclerosis, and spurring. IMPRESSION: No acute fracture or dislocation. Electronically Signed by Félix De La Fuente MD 02/16/2019 11:32 A
[2019-02-13 20:30] VITALS: BP 165/78
--- NOTE | 2019-02-13 20:32 | REPVR ---
EXAM: US Retroperitoneal Limited, Kidneys EXAM DATE/TIME: 02/13/2019 7:54 PM CLINICAL HISTORY: 78 years old, male; Abnormal findings; Abnormal lab test; Abnormal function test of other organs/systems; Additional info: Franco TECHNIQUE: Imaging protocol: Real-time ultrasound of the retroperitoneum with image documentation. Examination was focused on the kidneys. COMPARISON: CT ABD PELVIS W/O CONTRAST 07/09/2017 11:58 PM FINDINGS: Right kidney: Right kidney measures 11 x 5.5 x 6.4 cm. Left kidney: Left kidney measures 12.5 x 5.5 x 6.5 cm. Bladder: Visualized bladder within normal limits. IMPRESSION: Unremarkable study. Electronically signed by: Shiva Adam On 02/13/2019 20:32:14 PM
[2019-02-13] MEDS ORDERED: LEVEMIR (INSULIN DETEMIR) 1 UNITS/0.01ML SC SCH (21:00)
[2019-02-13] MEDS ORDERED: NYSTATIN 100,000 UNITS/GM TOPICAL PWD 15 GM TOP PRN (22:15)
[2019-02-13] MEDS ORDERED: POLYVINYL ALCOHOL OPHTH SOLN 15 ML(LIQUITEARS) OU PRN (22:15)
[2019-02-13] MEDS ORDERED: DEXTROSE 50% 50 ML SYRINGE IV PRN (22:15)
[2019-02-13] MEDS ORDERED: NITROGLYCERIN 0.4 MG SUBL TABLET SL PRN (22:15)
[2019-02-13] MEDS: ATORVASTATIN 20 MG TAB PO SCH (22:54)
[2019-02-13] MEDS: GABAPENTIN 300 MG CAP PO SCH (22:54)
[2019-02-14 06:15] LABS: HEMATOCRIT 29.5 % (42.0-52.0); HEMOGLOBIN 9.1 g/dl (13.5-17.5); MEAN CORPUSCULAR HEMOGLOBIN 25.5 pg (27.0-33.0); MEAN CORPUSCULAR HGB CONC 30.8 g/dl (32.0-36.5); MEAN CORPUSCULAR VOLUME 82.6 fl (80.0-96.0); PLATELET COUNT, AUTOMATED 154 10^3/uL (150-450); RED BLOOD COUNT 3.57 10^6/uL (4.30-6.10); WHITE BLOOD COUNT 7.6 10^3/uL (4.0-10.0)
[2019-02-14 06:27] LABS: INR 2.2; PROTHROMBIN TIME 24.2 SECONDS (11.8-14.0)
[2019-02-14 06:33] LABS: HEMOGLOBIN A1c 6.5 %
[2019-02-14] MEDS: NS 1,000 ML IV SCH (06:39)
[2019-02-14 06:50] LABS: BLOOD UREA NITROGEN 20 MG/DL (7-18); CALCIUM LEVEL 8.3 MG/DL (8.8-10.2); CARBON DIOXIDE LEVEL 27 MEQ/L (21-32); CHLORIDE LEVEL 111 MEQ/L (98-107); FERRITIN 80 NG/ML (26-388); GLOMERULAR FILTRATION RATE > 60.0 (>42); GLUCOSE, FASTING 99 MG/DL (70-100); IRON (FE) 17 UG/DL (65-175); PERCENT SATURATION 5.8 % (19.7-50.0); POTASSIUM SERUM 4.3 MEQ/L (3.5-5.1); SODIUM LEVEL 142 MEQ/L (136-145); TOTAL IRON BINDING CAPACITY 294 UG/DL (250-450)
[2019-02-14] MEDS: HumaLOG INSULIN (NovoLOG) PER UNIT SC SCH ×3 (07:20→18:08)
[2019-02-14 08:00] VITALS: BP 136/92
--- NOTE | 2019-02-14 08:06 | ECGEPIP ---
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
[2019-02-14] MEDS ORDERED: LevoFLOXacin IV 500 MG in APPROPRIATE DILUENT 1 EA IV ONE (09:00)
[2019-02-14] MEDS: FINASTERIDE 5 MG TAB PO SCH (09:50)
[2019-02-14] MEDS: PANTOPRAZOLE 40MG TAB (PROTONIX) PO SCH (09:50)
[2019-02-14] MEDS: TAMSULOSIN 0.4 MG CAP PO SCH (09:50)
[2019-02-14] MEDS: GABAPENTIN 300 MG CAP PO SCH ×3 (09:50→20:42)
[2019-02-14] MEDS: CANDESARTAN 4MG TABLET PO SCH (09:50)
[2019-02-14 12:00] VITALS: BP 121/58
[2019-02-14] MEDS: ACETAMINOPHEN 500 MG TAB PO PRN ×2 (12:43→20:43)
--- NOTE | 2019-02-14 13:51 | IPNPDOC ---
Subjective Date Seen The patient was seen on 02/14/19. Subjective Chief Complaint/HPI Improved but persistent R lower leg weakness numbness Constitutional: Denies: Chills Eyes: Denies: Pain ENT: Denies: Head Aches Skin: Denies: Rash Pulmonary: Denies: Dyspnea, Cough Cardiovascular: Denies: Chest Pain, Palpitations Gastrointestinal: Denies: Nausea, Vomiting Genitourinary: Denies: Dysuria Objective Physical Examination General Exam: Positive: Alert Eye Exam: Positive: PERRLA ENT Exam: Positive: Atraumatic (R perioribital ecchymosis) Neck Exam: Negative: JVD Chest Exam: Positive: Clear to auscultation Heart Exam: Positive: Rate Normal Telemetry: Positive: No significant arrhythmia Abdomen Exam: Positive: Normal bowel sounds Extremity Exam: Negative: Edema Neuro Exam: Negative: Strength at 5/5 X4 ext, Sensation Intact (decreased LT/PP RLE below knee in L5/S1 dermatome; R EHL/FHL/gastroc 3-4/5) Assessment /Plan Problems (1) Syncope and collapse Status: Acute Problem Text: obviously suspicious of cardiac arrhythmia, no recent presyncope episodes, nor hypoglycemic sx-favor tele at least 72H +/- outpx loop remains on HD areli 4; met succ 50 QD held on admission on admission 30/07.5 c SBP 90 cw mild dehydration, resolved c IVF c UA cw UTI 02/14 TTE P 02/14 EEG P 02/14 MRI brain P 02/14/19 ~1300 syncopal episode while eating lunch in bed-NO precedent sx, awoke face down in pool of blood 02/13/19 EKG NSR 86, LAFB, PRWP/prominent S in V6 cw PDP similar to 10/12/201802/13: CT brain, CS, MF NAD CXR NAD R hip/pelvis xray s fx 02/13 TSH/FT4 2.2/1.0 03/2018 TTE: CONCLUSIONS: 1. Normal left ventricle internal dimensions. Mild concentric left ventricle hypertrophy. No regional wall motion abnormalities of the left ventricle. Normal LV systolic function. LVEF 65% by visual estimate. Grade 1 LV diastolic dysfunction. 2. Mild dilatation of the aortic root at the level of the sinus of Valsalva. 3. No pericardial effusion. 4. Mild aortic valve sclerosis of a 3-cuspid aortic valve. 5. Otherwise normal appearing echocardiogram Doppler findings. DD: Sj Quinn MD [facility] 03/24/18 1020 DT: GALE 03/25/18 0615 DS: ANTDA 03/25/18 1424 <Electronically signed by Sj Quinn MD> 03/25/18 1424 DS2: (2) Fe deficiency anemia Status: Chronic Problem Text: anemia 2 ACD/B12/Fe def baseline hgb mid 10s 02/14 9.1, %sat 6 tc Fe sucrose (3) UTI (urinary tract infection) Status: Acute Problem Text: D2 ceftriaxone (on 02/13 also received levo 500 x 1) ho BPH c retention c recurrent UTI 02/13 UCX P (UA TNTC WBC, 3+ bact/turbid) 02/13 BCX2 P (4) ASD (atrial septal defect) Status: Chronic Response to Treatment: Stable Problem Text: by 2010 DARLIN c moderate R-L shunting c ho TIA; therefore, remains on chronic VKA (NO ho AF per 10/2017 Cardiology note) 02/14 INR 2.2-HD VKA R/U 10; 7.5 ROW-on hold until MRI brain - for bleed (5) Hypertension Status: Chronic Response to Treatment: Stable Problem Text: as per syncope (6) COPD (chronic obstructive pulmonary disease) Status: Acute (7) CAD (coronary artery disease) Status: Chronic Problem Text: no angina pain nor dyspnea 02/13 T-I <0.3 (8) Hypertension Status: Chronic Problem Text: as per syncope (9) Diabetes Status: Chronic Response to Treatment: Stable Problem Text: HD glar 20, met 1000 QD 02/14 decreased det 20 to 12 BG 90-110 on det 20, SSLI 02/2019 A1C 6.5 (10) BPH (benign prostatic hyperplasia) Status: Chronic Problem Text: on HD tamsul 0.8/fin 5 (11) ROB on CPAP Status: Chronic Problem Text: continue HD CPAP Plan/VTE VTE Prophylaxis Ordered?: Yes VS, I&O, 24H, Fishbone Vital Signs/I&O Vital Signs Date Time Temp Pulse Resp B/P (MAP) Pulse Ox O2 Delivery O2 Flow Rate FiO2 02/14/19 12:00 97.8 69 16 121/58 (79) 98 2.0 02/13/19 19:29 Nasal Cannula I&O- Last 24 Hours up to 6 AM 02/14/19 06:00 Intake Total 2050 ml Output Total 875 ml Balance 1175 ml Laboratory Data 24H LABS Laboratory Tests 2 02/13/19 14:28: Immature Granulocyte % (Auto) 0.4, White Blood Count 10.5H, Red Blood Count 3.63L, Hemoglobin 9.5L, Hematocrit 30.9L, Mean Corpuscular Volume 85.1, Mean Corpuscular Hemoglobin 26.2L, Mean Corpuscular Hemoglobin Concent 30.7L, Red Cell Distribution Width 18.1H, Platelet Count 180, Neutrophils (%) (Auto) 73.9H, Lymphocytes (%) (Auto) 12.7L, Monocytes (%) (Auto) 11.6H, Eosinophils (%) (Auto) 1.0, Basophils (%) (Auto) 0.4, Neutrophils # (Auto) 7.8H, Lymphocytes # (Auto) 1.3L, Monocytes # (Auto) 1.2H, Eosinophils # (Auto) 0.1, Basophils # (Auto) 0.0, Nucleated Red Blood Cells % (auto) 0.0, Prothrombin Time 24.6H, Prothromb Time International Ratio 2.24, Activated Partial Thromboplast Time 56.9H, Anion Gap 6L, Glomerular Filtration Rate 47.9, Blood Urea Nitrogen 23H, Creatinine 1.51H, Sodium Level 139, Potassium Level 4.7, Chloride Level 107, Carbon Dioxide Level 26, Calcium Level 8.6L, Total Creatine Kinase 64, Magnesium Level 1.9, Creatine Kinase MB 1.2, Creatine Kinase MB Relative Index 1.88, Troponin I < 0.02, Thyroid Stimulating Hormone (TSH) 2.230, Free Thyroxine 0.99 02/13/19 17:17: Urine Color YELLOW, Urine Appearance TURBIDH, Urine pH 5.0, Urine Specific [place] 1.015, Urine Protein 2+H, Urine Glucose (UA) NEGATIVE, Urine Ketones TRACEH, Urine Blood 2+H, Urine Nitrite NEGATIVE, Urine Bilirubin NEGATIVE, Urine Urobilinogen 0.2, Urine Leukocyte Esterase 3+H, Urine WBC (Auto) TNTCH, Urine RBC (Auto) 51H, Urine Hyaline Casts (Auto) 0, Urine Bacteria (Auto) 3+H, Urine Squamous Epithelial Cells 0, Urine Sperm (Auto) 02/13/19 22:53: Bedside Glucose (Misc Panel) 105 02/14/19 05:57: Nucleated Red Blood Cells % (auto) 0.0, Prothrombin Time 24.2H, Prothromb Time I nternational Ratio 2.20, Anion Gap 4L, Glomerular Filtration Rate > 60.0, Blood Urea Nitrogen 20H, Creatinine 1.00, Sodium Level 142, Potassium Level 4.3, Chloride Level 111H, Carbon Dioxide Level 27, Calcium Level 8.3L, Estimated Mean Plasma Glucose 140H, Hemoglobin A1c 6.5, Iron Level 17L, Total Iron Binding Capacity 294, Transferrin % Saturation 5.8L, Ferritin 80 02/14/19 12:01: Bedside Glucose (Misc Panel) 114H CBC/BMP Laboratory Tests 02/13/19 14:28 Red Blood Count 3.63 L, Mean Corpuscular Volume 85.1, Mean Corpuscular Hemoglobin 26.2 L, Mean Corpuscular Hemoglobin Concent 30.7 L, Red Cell Distribution Width 18.1 H, Neutrophils (%) (Auto) 73.9 H, Lymphocytes (%) (Auto) 12.7 L, Monocytes (%) (Auto) 11.6 H, Eosinophils (%) (Auto) 1.0, Basophils (%) (Auto) 0.4, Neutrophils # (Auto) 7.8 H, Lymphocytes # (Auto) 1.3 L, Monocytes # (Auto) 1.2 H, Eosinophils # (Auto) 0.1, Basophils # (Auto) 0.0, Calcium Level 8.6 L, Total Creatine Kinase 64 02/14/19 05:57 Red Blood Count 3.57 L, Mean Corpuscular Volume 82.6, Mean Corpuscular Hemoglobin 25.5 L, Mean Corpuscular Hemoglobin Concent 30.8 L, Red Cell Distribution Width 17.7 H, Calcium Level 8.3 L Microbiology Microbiology 02/13/19 Blood Culture, Received Pending 02/13/19 Blood Culture, Received Pending 02/13/19 Urine Culture, Received Pending Nabor Bolden M.D. Feb 14, 2019 13:51
[2019-02-14 14:30] VITALS: BP 138/86
[2019-02-14] MEDS ORDERED: SLF 3 ML SYR IV PRN (14:45)
[2019-02-14 16:00] VITALS: BP 134/76
[2019-02-14 20:00] VITALS: BP 131/60
[2019-02-14] MEDS: ATORVASTATIN 20 MG TAB PO SCH (20:42)
[2019-02-14] MEDS: cefTRIAXone SOD 1 GM in D5W MINI-BAG PLUS 50 ML IV SCH (20:43)
[2019-02-14] MEDS: VENLAFAXINE **XR** 75MG CAPSULE PO SCH (20:43)
[2019-02-14] MEDS: SLF 3 ML SYR IV SCH (20:43)
[2019-02-14] MEDS: LEVEMIR (INSULIN DETEMIR) 1 UNITS/0.01ML SC SCH (21:00)
--- NOTE | 2019-02-14 22:04 | REPVR ---
EXAM: MR Angiogram Head Without Contrast, Arteries EXAM DATE/TIME: 02/14/2019 9:10 AM CLINICAL HISTORY: 78 years old, male; Other: Increase falls; Additional info: Dizziness TECHNIQUE: Imaging protocol: MR angiogram head without contrast. Exam focused on the arteries. 3D rendering: MIP reconstructed images were created and reviewed. COMPARISON: MRI-Brain without Contrast 03/24/2018 3:05 PM FINDINGS: Anterior circulation: Normal flow signal and luminal caliber in the petrous, cavernous and supraclinoid internal carotid arteries. Normal appearance of the anterior cerebral artery branches and middle cerebral artery branches through the MCA trifurcations. No occlusion, high-grade focal stenosis or dissection. No aneurysm. Posterior circulation: Normal distal vertebral arteries, with patent normal caliber basilar artery, and normal superior cerebellar and posterior cerebral arteries. No occlusion, high-grade stenosis or aneurysm. IMPRESSION: Unremarkable MR angiogram of the [place] and intracranial vertebrobasilar system. No intracranial large vessel lesion Electronically signed by: Luis Carter On 02/14/2019 22:03:40 PM
[2019-02-14 23:59] VITALS: BP 159/70
[2019-02-15 04:00] VITALS: BP 126/60
[2019-02-15 05:31] LABS: BASO % 0.5 % (0.0-1.0); EOS # 0.3 10^3/uL (0.0-0.50); EOS % 5.1 % (0.0-3.0); HEMATOCRIT 28.7 % (42.0-52.0); HEMOGLOBIN 8.6 g/dl (13.5-17.5); LYMPH # 1.7 10^3/uL (1.5-4.5); LYMPH % 25.7 % (24.0-44.0); MEAN CORPUSCULAR VOLUME 83.4 fl (80.0-96.0); MONO # 0.9 10^3/uL (0.0-0.8); MONO % 14.4 % (0.0-5.0); NEUTROPHILS # 3.5 10^3/uL (1.8-7.7); PLATELET COUNT, AUTOMATED 186 10^3/uL (150-450); RED BLOOD COUNT 3.44 10^6/uL (4.30-6.10); WHITE BLOOD COUNT 6.5 10^3/uL (4.0-10.0)
[2019-02-15 05:42] LABS: INR 1.88; PROTHROMBIN TIME 21.4 SECONDS (11.8-14.0)
[2019-02-15 06:00] LABS: ALBUMIN 2.6 GM/DL (3.2-5.2); ALT/SGPT 12 U/L (12-78); BILIRUBIN,TOTAL 0.3 MG/DL (0.2-1.0); BLOOD UREA NITROGEN 21 MG/DL (7-18); CALCIUM LEVEL 8.3 MG/DL (8.8-10.2); CARBON DIOXIDE LEVEL 27 MEQ/L (21-32); CHLORIDE LEVEL 111 MEQ/L (98-107); CK-MB VALUE MASS < 1.0 NG/ML (<3.6); CPK CREATINE PHOSPHOKINASE 46 U/L (39-308); CREATININE FOR GFR 1.03 MG/DL (0.70-1.30); GLOMERULAR FILTRATION RATE > 60.0 (>42); GLUCOSE, FASTING 105 MG/DL (70-100); MB/CK RELATIVE INDEX 2.17 (< OR =4); POTASSIUM SERUM 4.5 MEQ/L (3.5-5.1); SODIUM LEVEL 143 MEQ/L (136-145); TOTAL PROTEIN 6.7 GM/DL (6.4-8.2); TROPONIN I < 0.02 NG/ML (< 0.10)
[2019-02-15] MEDS: SLF 3 ML SYR IV SCH ×3 (06:15→21:24)
[2019-02-15 08:00] VITALS: BP 137/62
[2019-02-15] MEDS: HumaLOG INSULIN (NovoLOG) PER UNIT SC SCH ×4 (08:06→21:46)
[2019-02-15] MEDS: PANTOPRAZOLE 40MG TAB (PROTONIX) PO SCH ×2 (08:06→21:22)
[2019-02-15] MEDS: CANDESARTAN 4MG TABLET PO SCH (08:06)
[2019-02-15] MEDS: TAMSULOSIN 0.4 MG CAP PO SCH (08:06)
[2019-02-15] MEDS: GABAPENTIN 300 MG CAP PO SCH ×3 (08:06→21:22)
[2019-02-15] MEDS: VENLAFAXINE **XR** 75MG CAPSULE PO SCH ×2 (08:07→21:22)
[2019-02-15] MEDS: FINASTERIDE 5 MG TAB PO SCH (08:07)
--- NOTE | 2019-02-15 09:26 | REP ---
HISTORY: Dizziness. Echogenic material is seen along the carotid arterial wall, some of which casts and acoustic shadow consistent with calcific deposition. Right Left CCA systolic 112.0 cm/s 127.0 cm/s CCA diastolic 16.8 cm/s 26.7 cm/s ICA systolic 99.4 cm/s 94.4 cm/s ICA diastolic 24.9 cm/s 34.3 cm/s ICA/CCA ratio 1.01 0.84 Analysis of the spectral waveforms shows mild left internal carotid arterial spectral broadening. There is antegrade flow seen in both vertebral arteries. 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 There is less than 50% stenosis of the right internal carotid artery. Electronically Signed by Noe Lowry DO 02/15/2019 10:04 A
--- NOTE | 2019-02-15 10:03 | IPNPDOC ---
Subjective Date Seen The patient was seen on 02/15/19. Subjective Chief Complaint/HPI improved but persistent RLE weakness, no presyncope Constitutional: Denies: Chills Eyes: Denies: Pain Skin: Denies: Rash Pulmonary: Denies: Dyspnea, Cough Cardiovascular: Denies: Chest Pain Gastrointestinal: Denies: Nausea, Vomiting Objective Physical Examination General Exam: Positive: Alert Eye Exam: Positive: PERRLA ENT Exam: Positive: Atraumatic (R perioribital ecchymosis) Neck Exam: Negative: JVD Chest Exam: Positive: Clear to auscultation Heart Exam: Positive: Rate Normal Telemetry: Positive: No significant arrhythmia Abdomen Exam: Positive: Normal bowel sounds Extremity Exam: Negative: Edema Neuro Exam: Negative: Strength at 5/5 X4 ext, Sensation Intact (decreased LT/PP RLE below knee in L5/S1 dermatome; R EHL/FHL/gastroc 3-4/5) Assessment /Plan Problems (1) PUD (peptic ulcer disease) Status: Chronic Problem Text: as per Fe def anemia 02/15 given melanotic stools and Fe def anemia, VKA on hold, PPI to BID and + sulcraf 02/16 H pylori P (2) Right leg weakness Status: Acute Problem Text: moreso cw R L5/S1 radic ? 2 fall 02/15 given stable MRI brain, check LS spine MRI in AM (3) Syncope and collapse Status: Acute Problem Text: obviously suspicious of cardiac arrhythmia, no recent presyncope episodes, nor hypoglycemic sx-favor tele at least 72H +/- outpx loop remains on HD areli 4; met succ 50 QD held on admission on admission 30/07.5 c SBP 90 cw mild dehydration, resolved c IVF c UA cw UTI 02/15 MRI brain: 1. There is moderate right mastoid disease. 2. There are scattered nonspecific foci of high signal abnormality in the galan radiata and centrum semiovale. These are best seen on the flair images. These foci may represent areas of gliosis, demyelination, and/or chronic ischemic change. 3. There is a 4 mm focus of low signal abnormality in the right cerebellum on the gradient echo T2-weighted images, likely reflecting a focus of old hemorrhage or calcification. 02/14 TTE P 02/14 EEG P 02/14 MRA brain normal 02/14/19 ~1300 syncopal episode while eating lunch in bed-NO precedent sx, awoke face down in pool of blood 02/13/19 EKG NSR 86, LAFB, PRWP/prominent S in V6 cw PDP similar to 10/12/201802/13: CT brain, CS, MF NAD CXR NAD R hip/pelvis xray s fx 02/13 TSH/FT4 2.2/1.0 03/2018 TTE: CONCLUSIONS: 1. Normal left ventricle internal dimensions. Mild concentric left ventricle hypertrophy. No regional wall motion abnormalities of the left ventricle. Normal LV systolic function. LVEF 65% by visual estimate. Grade 1 LV diastolic dysfunction. 2. Mild dilatation of the aortic root at the level of the sinus of Valsalva. 3. No pericardial effusion. 4. Mild aortic valve sclerosis of a 3-cuspid aortic valve. 5. Otherwise normal appearing echocardiogram Doppler findings. DD: Sj Quinn MD [facility] 03/24/182319 DT: GALE 03/25/18 0615 DS: ANTDA 03/25/18 1424 <Electronically signed by Sj Quinn MD> 03/25/18 1424 DS2: (4) Fe deficiency anemia Status: Chronic Discussed With: Nurse Problem Text: anemia 2 ACD/B12/Fe def (ho PUD and now states has had "intermittent dark stools" x 2-3W s dyspepsia/JERZY baseline hgb mid 10s 02/15 8.6-+ Fe sucrose x 300 total, check HO, hold VKA, see PUD 02/14 9.1, %sat 6 10/2015 EGD/colon-W: - Chronic gastritis c Multiple duodenal ulcers, sigmoid losis (5) UTI (urinary tract infection) Status: Acute Problem Text: D3 ceftriaxone (on 02/13 also received levo 500 x 1) ho BPH c retention c recurrent UTI 02/13 UCX E. cloacae (UA TNTC WBC, 3+ bact/turbid) 02/13 BCX2 NG (6) ASD (atrial septal defect) Status: Chronic Response to Treatment: Stable Problem Text: by 2010 DARLIN c moderate R-L shunting c ho TIA; therefore, remains on chronic VKA (NO ho AF per 10/2017 Cardiology note) 02/14 INR 2.2-HD VKA R/U 10; 7.5 ROW-on hold until MRI brain - for bleed (7) Hypertension Status: Chronic Response to Treatment: Stable Problem Text: as per syncope (8) COPD (chronic obstructive pulmonary disease) Status: Acute (9) CAD (coronary artery disease) Status: Chronic Problem Text: no angina pain nor dyspnea 02/13 T-I <0.3 x 2D (10) Hypertension Status: Chronic Problem Text: as per syncope (11) Diabetes Status: Chronic Response to Treatment: Stable Problem Text: HD glar 20, met 1000 QD 02/14 decreased det 20 to 12 BG 90-110 on det 20, SSLI 02/2019 A1C 6.5 (12) BPH (benign prostatic hyperplasia) Status: Chronic Problem Text: on HD tamsul 0.8/fin 5 (13) ROB on CPAP Status: Chronic Problem Text: continue HD CPAP (14) Physical deconditioning Status: Acute Problem Text: 02/15 + PT Plan/VTE VTE Prophylaxis Ordered?: Yes VS, I&O, 24H, Fishbone Vital Signs/I&O Vital Signs Date Time Temp Pulse Resp B/P (MAP) Pulse Ox O2 Delivery O2 Flow Rate FiO2 02/15/19 08:00 97.6 79 18 137/62 (87) 93 02/15/19 04:00 2.0 02/13/19 19:29 Nasal Cannula I&O- Last 24 Hours up to 6 AM 02/15/19 06:00 Intake Total 1240 ml Output Total 1250 ml Balance -10 ml Laboratory Data 24H LABS Laboratory Tests 2 02/14/19 12:01: Bedside Glucose (Misc Panel) 114H 02/14/19 17:46: Bedside Glucose (Misc Panel) 119H 02/14/19 21:01: Bedside Glucose (Misc Panel) 130H 02/15/19 04:55: Immature Granulocyte % (Auto) 0.3, White Blood Count 6.5, Red Blood Count 3.44L, Hemoglobin 8.6L, Hematocrit 28.7L, Mean Corpuscular Volume 83.4, Mean Corpuscular Hemoglobin 25.0L, Mean Corpuscular Hemoglobin Concent 30.0L, Red Cell Distribution Width 17.8H, Platelet Count 186, Neutrophils (%) (Auto) 54.0, Lymphocytes (%) (Auto) 25.7, Monocytes (%) (Auto) 14.4H, Eosinophils (%) (Auto) 5.1H, Basophils (%) (Auto) 0.5, Neutrophils # (Auto) 3.5, Lymphocytes # (Auto) 1.7, Monocytes # (Auto) 0.9H, Eosinophils # (Auto) 0.3, Basophils # (Auto) 0.0, Nucleated Red Blood Cells % (auto) 0.0, Prothrombin Time 21.4H, Prothromb Time International Ratio 1.88, Anion Gap 5L, Glomerular Filtration Rate > 60.0, Blood Urea Nitrogen 21H, Creatinine 1.03, Sodium Level 143, Potassium Level 4.5, Chloride Level 111H, Carbon Dioxide Level 27, Calcium Level 8.3L, Aspartate Amino Transf (AST/SGOT) 12, Alanine Aminotransferase (ALT/SGPT) 12, Total Creatine Kinase 46, Alkaline Phosphatase 87, Total Bilirubin 0.3, Total Protein 6.7, Albumin 2.6L, Creatine Kinase MB < 1.0, Creatine Kinase MB Relative Index 2.17, Troponin I < 0.02, Albumin/Globulin Ratio 0.63L CBC/BMP Laboratory Tests 02/15/19 04:55 Red Blood Count 3.44 L, Mean Corpuscular Volume 83.4, Mean Corpuscular Hemoglobin 25.0 L, Mean Corpuscular Hemoglobin Concent 30.0 L, Red Cell Distribution Width 17.8 H, Neutrophils (%) (Auto) 54.0, Lymphocytes (%) (Auto) 25.7, Monocytes (%) (Auto) 14.4 H, Eosinophils (%) (Auto) 5.1 H, Basophils (%) (Auto) 0.5, Neutrophils # (Auto) 3.5, Lymphocytes # (Auto) 1.7, Monocytes # (Auto) 0.9 H, Eosinophils # (Auto) 0.3, Basophils # (Auto) 0.0, Calcium Level 8.3 L, Aspartate Amino Transf (AST/SGOT) 12, Alanine Aminotransferase (ALT/SGPT) 12, Total Creatine Kinase 46, Alkaline Phosphatase 87, Total Bilirubin 0.3, Total Protein 6.7, Albumin 2.6 L Microbiology Microbiology 02/13/19 Blood Culture - Preliminary, Resulted No growth after 24 hours . All specim... 02/13/19 Blood Culture - Preliminary, Resulted No growth after 24 hours . All specim... 02/13/19 Urine Culture - Final, Complete Enterobacter Cloacae Complex Nabor Bolden M.D. Feb 15, 2019 10:03
[2019-02-15 12:00] VITALS: BP 105/59
--- NOTE | 2019-02-15 12:16 | REPVR ---
EXAM: MR Head Without Contrast EXAM DATE/TIME: 02/15/2019 11:22 AM CLINICAL HISTORY: 78 years old, male; Weakness, extremity; Right; Additional info: Rle weakness TECHNIQUE: Imaging protocol: MR of the head without contrast. COMPARISON: MRA BRAIN W/O CONTRAST 02/14/2019 8:37 AM FINDINGS: Brain: There are scattered nonspecific foci of high signal abnormality in the galan radiata and centrum semiovale. These are best seen on the flair images. These foci may represent areas of gliosis, demyelination, and/or chronic ischemic change. There is a 4 mm focus of low signal abnormality in the right cerebellum on the gradient echo T2-weighted images, likely reflecting a focus of old hemorrhage or calcification. Ventricles: Normal. No ventriculomegaly. Bones/joints: Unremarkable. Soft tissues: Normal. Sinuses: There is mild sinus disease. There is a retention cyst/polyp in the left maxillary sinus. Mastoid air cells: There is moderate right mastoid disease. Orbits: Unremarkable. IMPRESSION: 1. There is moderate right mastoid disease. 2. There are scattered nonspecific foci of high signal abnormality in the galan radiata and centrum semiovale. These are best seen on the flair images. These foci may represent areas of gliosis, demyelination, and/or chronic ischemic change. 3. There is a 4 mm focus of low signal abnormality in the right cerebellum on the gradient echo T2-weighted images, likely reflecting a focus of old hemorrhage or calcification. Electronically signed by: Umberto Dash On 02/15/2019 12:16:42 PM
[2019-02-15] MEDS: SODIUM CHLORIDE NASAL 0.65% SPRAY BTL (OCEAN) SCH ×4 (13:39→23:00)
[2019-02-15] MEDS: POLYVINYL ALCOHOL OPHTH SOLN 15 ML(LIQUITEARS) OU SCH ×3 (13:39→21:23)
[2019-02-15] MEDS: IRON SUCROSE 100 MG in NS 100 ML OVER 1 HR IV SCH (13:40)
[2019-02-15 16:00] VITALS: BP 150/73
[2019-02-15 20:00] VITALS: BP 134/70
[2019-02-15] MEDS: ATORVASTATIN 20 MG TAB PO SCH (21:23)
[2019-02-15] MEDS: cefTRIAXone SOD 1 GM in D5W MINI-BAG PLUS 50 ML IV SCH (21:23)
[2019-02-15] MEDS: SUCRALFATE SUSP 1GM/10ML UD PO SCH (21:23)
[2019-02-15] MEDS: LEVEMIR (INSULIN DETEMIR) 1 UNITS/0.01ML SC SCH (21:24)
[2019-02-16] VITALS (8 sets, daily range): BP systolic 131–160; BP diastolic 59–90
[2019-02-16] MEDS: POLYVINYL ALCOHOL OPHTH SOLN 15 ML(LIQUITEARS) OU SCH ×9 (00:32→23:18)
[2019-02-16] MEDS: SODIUM CHLORIDE NASAL 0.65% SPRAY BTL (OCEAN) SCH ×8 (02:12→23:18)
[2019-02-16] MEDS: SLF 3 ML SYR IV SCH ×3 (06:24→21:03)
[2019-02-16 06:37] LABS: BASO # 0.1 10^3/uL (0.0-0.2); BASO % 0.7 % (0.0-1.0); EOS # 0.3 10^3/uL (0.0-0.50); EOS % 4.1 % (0.0-3.0); HEMATOCRIT 30.4 % (42.0-52.0); HEMOGLOBIN 9.1 g/dl (13.5-17.5); LYMPH # 1.8 10^3/uL (1.5-4.5); MEAN CORPUSCULAR HEMOGLOBIN 25.3 pg (27.0-33.0); MEAN CORPUSCULAR HGB CONC 29.9 g/dl (32.0-36.5); MEAN CORPUSCULAR VOLUME 84.7 fl (80.0-96.0); MONO # 0.8 10^3/uL (0.0-0.8); MONO % 12.1 % (0.0-5.0); NEUTROPHILS # 3.8 10^3/uL (1.8-7.7); NEUTROPHILS % 56.4 % (36.0-66.0); PLATELET COUNT, AUTOMATED 207 10^3/uL (150-450); RED BLOOD COUNT 3.59 10^6/uL (4.30-6.10); WHITE BLOOD COUNT 6.8 10^3/uL (4.0-10.0)
[2019-02-16 07:07] LABS: ALBUMIN 2.6 GM/DL (3.2-5.2); ALT/SGPT 14 U/L (12-78); BILIRUBIN,TOTAL 0.2 MG/DL (0.2-1.0); BLOOD UREA NITROGEN 25 MG/DL (7-18); CALCIUM LEVEL 8.8 MG/DL (8.8-10.2); CARBON DIOXIDE LEVEL 26 MEQ/L (21-32); CHLORIDE LEVEL 113 MEQ/L (98-107); CREATININE FOR GFR 0.97 MG/DL (0.70-1.30); GLOMERULAR FILTRATION RATE > 60.0 (>42); GLUCOSE, FASTING 117 MG/DL (70-100); POTASSIUM SERUM 4.3 MEQ/L (3.5-5.1); SODIUM LEVEL 145 MEQ/L (136-145); TOTAL PROTEIN 6.8 GM/DL (6.4-8.2)
--- NOTE | 2019-02-16 07:10 | ECHO ---
DATE OF PROCEDURE: 02/14/2019 DATE OF : 1940 GENDER: Male. HEIGHT: 70 inches. WEIGHT: 284 pounds. BODY SURFACE AREA: 2.43 meters squared. LOCATION: Inpatient PCU, room 3217. REFERRING PHYSICIAN: Dr. Nabor Bolden INDICATION: Syncope. MEASUREMENTS 2D MEASUREMENTS: RV - 3.9 cm LV - 5.1 cm Septum 1.3 cm Posterior wall 1.3 cm Aortic root 3.4 cm LA - 4.2 cm LVEF 65% DOPPLER MEASUREMENTS: AV - 1.3 m/s LVOT - 1.1 m/s LVOT diameter 2.0 cm MV - E 65, A 83, E/A ratio 0.8 Early mitral deceleration time 278 ms E prime 6.4, A prime 12, E/E prime ratio 10 PV - 1.0 m/s Pulmonary arterial acceleration time 113 ms RVSP 29 mmHg IVC - 1.9 cm COMMENTS: Normal sinus rhythm without intraventricular conduction disturbance. Technically difficult study in light of the patient's body habitus but diagnostically useful information was still obtained. M-mode and two-dimensional echocardiography was performed with pulsed, continuous wave, color flow and tissue Doppler studies. Mild concentric left ventricle hypertrophy with normal wall motion. Mildly dilated left atrium with impairment of LV diastolic function but currently normal estimated mean left atrial pressure. Normal right heart chamber sizes and motion and estimated pulmonary arterial pressure. Normal IVC size and collapse against an elevated central venous pressure. Mild aortic valvular sclerosis without stenosis and only very mild insufficiency. Mild degenerative changes of the mitral valvular apparatus without functional valvular abnormality. Normal appearing tricuspid valve with mild insufficiency. Normal aortic root size. No apparent intracardiac mass or pericardial effusion. No clear-cut structural or functional abnormality to account for the patient's syncopal spell.
[2019-02-16] MEDS: TAMSULOSIN 0.4 MG CAP PO SCH (08:12)
[2019-02-16] MEDS: FINASTERIDE 5 MG TAB PO SCH (08:12)
[2019-02-16] MEDS: PANTOPRAZOLE 40MG TAB (PROTONIX) PO SCH ×2 (08:13→21:01)
[2019-02-16] MEDS: GABAPENTIN 300 MG CAP PO SCH ×3 (08:13→21:01)
[2019-02-16] MEDS: VENLAFAXINE **XR** 75MG CAPSULE PO SCH ×2 (08:13→21:01)
[2019-02-16] MEDS: SUCRALFATE SUSP 1GM/10ML UD PO SCH ×4 (08:13→21:01)
[2019-02-16] MEDS: CANDESARTAN 4MG TABLET PO SCH (08:14)
[2019-02-16] MEDS: HumaLOG INSULIN (NovoLOG) PER UNIT SC SCH ×3 (08:27→17:15)
[2019-02-16] MEDS ORDERED: IRON SUCROSE 100MG 5ML VIAL (J1756 PER 1MG) IV SCH (09:00)
--- NOTE | 2019-02-16 09:28 | IPNPDOC ---
Subjective Date Seen The patient was seen on 02/16/19. Subjective Chief Complaint/HPI Pt this morning states that he is really feeling pretty good. He has no pain. He slept well last night. General: Denies: Fatigue Constitutional: Denies: Chills, Fever ENT: Denies: Head Aches Pulmonary: Denies: Dyspnea, Cough Cardiovascular: Denies: Chest Pain, Palpitations Gastrointestinal: Denies: Nausea, Vomiting Neurological: Reports: Weakness (LE weakness, but passed PT. ) Psych: Reports: Mood Normal Objective Physical Examination General Exam: Positive: Alert ENT Exam: Positive: Atraumatic (R perioribital ecchymosis) Neck Exam: Negative: JVD Chest Exam: Positive: Clear to auscultation, Diminished Heart Exam: Positive: Rate Normal, Normal S1, Normal S2 Telemetry: Positive: No significant arrhythmia Abdomen Exam: Positive: Normal bowel sounds, Soft; Negative: Tenderness Extremity Exam: Negative: Edema Neuro Exam: Positive: Normal Speech; Negative: Strength at 5/5 X4 ext, Sensation Intact (decreased LT/PP RLE below knee in L5/S1 dermatome; R EHL/FHL/gastroc 3-4/5) Psych Exam: Positive: Mental status NL Assessment /Plan Problems (1) PUD (peptic ulcer disease) Status: Chronic Problem Text: 02/16 1 documented brown stool 02/14 as per Fe def anemia 02/15 given melanotic stools and Fe def anemia, VKA on hold, PPI to BID and + sulcraf 02/16 H pylori P (2) Right leg weakness Status: Acute Problem Text: moreso cw R L5/S1 radic ? 2 fall 02/16 will obtain LS MRI this morning 02/15 given stable MRI brain, check LS spine MRI in AM (3) Syncope and collapse Status: Acute Problem Text: 02/16 no abnormality on tele noted at this time. obviously suspicious of cardiac arrhythmia, no recent presyncope episodes, nor hypoglycemic sx-favor tele at least 72H +/- outpx loop remains on HD areli 4; met succ 50 QD held on admission on admission 30/07.5 c SBP 90 cw mild dehydration, resolved c IVF c UA cw UTI 02/15 MRI brain: 1. There is moderate right mastoid disease. 2. There are scattered nonspecific foci of high signal abnormality in the galan radiata and centrum semiovale. These are best seen on the flair images. These foci may represent areas of gliosis, demyelination, and/or chronic ischemic change. 3. There is a 4 mm focus of low signal abnormality in the right cerebellum on the gradient echo T2-weighted images, likely reflecting a focus of old hemorrhage or calcification. 02/14 TTE P 02/14 EEG P 02/14 MRA brain normal 02/14/19 ~1300 syncopal episode while eating lunch in bed-NO precedent sx, awoke face down in pool of blood 02/13/19 EKG NSR 86, LAFB, PRWP/prominent S in V6 cw PDP similar to 10/12/201802/13: CT brain, CS, MF NAD CXR NAD R hip/pelvis xray s fx 02/13 TSH/FT4 2.2/1.0 03/2018 TTE: CONCLUSIONS: 1. Normal left ventricle internal dimensions. Mild concentric left ventricle hypertrophy. No regional wall motion abnormalities of the left ventricle. Normal LV systolic function. LVEF 65% by visual estimate. Grade 1 LV diastolic dysfunction. 2. Mild dilatation of the aortic root at the level of the sinus of Valsalva. 3. No pericardial effusion. 4. Mild aortic valve sclerosis of a 3-cuspid aortic valve. 5. Otherwise normal appearing echocardiogram Doppler findings. DD: Sj Quinn MD [facility] 03/24/182319 DT: GALE 03/25/18 0615 DS: ANTDA 03/25/18 1424 <Electronically signed by Sj Quinn MD> 03/25/18 1424 DS2: (4) Fe deficiency anemia Status: Chronic Discussed With: Nurse Problem Text: anemia 2 ACD/B12/Fe def (ho PUD and now states has had "inte rmittent dark stools" x 2-3W s dyspepsia/JERZY baseline hgb mid 10s 02/15 8.6-+ Fe sucrose x 300 total, check HO, hold VKA, see PUD 02/14 9.1, %sat 6 10/2015 EGD/colon-W: - Chronic gastritis c Multiple duodenal ulcers, sigmoid losis (5) UTI (urinary tract infection) Status: Acute Problem Text: 02/16 change Rocephin to PO Keflex. D3 ceftriaxone (on 02/13 also received levo 500 x 1) ho BPH c retention c recurrent UTI 02/13 UCX E. cloacae (UA TNTC WBC, 3+ bact/turbid) 02/13 BCX2 NG (6) ASD (atrial septal defect) Status: Chronic Response to Treatment: Stable Problem Text: 02/16: MRI shows no bleed. will resume Warfarin at 8mg daily. by 2010 DARLIN c moderate R-L shunting c ho TIA; therefore, remains on chronic VKA (NO ho AF per 10/2017 Cardiology note) 02/14 INR 2.2-HD VKA R/U 10; 7.5 ROW-on hold until MRI brain - for bleed (7) Hypertension Status: Chronic Response to Treatment: Stable Problem Text: as per syncope (8) COPD (chronic obstructive pulmonary disease) Status: Acute (9) CAD (coronary artery disease) Status: Chronic Problem Text: no angina pain nor dyspnea 02/13 T-I <0.3 x 2D (10) Hypertension Status: Chronic Problem Text: as per syncope (11) Diabetes Status: Chronic Response to Treatment: Stable Problem Text: HD glar 20, met 1000 QD 02/14 decreased det 20 to 12 BG 90-110 on det 20, SSLI 02/2019 A1C 6.5 (12) BPH (benign prostatic hyperplasia) Status: Chronic Problem Text: on HD tamsul 0.8/fin 5 (13) ROB on CPAP Status: Chronic Problem Text: continue HD CPAP (14) Physical deconditioning Status: Acute Problem Text: 02/15 + PT Plan/VTE VTE Prophylaxis Ordered?: Yes VS, I&O, 24H, Fishbone Vital Signs/I&O Vital Signs Date Time Temp Pulse Resp B/P (MAP) Pulse Ox O2 Delivery O2 Flow Rate FiO2 02/16/19 08:00 98.1 91 16 160/81 (107) 93 2.0 02/13/19 19:29 Nasal Cannula I&O- Last 24 Hours up to 6 AM 02/16/19 06:00 Intake Total 1670 ml Output Total 1050 ml Balance 620 ml Laboratory Data 24H LABS Laboratory Tests 2 02/15/19 11:33: Bedside Glucose (Misc Panel) 111H 02/15/19 17:10: Bedside Glucose (Misc Panel) 152H 02/15/19 21:36: Bedside Glucose (Misc Panel) 168H 02/16/19 05:21: Immature Granulocyte % (Auto) 0.7, White Blood Count 6.8, Red Blood Count 3.59L, Hemoglobin 9.1L, Hematocrit 30.4L, Mean Corpuscular Volume 84.7, Mean Corpuscular Hemoglobin 25.3L, Mean Corpuscular Hemoglobin Concent 29.9L, Red Cell Distribution Width 17.5H, Platelet Count 207, Neutrophils (%) (Auto) 56.4, Lymphocytes (%) (Auto) 26.0, Monocytes (%) (Auto) 12.1H, Eosinophils (%) (Auto) 4.1H, Basophils (%) (Auto) 0.7, Neutrophils # (Auto) 3.8, Lymphocytes # (Auto) 1.8, Monocytes # (Auto) 0.8, Eosinophils # (Auto) 0.3, Basophils # (Auto) 0.1, Nucleated Red Blood Cells % (auto) 0.0, Anion Gap 6L, Glomerular Filtration Rate > 60.0, Blood Urea Nitrogen 25H, Creatinine 0.97, Sodium Level 145, Potassium Level 4.3, Chloride Level 113H, Carbon Dioxide Level 26, Calcium Level 8.8, Aspartate Amino Transf (AST/SGOT) 11, Alanine Aminotransferase (ALT/SGPT) 14, Alkaline Phosphatase 84, Total Bilirubin 0.2, Total Protein 6.8, Albumin 2.6L, Albumin/Globulin Ratio 0.62L CBC/BMP Laboratory Tests 02/16/19 05:21 Red Blood Count 3.59 L, Mean Corpuscular Volume 84.7, Mean Corpuscular Hemoglobin 25.3 L, Mean Corpuscular Hemoglobin Concent 29.9 L, Red Cell Distribution Width 17.5 H, Neutrophils (%) (Auto) 56.4, Lymphocytes (%) (Auto) 26.0, Monocytes (%) (Auto) 12.1 H, Eosinophils (%) (Auto) 4.1 H, Basophils (%) (Auto) 0.7, Neutrophils # (Auto) 3.8, Lymphocytes # (Auto) 1.8, Monocytes # (Auto) 0.8, Eosinophils # (Auto) 0.3, Basophils # (Auto) 0.1, Calcium Level 8.8, Aspartate Amino Transf (AST/SGOT) 11, Alanine Aminotransferase (ALT/SGPT) 14, Alkaline Phosphatase 84, Total Bilirubin 0.2, Total Protein 6.8, Albumin 2.6 L Microbiology Microbiology 02/13/19 Blood Culture - Preliminary, Resulted No Growth after 48 hours. All Specime... 02/13/19 Blood Culture - Preliminary, Resulted No Growth after 48 hours. All Specime... 02/13/19 Urine Culture - Final, Complete Enterobacter Cloacae Complex HARRY CHATMAN PA-C Feb 16, 2019 09:28 Melvin Cervantes MD Feb 16, 2019 12:07
[2019-02-16] MEDS: CEPHALEXIN 500 MG CAP PO SCH ×3 (09:41→21:01)
[2019-02-16 10:42] LABS: VITAMIN B12 LEVEL 984 PG/ML (247-911)
[2019-02-16 11:36] LABS: FOLATE 11.1 NG/ML (>5.4)
[2019-02-16] MEDS: IRON SUCROSE 100 MG in NS 100 ML OVER 1 HR IV SCH (13:19)
[2019-02-16] MEDS ORDERED: WARFARIN SOD 4 MG TAB PO SCH (17:00)
--- NOTE | 2019-02-16 19:38 | EEG ---
DATE OF PROCEDURE: 02/15/2019 REFERRING PHYSICIAN: Dr. Nathan Viera DIAGNOSIS: Syncope. EEG NUMBER: [id number] HISTORY: The patient is a 78-year-old man who had a passing out spell. He woke up face down in a pool of blood. He was found to have a urinary tract infection. This EEG was done to rule out epileptic potential. He is currently taking ceftriaxone, Lipitor, candesartan, finasteride, gabapentin, Protonix, Effexor, Flomax, etc. TECHNICAL DESCRIPTION: This digital EEG was recorded by 21 scalp, ear and two EKG electrodes and was reviewed in bipolar and referential montages following reformatting in 10-20 international electrode placement system. INTERPRETATION: The patient was noted to be in awake and drowsy states during this EEG. Resting awake background rhythm consisted of 8 Hz alpha activity measuring 15-40 microvolts in amplitude, which was symmetric and reactive to eye opening. Excessive muscle artifact was noted in bilateral frontal and temporal head regions. No sleep was achieved. Hyperventilation could not be performed. Photic stimulation remained unremarkable. EKG revealed normal sinus rhythm. No focal, lateralizing or epileptiform abnormalities were seen. No relevant clinical activity was noted. CONCLUSION: This EEG in mostly awake state is within normal limits.
[2019-02-16] MEDS: ATORVASTATIN 20 MG TAB PO SCH (21:01)
[2019-02-16] MEDS: LEVEMIR (INSULIN DETEMIR) 1 UNITS/0.01ML SC SCH (21:02)
[2019-02-17] MEDS: SODIUM CHLORIDE NASAL 0.65% SPRAY BTL (OCEAN) SCH ×4 (02:00→12:10)
[2019-02-17] MEDS: POLYVINYL ALCOHOL OPHTH SOLN 15 ML(LIQUITEARS) OU SCH ×4 (03:00→12:11)
[2019-02-17] MEDS: SLF 3 ML SYR IV SCH (05:58)
[2019-02-17 06:00] VITALS: BP 126/61
[2019-02-17 06:58] LABS: BASO % 0.3 % (0.0-1.0); EOS # 0.2 10^3/uL (0.0-0.50); EOS % 2.5 % (0.0-3.0); HEMATOCRIT 29.4 % (42.0-52.0); LYMPH # 1.8 10^3/uL (1.5-4.5); MEAN CORPUSCULAR HEMOGLOBIN 25.4 pg (27.0-33.0); MEAN CORPUSCULAR HGB CONC 30.6 g/dl (32.0-36.5); MEAN CORPUSCULAR VOLUME 82.8 fl (80.0-96.0); MONO # 0.9 10^3/uL (0.0-0.8); MONO % 9.3 % (0.0-5.0); NEUTROPHILS # 6.1 10^3/uL (1.8-7.7); NEUTROPHILS % 66.7 % (36.0-66.0); PLATELET COUNT, AUTOMATED 212 10^3/uL (150-450); RED BLOOD COUNT 3.55 10^6/uL (4.30-6.10); WHITE BLOOD COUNT 9.2 10^3/uL (4.0-10.0)
[2019-02-17 07:09] LABS: INR 1.34; PROTHROMBIN TIME 16.3 SECONDS (11.8-14.0)
[2019-02-17 07:24] LABS: ALBUMIN 2.7 GM/DL (3.2-5.2); ALT/SGPT 14 U/L (12-78); BILIRUBIN,TOTAL 0.3 MG/DL (0.2-1.0); BLOOD UREA NITROGEN 23 MG/DL (7-18); CALCIUM LEVEL 8.4 MG/DL (8.8-10.2); CARBON DIOXIDE LEVEL 26 MEQ/L (21-32); CHLORIDE LEVEL 113 MEQ/L (98-107); CREATININE FOR GFR 0.92 MG/DL (0.70-1.30); GLOMERULAR FILTRATION RATE > 60.0 (>42); GLUCOSE, FASTING 106 MG/DL (70-100); POTASSIUM SERUM 3.9 MEQ/L (3.5-5.1); SODIUM LEVEL 144 MEQ/L (136-145); TOTAL PROTEIN 6.8 GM/DL (6.4-8.2)
[2019-02-17] MEDS: HumaLOG INSULIN (NovoLOG) PER UNIT SC SCH ×2 (07:30→12:00)
[2019-02-17] MEDS: SUCRALFATE SUSP 1GM/10ML UD PO SCH ×2 (08:49→12:11)
[2019-02-17] MEDS: VENLAFAXINE **XR** 75MG CAPSULE PO SCH (08:50)
[2019-02-17] MEDS: FINASTERIDE 5 MG TAB PO SCH (08:50)
[2019-02-17] MEDS: CANDESARTAN 4MG TABLET PO SCH (08:50)
[2019-02-17] MEDS: CEPHALEXIN 500 MG CAP PO SCH (08:50)
[2019-02-17] MEDS: GABAPENTIN 300 MG CAP PO SCH ×2 (08:51→12:11)
[2019-02-17] MEDS: PANTOPRAZOLE 40MG TAB (PROTONIX) PO SCH (08:51)
[2019-02-17] MEDS: TAMSULOSIN 0.4 MG CAP PO SCH (08:51)
[2019-02-17] MEDS ORDERED: CEPH500C PO (10:23)
--- NOTE | 2019-02-17 19:44 | DSES ---
DATE OF ADMISSION: 02/16/2019 DATE OF DISCHARGE: 02/17/2019 PRIMARY CARE PROVIDER: Dr. Aguila Griffin ATTENDING PHYSICIAN TODAY: Dr. Melvin Cervantes HISTORY: This is a 78-year-old male patient who was admitted to [facility] after suffering a fall where he resides at [facility]. It was unwitnessed with loss of consciousness and just prior, he had been sitting on his bed eating lunch and the next thing he knew he was lying on the floor in a pool of blood. He denied having any chest pain, dizziness, shortness of breath, headache, blurry vision, or other prodromal symptoms. The patient was transferred to the emergency department where his vital signs were stable, urinalysis (UA) was positive for a urinary tract infection, and he was started on ceftriaxone and IV fluids. He was admitted to the hospital progressive care unit, underwent CT of the head, and troponins which were unremarkable. MRI of the head and carotids was also obtained and unremarkable. Telemetry for 72 hours was benign. The patient was transitioned from IV Rocephin to oral Keflex with return of his blood cultures which revealed Enterobacter cloacae complex. The patient is feeling better. He has been seen by physical therapy who feel as though he is safe to return to [facility]. DISCHARGE DIAGNOSES: Include: 1. Fall with loss of consciousness. 2. Syncope, collapse. 3. Right leg weakness. 4. Peptic ulcer disease. 5. Iron deficiency anemia. 6. Urinary tract infection. 7. Atrioseptal defect. 8. Hypertension. 9. Chronic obstructive pulmonary disease (COPD). 10. Morbid obesity. 11. Diabetes mellitus, type 2. 12. Obstructive sleep apnea. DISCHARGE MEDICATIONS: Include: - cephalexin 500 mg by mouth three times a day - acetaminophen 500 mg by mouth four times a day as needed for pain - atorvastatin 40 mg by mouth at bedtime - Biotene two sprays every six hours as needed for dry mouth - bisacodyl 10 mg per rectum daily as needed for bowel care - Atacand 4 mg by mouth daily - vitamin D 2000 units daily - B12 1000 mcg daily - artificial tears one drop in each eye four times a day as needed for dry eyes - finasteride 5 mg daily - gabapentin 300 mg three times a day - Lantus 20 units subcutaneous at bedtime - milk of magnesia 30 mL by mouth daily as needed for constipation - magnesium oxide 400 mg daily - metformin 1000 mg by mouth twice a day - multivitamin one tablet daily - Nitrostat 0.4 mg sublingually as needed for chest pain - Nystatin powder topically three times a day as needed for rash - Afrin nasal spray four times a day as needed for nasal dryness - Protonix 40 mg daily - [place] nasal spray one spray intranasally every two hours as needed for nasal congestion - Flomax 0.4 mg by mouth daily - venlafaxine 25 mg by mouth twice a day - PreserVision one capsule daily - Coumadin 5 mg six times weekly - Coumadin 4 mg six times weekly - zinc oxide 40% topically twice a day as needed for rash or itching DISCHARGE PLAN: Followup with Dr. Griffin at [facility] in 2-3 days. His activity should be as tolerated. His diet is low-sodium.
== END 2019-02-17 12:30 | DRG 312 ==
LOC: M ED 13:41 → EDBD 13:41 → M ED INP 19:18 → M PCU 02-14 14:19 → OBSVTOIN 02-16 09:22 → M MSPAV 02-16 22:15
PROVIDERS: ADMIT Internal Medicine; ATTEND Family Medicine
DX: R55 Syncope and collapse (principal); N39.0 Urinary tract infection, site not specified; Q21.1 Atrial septal defect; I10 Essential (primary) hypertension; J44.9 Chronic obstructive pulmonary disease, unspecified; D50.9 Iron deficiency anemia, unspecified; K27.9 Peptic ulcer, site unspecified, unspecified as acute or chronic, without hemorrhage or perforation; E66.01 Morbid (severe) obesity due to excess calories; E11.9 Type 2 diabetes mellitus without complications; G47.33 Obstructive sleep apnea (adult) (pediatric); Z79.899 Other long term (current) drug therapy; Z86.73 Personal history of transient ischemic attack (TIA), and cerebral infarction without residual deficits; I25.10 Atherosclerotic heart disease of native coronary artery without angina pectoris; I48.2 Chronic atrial fibrillation; Z79.01 Long term (current) use of anticoagulants; F32.9 Major depressive disorder, single episode, unspecified; Z87.891 Personal history of nicotine dependence; S00.83XA Contusion of other part of head, initial encounter; W18.30XA Fall on same level, unspecified, initial encounter; Y92.009 Unspecified place in unspecified non-institutional (private) residence as the place of occurrence of the external cause; Z88.8 Allergy status to other drugs, medicaments and biological substances

== ENCOUNTER → 2019-02-16 | Outpatient (REF) | payer MEDICARE, MEDICAID, OTHER ==
[~2019-02-16] MED LIST changes: +ARTISOL2 OU; +ATAC4TAB2 PO; +BIOTLIQ9 PO; +BISA10SU20 PR; +CEPH500C PO; +THERTAB12 PO; +WARF-20 PO
== END ==
PROVIDERS: ATTEND Family Medicine
DX: I48.91 Unspecified atrial fibrillation (principal)

== ENCOUNTER → 2019-02-18 | Outpatient (REF) ==
[2019-02-18 10:22] LABS: HEMATOCRIT 29.9 % (42.0-52.0); HEMOGLOBIN 8.9 g/dl (13.5-17.5); MEAN CORPUSCULAR HEMOGLOBIN 25.1 pg (27.0-33.0); MEAN CORPUSCULAR HGB CONC 29.8 g/dl (32.0-36.5); MEAN CORPUSCULAR VOLUME 84.2 fl (80.0-96.0); PLATELET COUNT, AUTOMATED 215 10^3/uL (150-450); RED BLOOD COUNT 3.55 10^6/uL (4.30-6.10); WHITE BLOOD COUNT 10.2 10^3/uL (4.0-10.0)
[2019-02-18 10:33] LABS: INR 1.36; PROTHROMBIN TIME 16.5 SECONDS (11.8-14.0)
[2019-02-18 10:56] LABS: BLOOD UREA NITROGEN 19 MG/DL (7-18); CALCIUM LEVEL 8.2 MG/DL (8.8-10.2); CARBON DIOXIDE LEVEL 26 MEQ/L (21-32); CHLORIDE LEVEL 106 MEQ/L (98-107); CREATININE FOR GFR 0.95 MG/DL (0.70-1.30); GLOMERULAR FILTRATION RATE > 60.0 (>42); GLUCOSE, FASTING 126 MG/DL (70-100); POTASSIUM SERUM 4.2 MEQ/L (3.5-5.1); SODIUM LEVEL 142 MEQ/L (136-145)
== END ==
PROVIDERS: ATTEND Family Medicine
DX: I48.91 Unspecified atrial fibrillation (principal); E11.9 Type 2 diabetes mellitus without complications

== ENCOUNTER → 2019-02-20 | Outpatient (REF) ==
[~2019-02-20] MED LIST changes: +LEVA1TAB2 PO; +MOM30SS PO; -OXYB10TA2 PO; +OXYB10TA23 PO; +WARF-22 PO
[2019-02-20 10:06] LABS: INR 1.54; PROTHROMBIN TIME 18.2 SECONDS (11.8-14.0)
== END ==
PROVIDERS: ATTEND Family Medicine
DX: I48.91 Unspecified atrial fibrillation (principal)

== ENCOUNTER → 2019-02-23 | Outpatient (REF) ==
[~2019-02-23] MED LIST changes: -LEVA1TAB2 PO; -MOM30SS PO; +OXYB10TA2 PO; -OXYB10TA23 PO; -WARF-22 PO
[2019-02-23 10:44] LABS: INR 2.54; PROTHROMBIN TIME 27.2 SECONDS (11.8-14.0)
== END ==
PROVIDERS: ATTEND Family Medicine
DX: I48.91 Unspecified atrial fibrillation (principal)

== ENCOUNTER → 2019-02-25 | Outpatient (REF) ==
[2019-02-25 08:26] LABS: HEMATOCRIT 31.6 % (42.0-52.0); HEMOGLOBIN 9.5 g/dl (13.5-17.5); MEAN CORPUSCULAR HEMOGLOBIN 25.4 pg (27.0-33.0); MEAN CORPUSCULAR HGB CONC 30.1 g/dl (32.0-36.5); MEAN CORPUSCULAR VOLUME 84.5 fl (80.0-96.0); PLATELET COUNT, AUTOMATED 164 10^3/uL (150-450); RED BLOOD COUNT 3.74 10^6/uL (4.30-6.10); WHITE BLOOD COUNT 6.2 10^3/uL (4.0-10.0)
[2019-02-25 08:37] LABS: INR 2.86; PROTHROMBIN TIME 29.9 SECONDS (11.8-14.0)
[2019-02-25 08:48] LABS: BLOOD UREA NITROGEN 18 MG/DL (7-18); CALCIUM LEVEL 8.7 MG/DL (8.8-10.2); CARBON DIOXIDE LEVEL 28 MEQ/L (21-32); CHLORIDE LEVEL 108 MEQ/L (98-107); CREATININE FOR GFR 0.96 MG/DL (0.70-1.30); GLOMERULAR FILTRATION RATE > 60.0 (>42); GLUCOSE, FASTING 91 MG/DL (70-100); POTASSIUM SERUM 4.6 MEQ/L (3.5-5.1); SODIUM LEVEL 142 MEQ/L (136-145)
== END ==
PROVIDERS: ATTEND Family Medicine
DX: I48.91 Unspecified atrial fibrillation (principal)

== ENCOUNTER 2019-03-07 14:34 | Emergency (ER) | payer MEDICARE, MEDICAID ==
[~2019-03-07] VITALS: Ht 177.8 cm; Wt 128.7 kg
[2019-03-07 15:09] LABS: BASO % 0.3 % (0.0-1.0); EOS # 0.1 10^3/uL (0.0-0.50); EOS % 1.1 % (0.0-3.0); HEMATOCRIT 33.9 % (42.0-52.0); HEMOGLOBIN 10.3 g/dl (13.5-17.5); LYMPH # 1.5 10^3/uL (1.5-4.5); LYMPH % 15.1 % (24.0-44.0); MEAN CORPUSCULAR HEMOGLOBIN 26.5 pg (27.0-33.0); MEAN CORPUSCULAR HGB CONC 30.4 g/dl (32.0-36.5); MEAN CORPUSCULAR VOLUME 87.1 fl (80.0-96.0); MONO # 0.8 10^3/uL (0.0-0.8); MONO % 8.7 % (0.0-5.0); NEUTROPHILS # 7.2 10^3/uL (1.8-7.7); NEUTROPHILS % 74.5 % (36.0-66.0); PLATELET COUNT, AUTOMATED 152 10^3/uL (150-450); RED BLOOD COUNT 3.89 10^6/uL (4.30-6.10); WHITE BLOOD COUNT 9.6 10^3/uL (4.0-10.0)
[2019-03-07] MEDS ORDERED: WARF-22 PO (15:12)
[2019-03-07] MEDS ORDERED: MOM30SS PO (15:17)
[2019-03-07 15:20] LABS: INR 1.83; PARTIAL THROMBOPLASTIN TIME 37.6 SECONDS (25.0-38.4); PROTHROMBIN TIME 20.9 SECONDS (11.8-14.0)
[2019-03-07 15:26] LABS: ALT/SGPT 13 U/L (12-78); BILIRUBIN,DIRECT 0.1 MG/DL (0.0-0.2); BILIRUBIN,TOTAL 0.2 MG/DL (0.2-1.0); BLOOD UREA NITROGEN 18 MG/DL (7-18); CALCIUM LEVEL 8.3 MG/DL (8.8-10.2); CARBON DIOXIDE LEVEL 25 MEQ/L (21-32); CHLORIDE LEVEL 107 MEQ/L (98-107); CK-MB VALUE MASS < 1.0 NG/ML (<3.6); CPK CREATINE PHOSPHOKINASE 39 U/L (39-308); CREATININE FOR GFR 1.27 MG/DL (0.70-1.30); GLOMERULAR FILTRATION RATE 58.5 (>42); GLUCOSE, FASTING 102 MG/DL (70-100); LIPASE 67 U/L (73-393); MB/CK RELATIVE INDEX 2.56 (< OR =4); POTASSIUM SERUM 4.8 MEQ/L (3.5-5.1); SODIUM LEVEL 139 MEQ/L (136-145); TOTAL PROTEIN 6.4 GM/DL (6.4-8.2); TROPONIN I < 0.02 NG/ML (< 0.10)
--- NOTE | 2019-03-07 15:48 | REP ---
Clinical: bilateral lower extremity pain. Technique: De La Fuente scale and color Doppler evaluation using linear high frequency transducer. Findings: Ultrasound examination of the right and left lower extremity deep venous structures from the common femoral vein to the popliteal vein demonstrates normal compressibility flow and wave patterns in response to respiration and augmentation. There is no evidence for deep venous thrombosis. Right Snow's cyst measures 5.3 x 1.7 x 2.8 cm Impression: No evidence for deep venous thrombosis. Right Snow's cyst. Electronically Signed by Levi Johnson MD 03/07/2019 03:39 P
--- NOTE | 2019-03-07 15:58 | REP ---
Clinical: Acute chest pain . Comparison: 02/13/2019 . Technique: PA and lateral. Findings: The mediastinum and cardiac silhouette are normal. The lung vigil are clear and without acute consolidation, effusion, or pneumothorax. Impression: 1. No acute cardiopulmonary process. Electronically Signed by Levi Johnson MD 03/07/2019 03:50 P
[2019-03-07 21:33] LABS: CK-MB VALUE MASS < 1.0 NG/ML (<3.6); CPK CREATINE PHOSPHOKINASE 35 U/L (39-308); MB/CK RELATIVE INDEX 2.86 (< OR =4); TROPONIN I < 0.02 NG/ML (< 0.10)
[2019-03-07 21:45] VITALS: BP 155/71
--- NOTE | 2019-03-08 07:15 | ECGEPIP ---
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
--- NOTE | 2019-03-08 07:19 | ECGEPIP ---
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
== END 2019-03-07 22:02 | disposition home or self-care (01) ==
LOC: EDBD 14:34 → M ED 14:34
DX: R07.89 Other chest pain (principal); M71.21 Synovial cyst of popliteal space [Baker], right knee; M79.604 Pain in right leg; M79.605 Pain in left leg; I48.91 Unspecified atrial fibrillation; I25.10 Atherosclerotic heart disease of native coronary artery without angina pectoris; I10 Essential (primary) hypertension; E11.9 Type 2 diabetes mellitus without complications; F32.9 Major depressive disorder, single episode, unspecified; G47.30 Sleep apnea, unspecified; Z86.73 Personal history of transient ischemic attack (TIA), and cerebral infarction without residual deficits; Z79.01 Long term (current) use of anticoagulants; Z79.899 Other long term (current) drug therapy; Z79.4 Long term (current) use of insulin; Z87.891 Personal history of nicotine dependence; Z88.1 Allergy status to other antibiotic agents; Z88.6 Allergy status to analgesic agent; Z88.8 Allergy status to other drugs, medicaments and biological substances

== ENCOUNTER → 2019-03-11 | Outpatient (REF) | payer MEDICARE, MEDICAID ==
[~2019-03-11] MED LIST changes: +MOM30SS PO; +WARF-22 PO
[2019-03-11 11:39] LABS: INR 1.5; PROTHROMBIN TIME 17.9 SECONDS (11.8-14.0)
== END ==
PROVIDERS: ATTEND Family Medicine
DX: I48.91 Unspecified atrial fibrillation (principal)

== ENCOUNTER → 2019-03-16 | Outpatient (REF) | payer MEDICARE, MEDICAID ==
[~2019-03-16] MED LIST changes: +LEVA1TAB2 PO; -OXYB10TA2 PO; +OXYB10TA23 PO
[2019-03-16 15:30] LABS: INR 2.25; PROTHROMBIN TIME 24.7 SECONDS (11.8-14.0)
== END ==
PROVIDERS: ATTEND Family Medicine
DX: I48.91 Unspecified atrial fibrillation (principal)

== ENCOUNTER → 2019-03-18 | Outpatient (REF) ==
[~2019-03-18] MED LIST changes: -LEVA1TAB2 PO; +OXYB10TA2 PO; -OXYB10TA23 PO
[2019-03-18 09:30] LABS: INR 1.98; PROTHROMBIN TIME 22.3 SECONDS (11.8-14.0)
== END ==
PROVIDERS: ATTEND Family Medicine
DX: I48.91 Unspecified atrial fibrillation (principal)

== ENCOUNTER → 2019-03-25 | Outpatient (REF) | payer MEDICAID, MEDICARE ==
[2019-03-25 09:36] LABS: INR 3.28; PROTHROMBIN TIME 33.4 SECONDS (11.8-14.0)
== END ==
PROVIDERS: ATTEND Family Medicine
DX: I48.91 Unspecified atrial fibrillation (principal)

== ENCOUNTER → 2019-03-26 | Outpatient (REF) | PROVIDERS: ATTEND Family Medicine | DX: I48.91 Unspecified atrial fibrillation (principal) ==

== ENCOUNTER → 2019-03-27 | Outpatient (REF) ==
[2019-03-27 10:40] LABS: PROTHROMBIN TIME 39.1 SECONDS (11.8-14.0)
== END ==
PROVIDERS: ATTEND Family Medicine
DX: I48.91 Unspecified atrial fibrillation (principal)

== ENCOUNTER → 2019-03-29 | Outpatient (REF) ==
[2019-03-29 12:06] LABS: INR 2.46; PROTHROMBIN TIME 26.5 SECONDS (11.8-14.0)
== END ==
PROVIDERS: ATTEND Family Medicine
DX: I48.91 Unspecified atrial fibrillation (principal)

== ENCOUNTER → 2019-03-31 | Outpatient (REF) ==
[2019-03-31 10:52] LABS: HEMATOCRIT 34.6 % (42.0-52.0); HEMOGLOBIN 10.5 g/dl (13.5-17.5); MEAN CORPUSCULAR HEMOGLOBIN 26.4 pg (27.0-33.0); MEAN CORPUSCULAR HGB CONC 30.3 g/dl (32.0-36.5); MEAN CORPUSCULAR VOLUME 86.9 fl (80.0-96.0); PLATELET COUNT, AUTOMATED 140 10^3/uL (150-450); RED BLOOD COUNT 3.98 10^6/uL (4.30-6.10); WHITE BLOOD COUNT 6.3 10^3/uL (4.0-10.0)
[2019-03-31 11:08] LABS: INR 1.65; PROTHROMBIN TIME 19.3 SECONDS (11.8-14.0)
[2019-03-31 11:16] LABS: BLOOD UREA NITROGEN 19 MG/DL (7-18); CALCIUM LEVEL 8.5 MG/DL (8.8-10.2); CARBON DIOXIDE LEVEL 24 MEQ/L (21-32); CHLORIDE LEVEL 106 MEQ/L (98-107); CREATININE FOR GFR 0.96 MG/DL (0.70-1.30); GLOMERULAR FILTRATION RATE > 60.0 (>42); GLUCOSE, FASTING 122 MG/DL (70-100); POTASSIUM SERUM 4.6 MEQ/L (3.5-5.1); SODIUM LEVEL 140 MEQ/L (136-145)
== END ==
PROVIDERS: ATTEND Family Medicine
DX: I48.91 Unspecified atrial fibrillation (principal)

== ENCOUNTER → 2019-04-02 | Outpatient (REF) ==
[2019-04-02 11:55] LABS: INR 1.63
== END ==
PROVIDERS: ATTEND Family Medicine
DX: I48.91 Unspecified atrial fibrillation (principal)

== ENCOUNTER → 2019-04-08 | Outpatient (REF) ==
[2019-04-08 09:08] LABS: INR 1.77; PROTHROMBIN TIME 20.4 SECONDS (11.8-14.0)
== END ==
PROVIDERS: ATTEND Family Medicine
DX: I48.91 Unspecified atrial fibrillation (principal)

== ENCOUNTER → 2019-04-13 | Outpatient (REF) ==
[2019-04-13 10:01] LABS: INR 1.88; PROTHROMBIN TIME 21.4 SECONDS (11.8-14.0)
== END ==
PROVIDERS: ATTEND Family Medicine
DX: I48.91 Unspecified atrial fibrillation (principal)

== ENCOUNTER → 2019-04-15 | Outpatient (REF) ==
[2019-04-15 09:34] LABS: INR 1.87; PROTHROMBIN TIME 21.3 SECONDS (11.8-14.0)
== END ==
PROVIDERS: ATTEND Family Medicine
DX: I48.91 Unspecified atrial fibrillation (principal)

== ENCOUNTER → 2019-04-21 | Outpatient (CLI) | payer MEDICARE, MEDICAID ==
[~2019-04-21] MED LIST changes: +LEVA1TAB2 PO
--- NOTE | 2019-04-21 14:39 | REP ---
TWO-VIEW CHEST: REASON FOR EXAM: Preoperative screening. COMPARISON: FINDINGS: The superior mediastinal structures are midline. The cardiac silhouette is unremarkable in size, shape, and position. The diaphragmatic surfaces of the lungs are regular, and the costophrenic angles are clear. The pulmonary vigil are clear. The imaged osseous structures are intact. IMPRESSION: There is no acute cardiopulmonary disease. No significant change compared to the prior exam. Electronically Signed by Noe Lowry DO 04/21/2019 03:48 P
--- NOTE | 2019-04-21 15:07 | ECGEPIP ---
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
== END ==
LOC: M RAD 11:59
PROVIDERS: ATTEND Family Medicine
DX: Z01.818 Encounter for other preprocedural examination (principal)

== ENCOUNTER → 2019-04-22 | Outpatient (REF) ==
[~2019-04-22] MED LIST changes: -LEVA1TAB2 PO
[2019-04-22 08:56] LABS: BASO # 0.1 10^3/uL (0.0-0.2); BASO % 0.9 % (0.0-1.0); EOS # 0.3 10^3/uL (0.0-0.5); EOS % 3.3 % (0.0-3.0); HEMATOCRIT 36.7 % (42.0-52.0); HEMOGLOBIN 11.1 g/dl (13.5-17.5); LYMPH # 2.1 10^3/uL (1.5-5.0); MEAN CORPUSCULAR HEMOGLOBIN 25.9 pg (27.0-33.0); MEAN CORPUSCULAR HGB CONC 30.2 g/dl (32.0-36.5); MEAN CORPUSCULAR VOLUME 85.7 fl (80.0-96.0); MONO # 0.7 10^3/uL (0.0-0.8); MONO % 8.2 % (0.0-5.0); NEUTROPHILS # 4.8 10^3/uL (1.5-8.5); NEUTROPHILS % 60.5 % (36.0-66.0); PLATELET COUNT, AUTOMATED 174 10^3/uL (150-450); RED BLOOD COUNT 4.28 10^6/uL (4.30-6.10); WHITE BLOOD COUNT 7.9 10^3/uL (4.0-10.0)
[2019-04-22 09:22] LABS: INR 1.34; PROTHROMBIN TIME 16.3 SECONDS (11.8-14.0)
[2019-04-22 09:26] LABS: ALBUMIN 3.1 GM/DL (3.2-5.2); ALT/SGPT 12 U/L (12-78); BILIRUBIN,TOTAL 0.3 MG/DL (0.2-1.0); BLOOD UREA NITROGEN 23 MG/DL (7-18); CALCIUM LEVEL 9.1 MG/DL (8.8-10.2); CARBON DIOXIDE LEVEL 29 MEQ/L (21-32); CHLORIDE LEVEL 107 MEQ/L (98-107); CREATININE FOR GFR 1.04 MG/DL (0.70-1.30); GLOMERULAR FILTRATION RATE > 60.0 (>42); GLUCOSE, FASTING 86 MG/DL (70-100); POTASSIUM SERUM 4.8 MEQ/L (3.5-5.1); SODIUM LEVEL 141 MEQ/L (136-145); TOTAL PROTEIN 7.2 GM/DL (6.4-8.2)
[2019-04-22 13:47] LABS: AMORPHOUS SEDIMENT SMALL (NEGATIVE); APPEARANCE, URINE TURBID (CLEAR); BACTERIA, URINE AUTO 2+ (NEGATIVE); BILIRUBIN, URINE AUTO NEGATIVE (NEGATIVE); BLOOD, URINE BLOOD 1+ (NEGATIVE); COLOR, URINE YELLOW (YELLOW); GLUCOSE, URINE (UA) AUTO NEGATIVE (NEGATIVE); KETONE, URINE AUTO NEGATIVE (NEGATIVE); LEUKOCYTE ESTERASE, URINE AUTO 3+ (NEGATIVE); NITRITE, URINE AUTO POSITIVE (NEGATIVE); PROTEIN, URINE AUTO 2+ mg/dL (NEGATIVE); RBC, URINE AUTO 74 /HPF (0-3); SPECIFIC GRAVITY URINE AUTO 1.021 (1.002-1.035); SQUAMOUS EPITHELIAL CELL UR AU 0 /HPF (0-6); URIC ACID CRYSTALS SMALL; UROBILINOGEN, URINE AUTO 0.2 mg/dL (0.0-2.0); WBC, URINE AUTO TNTC /HPF (0-3)
== END ==
PROVIDERS: ATTEND Family Medicine
DX: Z01.812 Encounter for preprocedural laboratory examination (principal); Z79.899 Other long term (current) drug therapy

== ENCOUNTER → 2019-04-24 | Outpatient (REF) ==
[2019-04-24 12:04] LABS: INR 1.27; PROTHROMBIN TIME 15.7 SECONDS (11.8-14.0)
== END ==
PROVIDERS: ATTEND Family Medicine
DX: I48.91 Unspecified atrial fibrillation (principal)

== ENCOUNTER → 2019-04-29 | Outpatient (REF) ==
[~2019-04-29] MED LIST changes: +LEVA1TAB2 PO
[2019-04-29 10:03] LABS: HEMOGLOBIN 10.5 g/dl (13.5-17.5); MEAN CORPUSCULAR HEMOGLOBIN 26.5 pg (27.0-33.0); MEAN CORPUSCULAR HGB CONC 30.9 g/dl (32.0-36.5); MEAN CORPUSCULAR VOLUME 85.9 fl (80.0-96.0); PLATELET COUNT, AUTOMATED 134 10^3/uL (150-450); RED BLOOD COUNT 3.96 10^6/uL (4.30-6.10); WHITE BLOOD COUNT 6.4 10^3/uL (4.0-10.0)
[2019-04-29 10:17] LABS: INR 1.1; PROTHROMBIN TIME 13.9 SECONDS (11.8-14.0)
[2019-04-29 10:24] LABS: BLOOD UREA NITROGEN 23 MG/DL (7-18); CALCIUM LEVEL 8.6 MG/DL (8.8-10.2); CARBON DIOXIDE LEVEL 28 MEQ/L (21-32); CHLORIDE LEVEL 106 MEQ/L (98-107); CREATININE FOR GFR 1.04 MG/DL (0.70-1.30); GLOMERULAR FILTRATION RATE > 60.0 (>42); GLUCOSE, FASTING 115 MG/DL (70-100); POTASSIUM SERUM 4.3 MEQ/L (3.5-5.1); SODIUM LEVEL 140 MEQ/L (136-145)
== END ==
PROVIDERS: ATTEND Family Medicine
DX: I48.91 Unspecified atrial fibrillation (principal)

== ENCOUNTER 2019-04-30 12:23 | Day surgery (SDC) | payer MEDICARE, MEDICAID ==
[~2019-04-30] VITALS: Ht 177.8 cm; Wt 127.5 kg
[~2019-04-30 12:23] MED LIST changes: -LEVA1TAB2 PO; +LR 1,000 ML IV ONE; +LevoFLOXacin IV 500 MG in IV 1 EA IV ONE
[2019-04-30 13:11] LABS: INR 1.04; PROTHROMBIN TIME 13.3 SECONDS (11.8-14.0)
[2019-04-30] MEDS ORDERED: LEVA1TAB2 PO (13:14)
[2019-04-30] MEDS ORDERED: LIDOCAINE 1% SDV INJ 30 ML VIAL As Ordered ONE (14:01)
[2019-04-30] MEDS ORDERED: BUPIVACAINE HCL 0.25% 30 ML VIAL As Ordered ONE (14:02)
[2019-04-30] MEDS ORDERED: LIDOCAINE 2% INJ 100 MG/5 ML SDV (FOR ANES.) As Ordered ONE (15:23)
[2019-04-30] MEDS ORDERED: PROPOFOL 200 MG/20 ML VIAL As Ordered ONE ×4 (15:23→18:36)
[2019-04-30] MEDS ORDERED: dexameTHASONE 4 MG/ML 1ML VIAL (J1100) As Ordered ONE (15:24)
[2019-04-30] MEDS ORDERED: fentaNYL 100 MCG/2 ML INJECTION (J3010) As Ordered ONE (15:24)
[2019-04-30] MEDS ORDERED: ONDANSETRON 4MG/2ML VIAL (J2405) As Ordered ONE (15:24)
[2019-04-30] MEDS ORDERED: MIDAZOLAM INJ 2 MG/2 ML VIAL (J2250) As Ordered ONE (15:56)
[2019-04-30] MEDS ORDERED: BUPIVACAINE HCL 0.5% 30 ML VIAL As Ordered ONE (16:06)
[2019-04-30] MEDS ORDERED: KETAMINE HCL 200 MG/20 ML VIAL As Ordered ONE (16:37)
[2019-04-30] MEDS ORDERED: D5W/0.45% SODIUM CHLORIDE 1,000 ML IV SCH ×2 (16:45→19:15)
[2019-04-30] MEDS ORDERED: VASOPRESSIN INJ 20 UNITS/ML VIAL As Ordered ONE (16:56)
[2019-04-30] MEDS ORDERED: PHENYLephrine HCL 500 MCG/5 ML (100MCG/ML) SYRINGE (J2370) As Ordered ONE (16:57)
--- NOTE | 2019-04-30 19:14 | ROOPDOC ---
[facility] Report Of Operation Report of Operation DATE OF PROCEDURE: 04/30/19 PREPROCEDURE DIAGNOSIS: Urinary Retention. POSTPROCEDURE DIAGNOSIS: Urinary Retention. PROCEDURE: Open cystotomy with suprapubic catheter placement. SURGEON: Kenyetta Ybarra MD EQUITY RESEARCH ANALYST: None. ANESTHESIA: Spinal. OPERATIVE INDICATIONS: This is a 78-year-old male with urinary retention managed with a chronic indwelling catheter. He was brought to the operating room today for the above procedure. DESCRIPTION OF PROCEDURE: The patient was brought to the operating room and spinal anesthesia was administered. Prophylactic antibiotics were infused. He was placed in the supine position and prepped and draped in the usual sterile fashion. At this point, an 18Fr Harris catheter was inserted in the urethra and advanced into the bladder. The balloon was filled with 10mL of sterile water and the catheter was clamped off. At this point, an approximately 5-6 cm suprapubic incision was made. We then dissected down through the subcutaneous tissues. The rectus fascia was then opened using electrocautery and then the bellies of the rectus muscle were bluntly spread. At this point, the bladder was then filled with normal saline using the urethral catheter. At this point, we dissected down to the bladder. The bladder was then palpated and then a syringe was utilized to aspirate what appeared to be the bladder. And at this point, clear fluid did aspirate into the syringe. This confirmed we were indeed staring at the bladder. I then used a #3-[address] a pursestring stitch through the dome of the bladder. At this point, a cystotomy was then made in the middle of the pursestring stitch and then clear fluid drained out. I then inserted a #20-Italian catheter into the cystostomy and the balloon was filled with 7 mL of sterile water. The pursestring stitch was then tied down around the #20-Italian catheter. Once this was done, I then irrigated the pelvis around the bladder several times and then suctioned out the fluid. We then closed the rectus fascia with interrupted #1 non-looped PDS sutures in a [id number] fashion. Once the fascia was closed, the subcutaneous tissues were reapproximated using interrupted #3-0 Vicryl suture. The skin was then closed around the suprapubic catheter using a running #4-0 Monocryl subcuticular suture. The suprapubic catheter was then further secured to the skin with a #2-0 Prolene suture. At this point, Dermabond and dressings were applied, and this marked the conclusion of the procedure. The suprapubic catheter was connected to gravity drainage. The patient was then awakened from anesthesia and transported to the recovery room in stable condition. Estimated blood loss: 10 mL. Complications: None. Specimens: None. PLAN: The patient will follow up in clinic in 6 weeks for his first suprapubic catheter change. KENYETTA YBARRA MD Apr 30, 2019 19:14
[2019-04-30] MEDS ORDERED: fentaNYL 100 MCG/2 ML INJECTION (J3010) IV PRN (19:15)
[2019-04-30] MEDS ORDERED: ONDANSETRON 4MG/2ML VIAL (J2405) IV PRN (19:15)
[2019-04-30] MEDS ORDERED: PERCOCET 5MG/325MG TAB PO PRN (19:30)
[2019-04-30 21:30] VITALS: BP 151/68
== END 2019-04-30 23:10 | disposition home or self-care (01) ==
LOC: M SDC 12:23
PROVIDERS: ATTEND Urology
DX: R33.9 Retention of urine, unspecified (principal); I10 Essential (primary) hypertension; I48.91 Unspecified atrial fibrillation; I25.10 Atherosclerotic heart disease of native coronary artery without angina pectoris; I25.2 Old myocardial infarction; E78.5 Hyperlipidemia, unspecified; E11.9 Type 2 diabetes mellitus without complications; Z79.01 Long term (current) use of anticoagulants; Z79.4 Long term (current) use of insulin; J44.9 Chronic obstructive pulmonary disease, unspecified; Z79.899 Other long term (current) drug therapy; G47.30 Sleep apnea, unspecified; Z88.1 Allergy status to other antibiotic agents; Z88.8 Allergy status to other drugs, medicaments and biological substances
CPT/HCPCS: 36415; 51040; 85610; J1100; J1956; J2250; J2370; J2405; J3010

== ENCOUNTER → 2019-06-03 | Outpatient (REF) ==
[~2019-06-03] MED LIST changes: +LEVA1TAB2 PO; -LR 1,000 ML IV ONE; -LevoFLOXacin IV 500 MG in IV 1 EA IV ONE
[2019-06-03 09:54] LABS: MEAN CORPUSCULAR HEMOGLOBIN 25.9 pg (27.0-33.0); MEAN CORPUSCULAR HGB CONC 30.8 g/dl (32.0-36.5); MEAN CORPUSCULAR VOLUME 84.2 fl (80.0-96.0); PLATELET COUNT, AUTOMATED 173 10^3/uL (150-450); RED BLOOD COUNT 4.63 10^6/uL (4.30-6.10); WHITE BLOOD COUNT 9.7 10^3/uL (4.0-10.0)
[2019-06-03 10:20] LABS: BLOOD UREA NITROGEN 19 MG/DL (7-18); CARBON DIOXIDE LEVEL 27 MEQ/L (21-32); CHLORIDE LEVEL 106 MEQ/L (98-107); CREATININE FOR GFR 0.89 MG/DL (0.70-1.30); GLOMERULAR FILTRATION RATE > 60.0 (>42); GLUCOSE, FASTING 89 MG/DL (70-100); POTASSIUM SERUM 4.4 MEQ/L (3.5-5.1); SODIUM LEVEL 140 MEQ/L (136-145)
== END ==
PROVIDERS: ATTEND Family Medicine
DX: I48.91 Unspecified atrial fibrillation (principal)

== ENCOUNTER → 2019-06-16 | Outpatient (REF) ==
[2019-06-16 19:23] LABS: APPEARANCE, URINE MANUAL TURBID (CLEAR)
[2019-06-16 19:24] LABS: BILIRUBIN, URINE MANUAL NEGATIVE (NEGATIVE); COLOR, URINE MANUAL BROWN (YELLOW); GLUCOSE, URINE (UA) MANUAL NEGATIVE (NEGATIVE); KETONE, URINE MANUAL NEGATIVE (NEGATIVE); LEUKOCYTE ESTERASE, URINE MAN POSITIVE (NEGATIVE); NITRITE, URINE MANUAL NEGATIVE (NEGATIVE); PROTEIN, URINE MANUAL 3+ mg/dL (NEGATIVE); SPECIFIC GRAVITY,URINE MANUAL 1.025 (1.002-1.035); UROBILINOGEN, URINE MANUAL NORMAL (NORMAL)
[2019-06-16 19:25] LABS: BLOOD URINE MANUAL POSITIVE (NEGATIVE)
[2019-06-16 19:55] LABS: BACTERIA, URINE SMALL AMOUNT; CALCIUM OXALATE CRYSTALS,URINE SMALL AMOUNT /hpf; MUCUS, URINE SMALL AMOUNT (NEGATIVE); RBC, URINE TNTC /hpf (0-3); SQUAMOUS EPITHELIAL CELL URINE SMALL AMOUNT /hpf (SMALL AMT); TRANSITIONAL EPI CELLS, URINE SMALL AMOUNT /hpf; WBC, URINE TNTC /hpf (0-3)
[2019-06-16 19:57] LABS: AMORPHOUS SEDIMENT, URINE MOD AMOUNT (NEGATIVE); HYALINE CAST, URINE NONE SEEN /lpf (0-1)
== END ==
PROVIDERS: ATTEND Family Medicine
DX: R82.90 Unspecified abnormal findings in urine (principal)

== ENCOUNTER → 2019-06-19 | Outpatient (REF) ==
[2019-06-19 13:33] LABS: INFLUENZA A AMPLIFICATION NEGATIVE (NEGATIVE); INFLUENZA B AMPLIFICATION NEGATIVE (NEGATIVE)
== END ==
PROVIDERS: ATTEND Family Medicine
DX: M79.10 Myalgia, unspecified site (principal)

== ENCOUNTER → 2019-06-24 | Outpatient (REF) ==
[2019-06-24 11:45] LABS: HEMOGLOBIN A1c 6.2 %
== END ==
PROVIDERS: ATTEND Family Medicine
DX: G90.09 Other idiopathic peripheral autonomic neuropathy (principal)

== ENCOUNTER 2019-08-16 17:33 | Emergency (ER) | payer MEDICARE, MEDICAID ==
[~2019-08-16] VITALS: Ht 177.8 cm; Wt 126.4 kg
[~2019-08-16 17:33] MED LIST changes: -ARTIDRO2 OU; -OXYB10TA2 PO; +OXYB10TA23 PO; +POLYOPD OU
[2019-08-16] MEDS ORDERED: ASPE16CR TOP (18:15)
[2019-08-16] MEDS ORDERED: VITAD1000T PO (18:15)
[2019-08-16] MEDS ORDERED: GLUC1KIT IM (18:15)
[2019-08-16] MEDS ORDERED: ELIQ5TAB PO (18:15)
[2019-08-16 18:34] LABS: BASO % 0.4 % (0.0-1.0); EOS # 0.4 10^3/uL (0.0-0.5); EOS % 3.9 % (0.0-3.0); HEMATOCRIT 36.1 % (42.0-52.0); HEMOGLOBIN 10.8 g/dl (13.5-17.5); LYMPH # 2.2 10^3/uL (1.5-5.0); LYMPH % 24.7 % (24.0-44.0); MEAN CORPUSCULAR HEMOGLOBIN 26.1 pg (27.0-33.0); MEAN CORPUSCULAR HGB CONC 29.9 g/dl (32.0-36.5); MEAN CORPUSCULAR VOLUME 87.2 fl (80.0-96.0); MONO # 0.7 10^3/uL (0.0-0.8); MONO % 7.8 % (0.0-5.0); NEUTROPHILS # 5.6 10^3/uL (1.5-8.5); NEUTROPHILS % 62.9 % (36.0-66.0); PLATELET COUNT, AUTOMATED 170 10^3/uL (150-450); RED BLOOD COUNT 4.14 10^6/uL (4.30-6.10); WHITE BLOOD COUNT 8.9 10^3/uL (4.0-10.0)
[2019-08-16 18:49] LABS: INR 1.16; PROTHROMBIN TIME 14.5 SECONDS (11.8-14.0)
[2019-08-16 18:50] LABS: PARTIAL THROMBOPLASTIN TIME 35.3 SECONDS (25.0-38.4)
--- NOTE | 2019-08-16 18:52 | REP ---
Clinical: Chest pain . Comparison: 04/21/2019 . Findings: The mediastinum and cardiac silhouette are stable and within normal limits for portable technique. The lung vigil are clear without acute consolidation, effusion, or pneumothorax. Skeletal structures are intact. Impression: No acute cardiopulmonary process appreciated. Electronically Signed by Levi Johnson MD 08/16/2019 06:43 P
[2019-08-16] MEDS ORDERED: ISOVUE-370 76% 100ML VIAL (Q9967) As Ordered ONE (18:54)
[2019-08-16 19:09] LABS: ALBUMIN 2.8 GM/DL (3.2-5.2); ALT/SGPT 13 U/L (12-78); BILIRUBIN,DIRECT < 0.1 MG/DL (0.0-0.2); BILIRUBIN,TOTAL 0.3 MG/DL (0.2-1.0); CK-MB VALUE MASS < 1.0 NG/ML (<3.6); CPK CREATINE PHOSPHOKINASE 152 U/L (39-308); LIPASE 74 U/L (73-393); MAGNESIUM LEVEL 1.9 MG/DL (1.8-2.4); MB/CK RELATIVE INDEX 0.66 (< OR =4); NT-PRO BNP 80 PG/ML (<450); TOTAL PROTEIN 6.3 GM/DL (6.4-8.2); TROPONIN I < 0.02 NG/ML (< 0.10)
--- NOTE | 2019-08-16 19:20 | ECGEPIP ---
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
--- NOTE | 2019-08-16 20:22 | REPVR ---
PROCEDURE INFORMATION: Exam: CT Angiography Chest With Contrast Exam date and time: 08/16/2019 7:51 PM Age: 78 years old Clinical indication: Chest pain; Additional info: Chest pain, SOB, rlq pain TECHNIQUE: Imaging protocol: Computed tomographic angiography of the chest with intravenous contrast. 3D rendering: MIP and/or 3D reconstructed images were created by the technologist. Radiation optimization: All CT scans at this facility use at least one of these dose optimization techniques: automated exposure control; mA and/or kV adjustment per patient size (includes targeted exams where dose is matched to clinical indication); or iterative reconstruction. Contrast material: ISOVUE 370; Contrast volume: 100 ml; Contrast route: IV; COMPARISON: CT ANGIO CHEST 03/23/2018 3:38 PM FINDINGS: Pulmonary arteries: There are no pulmonary emboli. Aorta: The aorta demonstrates mild atherosclerotic calcification. There is no aortic dissection or aneurysm. Lungs: Small calcified granuloma right lower lobe. Pleural space: Unremarkable. No pneumothorax. No pleural effusion. Heart: There is mild atherosclerotic calcification of the coronary arteries. Lymph nodes: Unremarkable. No enlarged lymph nodes. Bones/joints: The spine demonstrates mild degenerative changes. Soft tissues: Unremarkable. IMPRESSION: 1. There is no aortic dissection or aneurysm. 2. There are no pulmonary emboli. 3. No acute pulmonary parenchymal abnormalities. 4. Findings consistent with remote intrathoracic granulomatous infection. Electronically signed by: Shiva Adam On 08/16/2019 20:22:04 PM
--- NOTE | 2019-08-16 20:28 | REPVR ---
PROCEDURE INFORMATION: Exam: CT Abdomen And Pelvis With Contrast Exam date and time: 08/16/2019 7:51 PM Age: 78 years old Clinical indication: Abdominal pain; Localized; Right lower quadrant (rlq); Additional info: Chest pain, SOB, rlq pain TECHNIQUE: Imaging protocol: Computed tomography of the abdomen and pelvis with intravenous contrast. Radiation optimization: All CT scans at this facility use at least one of these dose optimization techniques: automated exposure control; mA and/or kV adjustment per patient size (includes targeted exams where dose is matched to clinical indication); or iterative reconstruction. Contrast material: ISOVUE 370; Contrast volume: 100 ml; Contrast route: IV; COMPARISON: No relevant prior studies available. FINDINGS: Liver: There is a diffuse decrease in hepatic parenchymal density, consistent with steatosis. Gallbladder and bile ducts: Normal. No calcified stones. No ductal dilation. Pancreas: There is diffuse pancreatic atrophy. Spleen: Normal. No splenomegaly. Adrenals: Normal. No mass. Kidneys and ureters: Bilateral perinephric stranding likely chronic. Otherwise normal. No hydronephrosis. Stomach and bowel: Unremarkable. No obstruction. No mucosal thickening. Appendix: No evidence of appendicitis. Intraperitoneal space: Unremarkable. No free air. No significant fluid collection. Vasculature: The aorta demonstrates mild atherosclerotic calcification. Lymph nodes: Unremarkable. No enlarged lymph nodes. Bladder: Suprapubic catheter within a collapsed urinary bladder. Inflammatory changes demonstrated surrounding the urinary bladder, findings consistent with cystitis. Reproductive: Unremarkable as visualized. Bones/joints: The spine demonstrates moderate degenerative changes. Mild central spinal stenosis L2-L3, severe central spinal stenosis L3-L4 and L4-L5. Bilateral marked facet joint arthropathy L5-S1. Soft tissues: Unremarkable. Other findings: Osteoporosis. IMPRESSION: 1. There is a diffuse decrease in hepatic parenchymal density, consistent with steatosis. 2. There is diffuse pancreatic atrophy. 3. Suprapubic catheter within a collapsed urinary bladder. Inflammatory changes demonstrated surrounding the urinary bladder, findings consistent with cystitis. Electronically signed by: Shiva Adam On 08/16/2019 20:27:44 PM
[2019-08-16 21:53] VITALS: BP 159/89
[2019-08-16 23:36] LABS: CK-MB VALUE MASS < 1.0 NG/ML (<3.6); CPK CREATINE PHOSPHOKINASE 42 U/L (39-308); MB/CK RELATIVE INDEX 2.38 (< OR =4); TROPONIN I < 0.02 NG/ML (< 0.10)
--- NOTE | 2019-08-17 19:30 | ECGEPIP ---
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
== END 2019-08-17 01:01 | disposition home or self-care (01) ==
LOC: EDBD 17:33 → M ED 17:33
DX: R07.9 Chest pain, unspecified (principal); R10.9 Unspecified abdominal pain; R53.1 Weakness; R20.2 Paresthesia of skin; R94.31 Abnormal electrocardiogram [ECG] [EKG]; N32.89 Other specified disorders of bladder; M12.9 Arthropathy, unspecified; M48.061 Spinal stenosis, lumbar region without neurogenic claudication; M81.0 Age-related osteoporosis without current pathological fracture; K86.9 Disease of pancreas, unspecified; K76.0 Fatty (change of) liver, not elsewhere classified; I48.91 Unspecified atrial fibrillation; I11.0 Hypertensive heart disease with heart failure; E78.5 Hyperlipidemia, unspecified; G47.30 Sleep apnea, unspecified; E11.9 Type 2 diabetes mellitus without complications; F33.9 Major depressive disorder, recurrent, unspecified; Z87.19 Personal history of other diseases of the digestive system; Z88.1 Allergy status to other antibiotic agents; Z88.6 Allergy status to analgesic agent; Z88.8 Allergy status to other drugs, medicaments and biological substances; Z79.4 Long term (current) use of insulin; Z79.84 Long term (current) use of oral hypoglycemic drugs; Z79.899 Other long term (current) drug therapy
CPT/HCPCS: 36415; 71045; 71275; 74177; 80047; 80076; 81001; 82550; 82553; 83605; 83690; 83735; 83880; 84439; 84443; 84484; 85025; 85610; 85730; 87040; 87088; 87186; 93005; 93041; 99285; Q9967

== ENCOUNTER → 2019-09-03 | Outpatient (REF) | payer MEDICARE, MEDICAID ==
[~2019-09-03] MED LIST changes: +ASPE16CR TOP; +ELIQ5TAB PO; +GLUC1KIT IM; +VITAD1000T PO
== END ==
PROVIDERS: ATTEND Nurse Practitioner Family
DX: E11.9 Type 2 diabetes mellitus without complications (principal)

== ENCOUNTER → 2019-09-03 | Outpatient (REF) | payer MEDICARE, MEDICAID | PROVIDERS: ATTEND Nurse Practitioner Family | DX: Z86.79 Personal history of other diseases of the circulatory system (principal) ==

== ENCOUNTER → 2019-09-03 | Outpatient (REF) | payer MEDICARE, MEDICAID | PROVIDERS: ATTEND Nurse Practitioner Family | DX: R53.83 Other fatigue (principal) ==

== ENCOUNTER → 2019-09-03 | Outpatient (REF) | payer MEDICARE, MEDICAID | PROVIDERS: ATTEND Nurse Practitioner Family | DX: R07.9 Chest pain, unspecified (principal) ==

== ENCOUNTER → 2019-09-03 | Outpatient (REF) | payer MEDICARE, MEDICAID ==
[2019-09-03 11:23] LABS: HEMATOCRIT 36.4 % (42.0-52.0); HEMOGLOBIN 11.2 g/dl (13.5-17.5); MEAN CORPUSCULAR HEMOGLOBIN 26.5 pg (27.0-33.0); MEAN CORPUSCULAR HGB CONC 30.8 g/dl (32.0-36.5); MEAN CORPUSCULAR VOLUME 86.1 fl (80.0-96.0); PLATELET COUNT, AUTOMATED 182 10^3/uL (150-450); RED BLOOD COUNT 4.23 10^6/uL (4.30-6.10)
[2019-09-03 11:47] LABS: BLOOD UREA NITROGEN 23 MG/DL (7-18); CALCIUM LEVEL 9.1 MG/DL (8.8-10.2); CARBON DIOXIDE LEVEL 24 MEQ/L (21-32); CHLORIDE LEVEL 109 MEQ/L (98-107); CREATININE FOR GFR 0.92 MG/DL (0.70-1.30); GLOMERULAR FILTRATION RATE > 60.0 (>42); GLUCOSE, FASTING 117 MG/DL (70-100); POTASSIUM SERUM 4.4 MEQ/L (3.5-5.1); SODIUM LEVEL 140 MEQ/L (136-145)
== END ==
PROVIDERS: ATTEND Family Medicine
DX: I48.91 Unspecified atrial fibrillation (principal)

== ENCOUNTER → 2019-11-23 | Outpatient (REF) | PROVIDERS: ATTEND Internal Medicine | DX: Z03.818 Encounter for observation for suspected exposure to other biological agents ruled out (principal) ==

== ENCOUNTER → 2020-01-04 | Outpatient (REF) ==
[~2020-01-04] MED LIST changes: -COUM7.5T PO; +COUM7.5T6 PO
[2020-01-04 11:03] LABS: HEMOGLOBIN A1c 6.1 %
== END ==
PROVIDERS: ATTEND Family Medicine
DX: E11.9 Type 2 diabetes mellitus without complications (principal)

== ENCOUNTER → 2020-04-04 | Outpatient (REF) ==
[~2020-04-04] MED LIST changes: +D31000TA2 PO; +PANT40TA29 PO; -PANT40TA3 PO; -VITAD1000T PO
[2020-04-04 09:52] LABS: HEMATOCRIT 37.9 % (42.0-52.0); HEMOGLOBIN 11.8 g/dl (13.5-17.5); MEAN CORPUSCULAR HEMOGLOBIN 27.4 pg (27.0-33.0); MEAN CORPUSCULAR HGB CONC 31.1 g/dl (32.0-36.5); MEAN CORPUSCULAR VOLUME 88.1 fl (80.0-96.0); PLATELET COUNT, AUTOMATED 156 10^3/uL (150-450); WHITE BLOOD COUNT 7.7 10^3/uL (4.0-10.0)
[2020-04-04 10:20] LABS: BLOOD UREA NITROGEN 22 MG/DL (7-18); CALCIUM LEVEL 8.5 MG/DL (8.8-10.2); CARBON DIOXIDE LEVEL 26 MEQ/L (21-32); CHLORIDE LEVEL 108 MEQ/L (98-107); CREATININE FOR GFR 1.02 MG/DL (0.70-1.30); GLOMERULAR FILTRATION RATE > 60.0 (>42); GLUCOSE, FASTING 97 MG/DL (70-100); POTASSIUM SERUM 4.1 MEQ/L (3.5-5.1); SODIUM LEVEL 142 MEQ/L (136-145)
[2020-04-04 11:35] LABS: HEMOGLOBIN A1c 5.6 %
== END ==
PROVIDERS: ATTEND Internal Medicine
DX: E11.9 Type 2 diabetes mellitus without complications (principal)

== ENCOUNTER → 2020-05-19 | Outpatient (REF) | PROVIDERS: ATTEND Internal Medicine | DX: Z20.828 Contact with and (suspected) exposure to other viral communicable diseases (principal) ==

== ENCOUNTER → 2020-05-26 | Outpatient (REF) | payer MEDICARE, MEDICAID, OTHER ==
[~2020-05-26] MED LIST changes: +GABA-282 PO; -GABA-843 PO
== END ==
LOC: EDSTATUS 07-05 12:12
PROVIDERS: ATTEND Internal Medicine
DX: Z20.828 Contact with and (suspected) exposure to other viral communicable diseases (principal)

== ENCOUNTER → 2020-05-30 | Outpatient (REF) ==
[~2020-05-30] MED LIST changes: -GABA-282 PO; +GABA-843 PO
[2020-05-30 09:38] LABS: HEMATOCRIT 34.4 % (42.0-52.0); HEMOGLOBIN 10.4 g/dl (13.5-17.5); MEAN CORPUSCULAR HEMOGLOBIN 26.9 pg (27.0-33.0); MEAN CORPUSCULAR HGB CONC 30.2 g/dl (32.0-36.5); MEAN CORPUSCULAR VOLUME 88.9 fl (80.0-96.0); PLATELET COUNT, AUTOMATED 194 10^3/uL (150-450); RED BLOOD COUNT 3.87 10^6/uL (4.30-6.10); WHITE BLOOD COUNT 7.6 10^3/uL (4.0-10.0)
[2020-05-30 10:01] LABS: BLOOD UREA NITROGEN 26 MG/DL (7-18); CARBON DIOXIDE LEVEL 30 MEQ/L (21-32); CHLORIDE LEVEL 108 MEQ/L (98-107); CREATININE FOR GFR 1.05 MG/DL (0.70-1.30); GLOMERULAR FILTRATION RATE > 60.0 (>42); GLUCOSE, FASTING 115 MG/DL (70-100); POTASSIUM SERUM 4.8 MEQ/L (3.5-5.1); SODIUM LEVEL 142 MEQ/L (136-145)
== END ==
PROVIDERS: ATTEND Internal Medicine
DX: I48.91 Unspecified atrial fibrillation (principal)

== ENCOUNTER → 2020-06-01 | Outpatient (REF) | payer MEDICARE, MEDICAID ==
[~2020-06-01] MED LIST changes: +GABA-282 PO; -GABA-843 PO
== END ==
PROVIDERS: ATTEND Internal Medicine
DX: Z20.828 Contact with and (suspected) exposure to other viral communicable diseases (principal)

== ENCOUNTER → 2020-06-19 | Outpatient (REF) ==
[~2020-06-19] MED LIST changes: -GABA-282 PO; +GABA-843 PO
== END ==
PROVIDERS: ATTEND Internal Medicine
DX: Z20.828 Contact with and (suspected) exposure to other viral communicable diseases (principal)

== ENCOUNTER → 2020-06-23 | Outpatient (REF) ==
[~2020-06-23] MED LIST changes: +GABA-282 PO; -GABA-843 PO
== END ==
PROVIDERS: ATTEND Internal Medicine
DX: Z20.828 Contact with and (suspected) exposure to other viral communicable diseases (principal)

== ENCOUNTER → 2020-06-29 | Outpatient (REF) | PROVIDERS: ATTEND Internal Medicine | DX: Z20.828 Contact with and (suspected) exposure to other viral communicable diseases (principal) ==

== ENCOUNTER → 2020-07-05 | Outpatient (REF) | payer MEDICARE, MEDICAID | PROVIDERS: ATTEND Internal Medicine | DX: Z20.828 Contact with and (suspected) exposure to other viral communicable diseases (principal) ==

== ENCOUNTER → 2020-07-11 | Outpatient (REF) | payer MEDICARE, MEDICAID, OTHER | PROVIDERS: ATTEND Internal Medicine | DX: Z20.822 Contact with and (suspected) exposure to COVID-19 (principal) ==

== ENCOUNTER → 2020-07-15 | Outpatient (REF) | payer MEDICARE, MEDICAID, OTHER | PROVIDERS: ATTEND Internal Medicine | DX: Z20.822 Contact with and (suspected) exposure to COVID-19 (principal) ==

== ENCOUNTER → 2020-07-20 | Outpatient (REF) | payer MEDICARE, MEDICAID, OTHER | PROVIDERS: ATTEND Internal Medicine | DX: Z20.822 Contact with and (suspected) exposure to COVID-19 (principal) ==

== ENCOUNTER → 2020-07-27 | Outpatient (REF) | payer MEDICARE, MEDICAID, OTHER | PROVIDERS: ATTEND Internal Medicine | DX: Z20.822 Contact with and (suspected) exposure to COVID-19 (principal) ==

== ENCOUNTER → 2020-08-02 | Outpatient (REF) | payer MEDICARE, MEDICAID, OTHER ==
[2020-08-02 16:14] LABS: HEMOGLOBIN A1c 5.8 %
== END ==
PROVIDERS: ATTEND Internal Medicine
DX: E11.9 Type 2 diabetes mellitus without complications (principal)

== ENCOUNTER → 2020-08-03 | Outpatient (REF) | payer MEDICARE, MEDICAID, OTHER | PROVIDERS: ATTEND Internal Medicine | DX: Z20.822 Contact with and (suspected) exposure to COVID-19 (principal) ==

== ENCOUNTER → 2020-08-10 | Outpatient (REF) | payer MEDICARE, MEDICAID, OTHER | PROVIDERS: ATTEND Internal Medicine | DX: Z20.822 Contact with and (suspected) exposure to COVID-19 (principal) ==

== ENCOUNTER → 2020-08-17 | Outpatient (REF) | payer MEDICARE, MEDICAID, OTHER | PROVIDERS: ATTEND Internal Medicine | DX: Z20.822 Contact with and (suspected) exposure to COVID-19 (principal) ==

== ENCOUNTER → 2020-08-24 | Outpatient (REF) | payer MEDICARE, MEDICAID, OTHER | PROVIDERS: ATTEND Internal Medicine | DX: Z20.822 Contact with and (suspected) exposure to COVID-19 (principal) ==

== ENCOUNTER → 2020-08-29 | Outpatient (REF) | payer MEDICARE, MEDICAID, OTHER ==
[2020-08-29 11:59] LABS: HEMOGLOBIN 10.6 g/dl (13.5-17.5); MEAN CORPUSCULAR HEMOGLOBIN 26.5 pg (27.0-33.0); MEAN CORPUSCULAR HGB CONC 30.3 g/dl (32.0-36.5); MEAN CORPUSCULAR VOLUME 87.5 fl (80.0-96.0); PLATELET COUNT, AUTOMATED 165 10^3/uL (150-450); WHITE BLOOD COUNT 6.3 10^3/uL (4.0-10.0)
[2020-08-29 12:33] LABS: BLOOD UREA NITROGEN 23 MG/DL (7-18); CALCIUM LEVEL 8.8 MG/DL (8.8-10.2); CARBON DIOXIDE LEVEL 26 MEQ/L (21-32); CHLORIDE LEVEL 108 MEQ/L (98-107); CREATININE FOR GFR 1.04 MG/DL (0.70-1.30); GLOMERULAR FILTRATION RATE > 60.0 (>42); GLUCOSE, FASTING 126 MG/DL (70-100); POTASSIUM SERUM 4.2 MEQ/L (3.5-5.1); SODIUM LEVEL 142 MEQ/L (136-145)
== END ==
PROVIDERS: ATTEND Internal Medicine
DX: I48.91 Unspecified atrial fibrillation (principal); Z79.899 Other long term (current) drug therapy

== ENCOUNTER → 2020-08-31 | Outpatient (REF) | payer MEDICARE, MEDICAID, OTHER | PROVIDERS: ATTEND Internal Medicine | DX: Z20.822 Contact with and (suspected) exposure to COVID-19 (principal) ==

== ENCOUNTER → 2020-09-07 | Outpatient (REF) | payer MEDICARE, MEDICAID, OTHER ==
[~2020-09-07] MED LIST changes: +THEREMS-M1 TAB PO; -THERTAB12 PO
== END ==
PROVIDERS: ATTEND Internal Medicine
DX: Z20.822 Contact with and (suspected) exposure to COVID-19 (principal)

== ENCOUNTER → 2020-09-14 | Outpatient (REF) | payer MEDICARE, MEDICAID, OTHER | PROVIDERS: ATTEND Internal Medicine | DX: Z20.822 Contact with and (suspected) exposure to COVID-19 (principal) ==

== ENCOUNTER → 2020-09-29 | Outpatient (REF) | payer MEDICARE, MEDICAID, OTHER ==
[2020-09-29 10:12] LABS: HEMOGLOBIN A1c 6.2 %
== END ==
PROVIDERS: ATTEND Physician Assistant
DX: E11.9 Type 2 diabetes mellitus without complications (principal)

== ENCOUNTER → 2020-10-18 | Outpatient (REF) | payer MEDICARE, MEDICAID, OTHER | PROVIDERS: ATTEND Internal Medicine | DX: Z20.822 Contact with and (suspected) exposure to COVID-19 (principal) ==

== ENCOUNTER → 2020-12-29 | Outpatient (REF) | payer MEDICARE, MEDICAID, OTHER ==
[2020-12-29 19:48] LABS: HEMATOCRIT 35.9 % (42.0-52.0); MEAN CORPUSCULAR HEMOGLOBIN 27.7 pg (27.0-33.0); MEAN CORPUSCULAR HGB CONC 30.6 g/dl (32.0-36.5); MEAN CORPUSCULAR VOLUME 90.4 fl (80.0-96.0); PLATELET COUNT, AUTOMATED 168 10^3/uL (150-450); RED BLOOD COUNT 3.97 10^6/uL (4.30-6.10); WHITE BLOOD COUNT 8.9 10^3/uL (4.0-10.0)
[2020-12-29 20:13] LABS: BLOOD UREA NITROGEN 24 MG/DL (7-18); CALCIUM LEVEL 8.7 MG/DL (8.8-10.2); CARBON DIOXIDE LEVEL 26 MEQ/L (21-32); CHLORIDE LEVEL 111 MEQ/L (98-107); CK-MB VALUE MASS < 1.0 NG/ML (<3.6); CPK CREATINE PHOSPHOKINASE 38 U/L (39-308); CREATININE FOR GFR 0.91 MG/DL (0.70-1.30); GLOMERULAR FILTRATION RATE > 60.0 (>42); GLUCOSE, FASTING 85 MG/DL (70-100); MB/CK RELATIVE INDEX 2.63 (< OR =4); POTASSIUM SERUM 5.3 MEQ/L (3.5-5.1); SODIUM LEVEL 143 MEQ/L (136-145); TROPONIN I < 0.02 NG/ML (< 0.10)
== END ==
PROVIDERS: ATTEND Internal Medicine
DX: R07.9 Chest pain, unspecified (principal)

== ENCOUNTER → 2021-01-17 | Outpatient (REF) | payer MEDICARE, MEDICAID, OTHER ==
[2021-01-17 10:12] LABS: HEMOGLOBIN 11.6 g/dl (13.5-17.5); MEAN CORPUSCULAR HEMOGLOBIN 27.2 pg (27.0-33.0); MEAN CORPUSCULAR HGB CONC 30.5 g/dl (32.0-36.5); PLATELET COUNT, AUTOMATED 176 10^3/uL (150-450); RED BLOOD COUNT 4.27 10^6/uL (4.30-6.10); WHITE BLOOD COUNT 6.7 10^3/uL (4.0-10.0)
[2021-01-17 10:38] LABS: HEMOGLOBIN A1c 5.7 %
[2021-01-17 10:43] LABS: BLOOD UREA NITROGEN 22 MG/DL (7-18); CALCIUM LEVEL 8.9 MG/DL (8.8-10.2); CARBON DIOXIDE LEVEL 21 MEQ/L (21-32); CHLORIDE LEVEL 108 MEQ/L (98-107); CREATININE FOR GFR 1.02 MG/DL (0.70-1.30); GLOMERULAR FILTRATION RATE > 60.0 (>42); GLUCOSE, FASTING 114 MG/DL (70-100); POTASSIUM SERUM 4.6 MEQ/L (3.5-5.1); SODIUM LEVEL 137 MEQ/L (136-145)
== END ==
PROVIDERS: ATTEND Physician Assistant
DX: I48.91 Unspecified atrial fibrillation (principal); E11.9 Type 2 diabetes mellitus without complications

== ENCOUNTER → 2021-01-25 | Outpatient (REF) | payer MEDICARE, MEDICAID, OTHER ==
[2021-01-25 13:30] LABS: HEMOGLOBIN A1c 5.8 %
== END ==
PROVIDERS: ATTEND Internal Medicine
DX: E11.9 Type 2 diabetes mellitus without complications (principal)

== ENCOUNTER → 2021-02-25 | Outpatient (REF) | payer MEDICARE, MEDICAID ==
[2021-02-25 10:55] LABS: HEMATOCRIT 35.9 % (42.0-52.0); MEAN CORPUSCULAR HGB CONC 30.6 g/dl (32.0-36.5); PLATELET COUNT, AUTOMATED 166 10^3/uL (150-450); RED BLOOD COUNT 4.08 10^6/uL (4.30-6.10); WHITE BLOOD COUNT 6.4 10^3/uL (4.0-10.0)
[2021-02-25 11:24] LABS: ALBUMIN 3.4 GM/DL (3.2-5.2); BLOOD UREA NITROGEN 19 MG/DL (7-18); CALCIUM LEVEL 8.4 MG/DL (8.8-10.2); CARBON DIOXIDE LEVEL 26 MEQ/L (21-32); CHLORIDE LEVEL 107 MEQ/L (98-107); CREATININE FOR GFR 1.02 MG/DL (0.70-1.30); GLOMERULAR FILTRATION RATE > 60.0 (>42); GLUCOSE, FASTING 96 MG/DL (70-100); NT-PRO BNP 106 PG/ML (<450); PHOSPHORUS LEVEL 3.5 MG/DL (2.5-4.9); POTASSIUM SERUM 4.7 MEQ/L (3.5-5.1); SODIUM LEVEL 138 MEQ/L (136-145)
[2021-02-25 12:12] LABS: ALT/SGPT 18 U/L (12-78); BILIRUBIN,TOTAL 0.3 MG/DL (0.2-1.0); TOTAL PROTEIN 7.5 GM/DL (6.4-8.2)
== END ==
PROVIDERS: ATTEND Internal Medicine
DX: I50.9 Heart failure, unspecified (principal)

== ENCOUNTER → 2021-03-01 | Outpatient (REF) | payer MEDICARE, MEDICAID, OTHER ==
[2021-03-01 11:55] LABS: HEMATOCRIT 36.8 % (42.0-52.0); HEMOGLOBIN 11.3 g/dl (13.5-17.5); MEAN CORPUSCULAR HGB CONC 30.7 g/dl (32.0-36.5); MEAN CORPUSCULAR VOLUME 87.8 fl (80.0-96.0); PLATELET COUNT, AUTOMATED 174 10^3/uL (150-450); RED BLOOD COUNT 4.19 10^6/uL (4.30-6.10); WHITE BLOOD COUNT 6.9 10^3/uL (4.0-10.0)
[2021-03-01 12:26] LABS: BLOOD UREA NITROGEN 26 MG/DL (7-18); CALCIUM LEVEL 9.2 MG/DL (8.8-10.2); CARBON DIOXIDE LEVEL 25 MEQ/L (21-32); CHLORIDE LEVEL 106 MEQ/L (98-107); CREATININE FOR GFR 1.16 MG/DL (0.70-1.30); GLOMERULAR FILTRATION RATE > 60.0 (>42); GLUCOSE, FASTING 77 MG/DL (70-100); POTASSIUM SERUM 4.9 MEQ/L (3.5-5.1); SODIUM LEVEL 138 MEQ/L (136-145)
== END ==
PROVIDERS: ATTEND Physician Assistant
DX: I48.91 Unspecified atrial fibrillation (principal); E11.9 Type 2 diabetes mellitus without complications

== ENCOUNTER → 2021-03-08 | Outpatient (REF) | payer MEDICARE, MEDICAID ==
[2021-03-08 11:09] LABS: HEMATOCRIT 33.1 % (42.0-52.0); HEMOGLOBIN 10.1 g/dl (13.5-17.5); MEAN CORPUSCULAR HEMOGLOBIN 26.8 pg (27.0-33.0); MEAN CORPUSCULAR HGB CONC 30.5 g/dl (32.0-36.5); MEAN CORPUSCULAR VOLUME 87.8 fl (80.0-96.0); PLATELET COUNT, AUTOMATED 142 10^3/uL (150-450); RED BLOOD COUNT 3.77 10^6/uL (4.30-6.10); WHITE BLOOD COUNT 5.6 10^3/uL (4.0-10.0)
[2021-03-08 11:53] LABS: ALBUMIN 2.9 GM/DL (3.2-5.2); BLOOD UREA NITROGEN 24 MG/DL (7-18); CALCIUM LEVEL 8.8 MG/DL (8.8-10.2); CARBON DIOXIDE LEVEL 24 MEQ/L (21-32); CHLORIDE LEVEL 110 MEQ/L (98-107); CREATININE FOR GFR 1.04 MG/DL (0.70-1.30); GLOMERULAR FILTRATION RATE > 60.0 (>42); GLUCOSE, FASTING 98 MG/DL (70-100); NT-PRO BNP 59 PG/ML (<450); PHOSPHORUS LEVEL 3.7 MG/DL (2.5-4.9); POTASSIUM SERUM 5.1 MEQ/L (3.5-5.1); SODIUM LEVEL 139 MEQ/L (136-145)
== END ==
PROVIDERS: ATTEND Internal Medicine
DX: I11.0 Hypertensive heart disease with heart failure (principal)

== ENCOUNTER → 2021-03-29 | Outpatient (REF) | payer MEDICARE, MEDICAID, OTHER ==
[2021-03-29 11:15] LABS: HEMOGLOBIN A1c 5.9 %
== END ==
PROVIDERS: ATTEND Physician Assistant
DX: E11.9 Type 2 diabetes mellitus without complications (principal)

== ENCOUNTER → 2021-05-04 | Outpatient (REF) | payer MEDICARE, MEDICAID ==
[2021-05-04 10:10] LABS: HEMATOCRIT 35.5 % (42.0-52.0); HEMOGLOBIN 10.9 g/dl (13.5-17.5); MEAN CORPUSCULAR HEMOGLOBIN 26.2 pg (27.0-33.0); MEAN CORPUSCULAR HGB CONC 30.7 g/dl (32.0-36.5); MEAN CORPUSCULAR VOLUME 85.3 fl (80.0-96.0); PLATELET COUNT, AUTOMATED 265 10^3/uL (150-450); RED BLOOD COUNT 4.16 10^6/uL (4.30-6.10)
[2021-05-04 10:31] LABS: CALCIUM LEVEL 8.7 MG/DL (8.8-10.2); CREATININE FOR GFR 1.5 MG/DL (0.70-1.30); GLOMERULAR FILTRATION RATE 48.1 (>42); POTASSIUM SERUM 4.7 MEQ/L (3.5-5.1)
== END ==
PROVIDERS: ATTEND Internal Medicine
DX: E11.9 Type 2 diabetes mellitus without complications (principal)

== ENCOUNTER → 2021-05-06 | Outpatient (REF) | payer MEDICARE, MEDICAID | PROVIDERS: ATTEND Internal Medicine | DX: Z11.52 Encounter for screening for COVID-19 (principal); Z20.822 Contact with and (suspected) exposure to COVID-19 ==

== ENCOUNTER → 2021-05-06 | Outpatient (REF) | payer MEDICARE, MEDICAID | PROVIDERS: ATTEND Ophthalmology | DX: Z01.818 Encounter for other preprocedural examination (principal) ==

== ENCOUNTER → 2021-05-20 | Outpatient (REF) | payer MEDICARE, MEDICAID | PROVIDERS: ATTEND Internal Medicine | DX: Z20.822 Contact with and (suspected) exposure to COVID-19 (principal) ==

== ENCOUNTER → 2021-05-24 | Outpatient (REF) | payer MEDICARE, MEDICAID ==
[2021-05-24 11:38] LABS: HEMATOCRIT 36.3 % (42.0-52.0); HEMOGLOBIN 11.4 g/dl (13.5-17.5); MEAN CORPUSCULAR HEMOGLOBIN 27.2 pg (27.0-33.0); MEAN CORPUSCULAR HGB CONC 31.4 g/dl (32.0-36.5); MEAN CORPUSCULAR VOLUME 86.6 fl (80.0-96.0); PLATELET COUNT, AUTOMATED 144 10^3/uL (150-450); RED BLOOD COUNT 4.19 10^6/uL (4.30-6.10); WHITE BLOOD COUNT 6.3 10^3/uL (4.0-10.0)
[2021-05-24 12:14] LABS: CALCIUM LEVEL 9.2 MG/DL (8.8-10.2); CREATININE FOR GFR 1.25 MG/DL (0.70-1.30); GLOMERULAR FILTRATION RATE 59.3 (>42); POTASSIUM SERUM 4.3 MEQ/L (3.5-5.1)
== END ==
PROVIDERS: ATTEND Internal Medicine
DX: Z01.818 Encounter for other preprocedural examination (principal); Z79.899 Other long term (current) drug therapy

== ENCOUNTER → 2021-06-10 | Outpatient (REF) | payer MEDICARE, MEDICAID | PROVIDERS: ATTEND Ophthalmology | DX: Z01.818 Encounter for other preprocedural examination (principal); Z20.822 Contact with and (suspected) exposure to COVID-19 ==

== ENCOUNTER → 2021-06-12 | Outpatient (REF) | payer MEDICARE, MEDICAID | PROVIDERS: ATTEND Internal Medicine | DX: Z01.818 Encounter for other preprocedural examination (principal); Z20.822 Contact with and (suspected) exposure to COVID-19 ==

== ENCOUNTER → 2021-06-17 | Outpatient (REF) | payer MEDICARE, MEDICAID | PROVIDERS: ATTEND Internal Medicine | DX: Z01.818 Encounter for other preprocedural examination (principal); Z20.822 Contact with and (suspected) exposure to COVID-19 ==

== ENCOUNTER → 2021-07-05 | Outpatient (REF) | payer MEDICARE, MEDICAID ==
[2021-07-05 10:26] LABS: HEMOGLOBIN A1c 5.9 %
== END ==
PROVIDERS: ATTEND Internal Medicine
DX: E11.9 Type 2 diabetes mellitus without complications (principal)

== ENCOUNTER → 2021-08-30 | Outpatient (REF) | payer MEDICARE, MEDICAID ==
[~2021-08-30] MED LIST changes: -D31000TA2 PO; +VITA100093 PO
[2021-08-30 11:52] LABS: HEMATOCRIT 35.7 % (42.0-52.0); HEMOGLOBIN 11.2 g/dl (13.5-17.5); MEAN CORPUSCULAR HEMOGLOBIN 28.6 pg (27.0-33.0); MEAN CORPUSCULAR HGB CONC 31.4 g/dl (32.0-36.5); MEAN CORPUSCULAR VOLUME 91.3 fl (80.0-96.0); PLATELET COUNT, AUTOMATED 175 10^3/uL (150-450); RED BLOOD COUNT 3.91 10^6/uL (4.30-6.10); WHITE BLOOD COUNT 7.5 10^3/uL (4.0-10.0)
[2021-08-30 12:22] LABS: ALBUMIN 3.5 GM/DL (3.2-5.2); BILIRUBIN,TOTAL 0.3 MG/DL (0.2-1.0); CALCIUM LEVEL 9.2 MG/DL (8.8-10.2); CHOLESTEROL RISK RATIO 4.6 (<5); CREATININE FOR GFR 1.93 MG/DL (0.70-1.30); GLOMERULAR FILTRATION RATE 35.9 (>42); TOTAL PROTEIN 7.6 GM/DL (6.4-8.2)
== END ==
PROVIDERS: ATTEND Internal Medicine
DX: I11.9 Hypertensive heart disease without heart failure (principal)

== ENCOUNTER → 2021-09-09 | Outpatient (REF) | payer MEDICARE, MEDICAID | PROVIDERS: ATTEND Nurse Practitioner Primary Care | DX: Z01.818 Encounter for other preprocedural examination (principal); Z20.822 Contact with and (suspected) exposure to COVID-19 ==

== ENCOUNTER → 2021-09-25 | Outpatient (REF) | payer MEDICARE, MEDICAID ==
[2021-09-25 13:01] LABS: HEMATOCRIT 33.5 % (42.0-52.0); HEMOGLOBIN 10.6 g/dl (13.5-17.5); MEAN CORPUSCULAR HEMOGLOBIN 28.6 pg (27.0-33.0); MEAN CORPUSCULAR HGB CONC 31.6 g/dl (32.0-36.5); MEAN CORPUSCULAR VOLUME 90.5 fl (80.0-96.0); PLATELET COUNT, AUTOMATED 198 10^3/uL (150-450); WHITE BLOOD COUNT 7.3 10^3/uL (4.0-10.0)
[2021-09-25 13:54] LABS: CALCIUM LEVEL 8.6 MG/DL (8.8-10.2); CREATININE FOR GFR 1.79 MG/DL (0.70-1.30); GLOMERULAR FILTRATION RATE 39.2 (>42); POTASSIUM SERUM 4.7 MEQ/L (3.5-5.1)
[2021-09-25 14:59] LABS: HEMOGLOBIN A1c 5.5 %
== END ==
PROVIDERS: ATTEND Internal Medicine
DX: E11.9 Type 2 diabetes mellitus without complications (principal)

== ENCOUNTER → 2021-10-09 | Outpatient (REF) | payer MEDICARE, MEDICAID ==
[2021-10-09 13:23] LABS: CALCIUM LEVEL 8.7 MG/DL (8.8-10.2); CREATININE FOR GFR 2.41 MG/DL (0.70-1.30); GLOMERULAR FILTRATION RATE 27.8 (>42); POTASSIUM SERUM 5.7 MEQ/L (3.5-5.1)
== END ==
PROVIDERS: ATTEND Internal Medicine
DX: I50.9 Heart failure, unspecified (principal)

== ENCOUNTER → 2021-10-10 | Outpatient (REF) | payer MEDICARE, MEDICAID ==
[2021-10-10 14:30] LABS: CALCIUM LEVEL 8.5 MG/DL (8.8-10.2); CREATININE FOR GFR 2.57 MG/DL (0.70-1.30); GLOMERULAR FILTRATION RATE 25.8 (>42)
== END ==
PROVIDERS: ATTEND Internal Medicine
DX: I50.9 Heart failure, unspecified (principal)

== ENCOUNTER → 2021-10-11 | Outpatient (REF) | payer MEDICARE, MEDICAID ==
[2021-10-11 12:26] LABS: CALCIUM LEVEL 8.7 MG/DL (8.8-10.2); CREATININE FOR GFR 2.19 MG/DL (0.70-1.30); GLOMERULAR FILTRATION RATE 31.1 (>42); POTASSIUM SERUM 5.1 MEQ/L (3.5-5.1)
== END ==
PROVIDERS: ATTEND Internal Medicine
DX: N17.9 Acute kidney failure, unspecified (principal); I50.9 Heart failure, unspecified

== ENCOUNTER → 2021-10-12 | Outpatient (REF) | payer MEDICARE, MEDICAID ==
[2021-10-12 15:48] LABS: HEMATOCRIT 34.4 % (42.0-52.0); HEMOGLOBIN 11.1 g/dl (13.5-17.5); MEAN CORPUSCULAR HEMOGLOBIN 28.8 pg (27.0-33.0); MEAN CORPUSCULAR HGB CONC 32.3 g/dl (32.0-36.5); MEAN CORPUSCULAR VOLUME 89.4 fl (80.0-96.0); PLATELET COUNT, AUTOMATED 136 10^3/uL (150-450); RED BLOOD COUNT 3.85 10^6/uL (4.30-6.10); WHITE BLOOD COUNT 5.1 10^3/uL (4.0-10.0)
[2021-10-12 16:13] LABS: CALCIUM LEVEL 9.1 MG/DL (8.8-10.2); CREATININE FOR GFR 1.68 MG/DL (0.70-1.30); GLOMERULAR FILTRATION RATE 42.2 (>42); POTASSIUM SERUM 4.8 MEQ/L (3.5-5.1)
== END ==
PROVIDERS: ATTEND Internal Medicine
DX: I50.9 Heart failure, unspecified (principal)

== ENCOUNTER → 2021-12-06 | Outpatient (REF) | payer MEDICARE, MEDICAID | PROVIDERS: ATTEND Internal Medicine | DX: R52 Pain, unspecified (principal) ==

== ENCOUNTER → 2021-12-25 | Outpatient (REF) | payer MEDICARE, MEDICAID ==
[2021-12-25 11:46] LABS: HEMOGLOBIN A1c 5.5 %
[2021-12-25 11:51] LABS: CALCIUM LEVEL 9.1 MG/DL (8.8-10.2); CREATININE FOR GFR 1.56 MG/DL (0.70-1.30); GLOMERULAR FILTRATION RATE 45.8 (>35); PHOSPHORUS LEVEL 3.3 MG/DL (2.5-4.9); POTASSIUM SERUM 4.4 MEQ/L (3.5-5.1)
[2021-12-25 12:01] LABS: ALBUMIN 3.3 GM/DL (3.2-5.2); BILIRUBIN,TOTAL 0.3 MG/DL (0.2-1.0); CALCIUM LEVEL 9.4 MG/DL (8.8-10.2); CREATININE FOR GFR 1.53 MG/DL (0.70-1.30); GLOMERULAR FILTRATION RATE 46.9 (>35); PHOSPHORUS LEVEL 3.3 MG/DL (2.5-4.9); POTASSIUM SERUM 4.5 MEQ/L (3.5-5.1); TOTAL PROTEIN 7.3 GM/DL (6.4-8.2)
[2021-12-25 12:02] LABS: PTH INTACT 61.9 PG/ML (18.5-88.0)
[2021-12-25 12:08] LABS: PTH INTACT 62.2 PG/ML (18.5-88.0); TOTAL 25(OH) VITAMIN D 51.2 NG/ML (30.0-100.0)
[2021-12-25 15:42] LABS: MALB URINE SIEMENS 51.6 MG/L; MAU/CREAT RATIO 48.6 MCG/MG (0.0-30.0)
== END ==
PROVIDERS: ATTEND Internal Medicine
DX: R52 Pain, unspecified (principal); Z79.899 Other long term (current) drug therapy
CPT/HCPCS: 36415; 80048; 80053; 82043; 82306; 83036; 83970; 84100; G0103

== ENCOUNTER → 2021-12-26 | Outpatient (CLI) | payer MEDICARE, MEDICAID | LOC: M RAD 08:52 | PROVIDERS: ATTEND Nurse Practitioner Family | DX: M51.36 Other intervertebral disc degeneration, lumbar region (principal); M41.35 Thoracogenic scoliosis, thoracolumbar region; M25.78 Osteophyte, vertebrae; R10.11 Right upper quadrant pain; Z13.6 Encounter for screening for cardiovascular disorders ==

== ENCOUNTER → 2022-01-29 | Outpatient (REF) | payer MEDICARE, MEDICAID ==
[2022-01-29 11:21] LABS: BASO % 0.7 % (0.0-1.0); EOS # 0.3 10^3/uL (0.0-0.5); EOS % 6.8 % (0.0-3.0); HEMATOCRIT 30.2 % (42.0-52.0); HEMOGLOBIN 9.3 g/dl (13.5-17.5); LYMPH # 1.3 10^3/uL (1.5-5.0); LYMPH % 30.5 % (24.0-44.0); MEAN CORPUSCULAR HEMOGLOBIN 26.2 pg (27.0-33.0); MEAN CORPUSCULAR HGB CONC 30.8 g/dl (32.0-36.5); MEAN CORPUSCULAR VOLUME 85.1 fl (80.0-96.0); MONO # 0.5 10^3/uL (0.0-0.8); MONO % 11.7 % (2.0-8.0); NEUTROPHILS # 2.2 10^3/uL (1.5-8.5); NEUTROPHILS % 50.1 % (36.0-66.0); PLATELET COUNT, AUTOMATED 116 10^3/uL (150-450); RED BLOOD COUNT 3.55 10^6/uL (4.30-6.10); WHITE BLOOD COUNT 4.3 10^3/uL (4.0-10.0)
[2022-01-29 12:49] LABS: CALCIUM LEVEL 8.6 MG/DL (8.8-10.2); CREATININE FOR GFR 1.46 MG/DL (0.70-1.30); GLOMERULAR FILTRATION RATE 49.5 (>35)
== END ==
PROVIDERS: ATTEND Internal Medicine
DX: N18.9 Chronic kidney disease, unspecified (principal)

== ENCOUNTER → 2022-03-28 | Outpatient (REF) | payer MEDICARE, MEDICAID ==
[2022-03-28 12:25] LABS: HEMATOCRIT 31.1 % (42.0-52.0); HEMOGLOBIN 9.4 g/dl (13.5-17.5); MEAN CORPUSCULAR HEMOGLOBIN 25.8 pg (27.0-33.0); MEAN CORPUSCULAR HGB CONC 30.2 g/dl (32.0-36.5); MEAN CORPUSCULAR VOLUME 85.2 fl (80.0-96.0); PLATELET COUNT, AUTOMATED 139 10^3/uL (150-450); RED BLOOD COUNT 3.65 10^6/uL (4.30-6.10); WHITE BLOOD COUNT 5.5 10^3/uL (4.0-10.0)
[2022-03-28 13:23] LABS: CALCIUM LEVEL 8.6 MG/DL (8.8-10.2); CREATININE FOR GFR 1.61 MG/DL (0.70-1.30); GLOMERULAR FILTRATION RATE 44.2 (>35); POTASSIUM SERUM 4.7 MEQ/L (3.5-5.1)
[2022-03-28 14:19] LABS: HEMOGLOBIN A1c 6.1 %
== END ==
PROVIDERS: ATTEND Internal Medicine
DX: N17.9 Acute kidney failure, unspecified (principal); Z79.899 Other long term (current) drug therapy

== ENCOUNTER → 2022-04-24 | Outpatient (REF) | payer MEDICARE, MEDICAID ==
[2022-04-24 16:40] LABS: BASO # 0.1 10^3/uL (0.0-0.2); BASO % 0.8 % (0.0-1.0); EOS # 0.6 10^3/uL (0.0-0.5); HEMATOCRIT 34.9 % (42.0-52.0); HEMOGLOBIN 10.2 g/dl (13.5-17.5); LYMPH # 1.8 10^3/uL (1.5-5.0); LYMPH % 26.4 % (24.0-44.0); MEAN CORPUSCULAR HEMOGLOBIN 25.4 pg (27.0-33.0); MEAN CORPUSCULAR HGB CONC 29.2 g/dl (32.0-36.5); MONO # 0.7 10^3/uL (0.0-0.8); MONO % 11.1 % (2.0-8.0); NEUTROPHILS # 3.5 10^3/uL (1.5-8.5); NEUTROPHILS % 52.4 % (36.0-66.0); PLATELET COUNT, AUTOMATED 152 10^3/uL (150-450); RED BLOOD COUNT 4.01 10^6/uL (4.30-6.10); WHITE BLOOD COUNT 6.6 10^3/uL (4.0-10.0)
[2022-04-24 17:29] LABS: ALBUMIN 3.4 GM/DL (3.2-5.2); BILIRUBIN,TOTAL 0.2 MG/DL (0.2-1.0); CALCIUM LEVEL 8.6 MG/DL (8.8-10.2); CREATININE FOR GFR 1.93 MG/DL (0.70-1.30); GLOMERULAR FILTRATION RATE 35.8 (>35); POTASSIUM SERUM 4.3 MEQ/L (3.5-5.1); THYROID STIMULATING HORMONE 2.61 uIU/ML (0.358-3.740); TOTAL PROTEIN 7.5 GM/DL (6.4-8.2)
== END ==
PROVIDERS: ATTEND Internal Medicine
DX: R41.82 Altered mental status, unspecified (principal)

== ENCOUNTER → 2022-04-26 | Outpatient (REF) | payer MEDICARE, MEDICAID | PROVIDERS: ATTEND Internal Medicine | DX: R05.9 Cough, unspecified (principal) ==

== ENCOUNTER → 2022-04-30 | Outpatient (REF) | payer MEDICARE, MEDICAID ==
[2022-04-30 10:21] LABS: CALCIUM LEVEL 9.1 MG/DL (8.8-10.2); CREATININE FOR GFR 1.37 MG/DL (0.70-1.30); GLOMERULAR FILTRATION RATE 53.2 (>35); POTASSIUM SERUM 4.4 MEQ/L (3.5-5.1)
== END ==
PROVIDERS: ATTEND Internal Medicine
DX: N18.9 Chronic kidney disease, unspecified (principal)

== ENCOUNTER → 2022-05-21 | Outpatient (REF) | payer MEDICARE, MEDICAID ==
[2022-05-21 13:09] LABS: PTH INTACT 82.4 PG/ML (18.5-88.0)
== END ==
PROVIDERS: ATTEND Internal Medicine
DX: N18.9 Chronic kidney disease, unspecified (principal)

== ENCOUNTER → 2022-06-25 | Outpatient (REF) | payer MEDICARE, MEDICAID ==
[2022-06-25 11:57] LABS: HEMOGLOBIN A1c 6.2 % (4.0-6.0)
== END ==
PROVIDERS: ATTEND Internal Medicine
DX: I51.9 Heart disease, unspecified (principal); Z79.899 Other long term (current) drug therapy

== ENCOUNTER → 2022-07-14 | Outpatient (REF) | payer MEDICARE, MEDICAID ==
[2022-07-14 18:15] LABS: BASO % 0.5 % (0.0-1.0); EOS # 0.3 10^3/uL (0.0-0.5); EOS % 5.1 % (0.0-3.0); HEMATOCRIT 31.3 % (42.0-52.0); HEMOGLOBIN 9.5 g/dl (13.5-17.5); LYMPH # 1.7 10^3/uL (1.5-5.0); LYMPH % 26.6 % (24.0-44.0); MEAN CORPUSCULAR HEMOGLOBIN 25.5 pg (27.0-33.0); MEAN CORPUSCULAR HGB CONC 30.4 g/dl (32.0-36.5); MEAN CORPUSCULAR VOLUME 84.1 fl (80.0-96.0); MONO # 0.9 10^3/uL (0.0-0.8); MONO % 14.1 % (2.0-8.0); NEUTROPHILS # 3.5 10^3/uL (1.5-8.5); NEUTROPHILS % 53.4 % (36.0-66.0); PLATELET COUNT, AUTOMATED 147 10^3/uL (150-450); RED BLOOD COUNT 3.72 10^6/uL (4.30-6.10); WHITE BLOOD COUNT 6.5 10^3/uL (4.0-10.0)
[2022-07-14 18:16] LABS: CALCIUM LEVEL 8.5 MG/DL (8.3-10.6); CREATININE FOR GFR 1.31 MG/DL (0.70-1.30); POTASSIUM SERUM 4.7 MMOL/L (3.5-5.1)
== END ==
PROVIDERS: ATTEND Internal Medicine
DX: R07.9 Chest pain, unspecified (principal)

== ENCOUNTER → 2022-09-26 | Outpatient (REF) | payer MEDICARE, MEDICAID ==
[2022-09-26 11:11] LABS: HEMATOCRIT 34.5 % (42.0-52.0); MEAN CORPUSCULAR HEMOGLOBIN 24.2 pg (27.0-33.0); MEAN CORPUSCULAR VOLUME 83.3 fl (80.0-96.0); PLATELET COUNT, AUTOMATED 168 10^3/uL (150-450); RED BLOOD COUNT 4.14 10^6/uL (4.30-6.10); WHITE BLOOD COUNT 7.1 10^3/uL (4.0-10.0)
[2022-09-26 11:45] LABS: BLOOD UREA NITROGEN 27 MG/DL (9-23); CALCIUM LEVEL 8.9 MG/DL (8.3-10.6); CARBON DIOXIDE LEVEL 26 MMOL/L (20-31); CHLORIDE LEVEL 101 MMOL/L (98-107); CREATININE FOR GFR 1.21 MG/DL (0.70-1.30); GLOMERULAR FILTRATION RATE > 60.0 (>35); GLUCOSE, FASTING 152 MG/DL (74-106); MAGNESIUM LEVEL 1.7 MG/DL (1.8-2.4); POTASSIUM SERUM 5.2 MMOL/L (3.5-5.1); SODIUM LEVEL 136 MMOL/L (136-145)
== END ==
PROVIDERS: ATTEND Internal Medicine
DX: E83.42 Hypomagnesemia (principal)

== ENCOUNTER → 2022-10-19 | Outpatient (REF) | payer MEDICARE, MEDICAID ==
[~2022-10-19] MED LIST changes: +ARTIDRO4 OU; -ASPE16CR TOP; +LIDO76.52 TOP; -POLYOPD OU
== END ==
PROVIDERS: ATTEND Internal Medicine
DX: R05.9 Cough, unspecified (principal)

== ENCOUNTER → 2022-10-30 | Outpatient (REF) | payer MEDICARE, MEDICAID | PROVIDERS: ATTEND Internal Medicine | DX: R05.9 Cough, unspecified (principal) ==

== ENCOUNTER → 2022-10-30 | Outpatient (REF) | payer MEDICARE, MEDICAID | PROVIDERS: ATTEND Internal Medicine | DX: R05.9 Cough, unspecified (principal) ==

== ENCOUNTER → 2022-12-20 | Outpatient (CLI) | payer MEDICARE, MEDICAID | LOC: M RAD 14:29 | PROVIDERS: ATTEND Nurse Practitioner Family | DX: I74.3 Embolism and thrombosis of arteries of the lower extremities (principal) ==

== ENCOUNTER → 2022-12-24 | Outpatient (REF) | payer MEDICARE, MEDICAID ==
[2022-12-24 08:32] LABS: HEMATOCRIT 33.7 % (42.0-52.0); MEAN CORPUSCULAR HGB CONC 29.7 g/dl (32.0-36.5); MEAN CORPUSCULAR VOLUME 84.3 fl (80.0-96.0); PLATELET COUNT, AUTOMATED 158 10^3/uL (150-450); WHITE BLOOD COUNT 7.2 10^3/uL (4.0-10.0)
[2022-12-24 08:45] LABS: HEMOGLOBIN A1c 7.8 % (4.0-6.0)
[2022-12-24 09:03] LABS: BLOOD UREA NITROGEN 26 MG/DL (9-23); CALCIUM LEVEL 9.4 MG/DL (8.3-10.6); CARBON DIOXIDE LEVEL 26 MMOL/L (20-31); CHLORIDE LEVEL 104 MMOL/L (98-107); CREATININE FOR GFR 1.23 MG/DL (0.70-1.30); GLOMERULAR FILTRATION RATE > 60.0 (>35); GLUCOSE, FASTING 138 MG/DL (74-106); MAGNESIUM LEVEL 1.6 MG/DL (1.8-2.4); PHOSPHORUS LEVEL 3.6 MG/DL (2.4-5.1); POTASSIUM SERUM 4.9 MMOL/L (3.5-5.1); PTH INTACT 100.5 PG/ML (18.5-88.0); SODIUM LEVEL 136 MMOL/L (136-145)
== END ==
PROVIDERS: ATTEND Internal Medicine
DX: N18.9 Chronic kidney disease, unspecified (principal); Z79.899 Other long term (current) drug therapy

== ENCOUNTER → 2023-04-11 | Outpatient (REF) | payer MEDICARE, MEDICAID | PROVIDERS: ATTEND Internal Medicine | DX: R05.9 Cough, unspecified (principal) ==

== ENCOUNTER → 2023-04-15 | Outpatient (REF) | payer MEDICARE, MEDICAID ==
[2023-04-15 11:02] LABS: BASO % 0.1 % (0.0-1.0); HEMATOCRIT 35.4 % (42.0-52.0); HEMOGLOBIN 10.8 g/dl (13.5-17.5); LYMPH # 1.3 10^3/uL (1.5-5.0); LYMPH % 14.9 % (24.0-44.0); MEAN CORPUSCULAR HEMOGLOBIN 25.5 pg (27.0-33.0); MEAN CORPUSCULAR HGB CONC 30.5 g/dl (32.0-36.5); MEAN CORPUSCULAR VOLUME 83.7 fl (80.0-96.0); MONO # 0.8 10^3/uL (0.0-0.8); MONO % 8.9 % (2.0-8.0); NEUTROPHILS # 6.6 10^3/uL (1.5-8.5); NEUTROPHILS % 75.6 % (36.0-66.0); PLATELET COUNT, AUTOMATED 222 10^3/uL (150-450); RED BLOOD COUNT 4.23 10^6/uL (4.30-6.10); WHITE BLOOD COUNT 8.7 10^3/uL (4.0-10.0)
[2023-04-15 11:35] LABS: ALBUMIN 3.4 G/DL (3.2-5.2); ALKALINE PHOSPHATASE 125 U/L (46-116); ALT/SGPT 15 U/L (7.0-40); AST/SGOT 13 U/L (<34); BILIRUBIN,TOTAL 0.3 MG/DL (0.3-1.2); BLOOD UREA NITROGEN 27 MG/DL (9-23); CALCIUM LEVEL 8.9 MG/DL (8.3-10.6); CARBON DIOXIDE LEVEL 24 MMOL/L (20-31); CHLORIDE LEVEL 104 MMOL/L (98-107); GLOMERULAR FILTRATION RATE > 60.0 (>35); GLUCOSE, FASTING 215 MG/DL (74-106); POTASSIUM SERUM 4.4 MMOL/L (3.5-5.1); SODIUM LEVEL 137 MMOL/L (136-145); TOTAL PROTEIN 7.2 G/DL (5.7-8.2)
== END ==
PROVIDERS: ATTEND Internal Medicine
DX: R05.9 Cough, unspecified (principal); Z79.899 Other long term (current) drug therapy

== ENCOUNTER → 2023-04-17 | Outpatient (REF) | payer MEDICARE, MEDICAID ==
[2023-04-17 11:28] LABS: BASO % 0.1 % (0.0-1.0); HEMATOCRIT 35.2 % (42.0-52.0); HEMOGLOBIN 10.8 g/dl (13.5-17.5); LYMPH # 0.9 10^3/uL (1.5-5.0); LYMPH % 13.3 % (24.0-44.0); MEAN CORPUSCULAR HEMOGLOBIN 25.8 pg (27.0-33.0); MEAN CORPUSCULAR HGB CONC 30.7 g/dl (32.0-36.5); MEAN CORPUSCULAR VOLUME 84.2 fl (80.0-96.0); MONO # 0.4 10^3/uL (0.0-0.8); MONO % 5.2 % (2.0-8.0); NEUTROPHILS # 5.5 10^3/uL (1.5-8.5); NEUTROPHILS % 80.1 % (36.0-66.0); PLATELET COUNT, AUTOMATED 199 10^3/uL (150-450); RED BLOOD COUNT 4.18 10^6/uL (4.30-6.10); WHITE BLOOD COUNT 6.9 10^3/uL (4.0-10.0)
[2023-04-17 11:49] LABS: ALBUMIN 3.3 G/DL (3.2-5.2); ALKALINE PHOSPHATASE 118 U/L (46-116); ALT/SGPT 9 U/L (7.0-40); AST/SGOT 10 U/L (<34); BILIRUBIN,TOTAL 0.3 MG/DL (0.3-1.2); BLOOD UREA NITROGEN 36 MG/DL (9-23); CALCIUM LEVEL 8.7 MG/DL (8.3-10.6); CARBON DIOXIDE LEVEL 26 MMOL/L (20-31); CHLORIDE LEVEL 102 MMOL/L (98-107); CREATININE FOR GFR 1.21 MG/DL (0.70-1.30); GLOMERULAR FILTRATION RATE > 60.0 (>35); GLUCOSE, FASTING 232 MG/DL (74-106); POTASSIUM SERUM 4.8 MMOL/L (3.5-5.1); SODIUM LEVEL 138 MMOL/L (136-145)
== END ==
PROVIDERS: ATTEND Internal Medicine
DX: R05.9 Cough, unspecified (principal)

== ENCOUNTER → 2023-05-01 | Outpatient (REF) | payer MEDICARE, MEDICAID ==
[2023-05-01 11:43] LABS: BASO % 0.9 % (0.0-1.0); EOS # 0.2 10^3/uL (0.0-0.5); EOS % 4.8 % (0.0-3.0); HEMATOCRIT 35.3 % (42.0-52.0); HEMOGLOBIN 10.6 g/dl (13.5-17.5); LYMPH # 1.1 10^3/uL (1.5-5.0); LYMPH % 23.2 % (24.0-44.0); MEAN CORPUSCULAR HEMOGLOBIN 25.9 pg (27.0-33.0); MEAN CORPUSCULAR VOLUME 86.1 fl (80.0-96.0); MONO # 0.7 10^3/uL (0.0-0.8); NEUTROPHILS # 2.5 10^3/uL (1.5-8.5); NEUTROPHILS % 54.9 % (36.0-66.0); PLATELET COUNT, AUTOMATED 178 10^3/uL (150-450); WHITE BLOOD COUNT 4.6 10^3/uL (4.0-10.0)
[2023-05-01 12:09] LABS: ALBUMIN 3.2 G/DL (3.2-5.2); ALKALINE PHOSPHATASE 114 U/L (46-116); ALT/SGPT 10 U/L (7.0-40); AST/SGOT 15 U/L (<34); BILIRUBIN,TOTAL 0.3 MG/DL (0.3-1.2); BLOOD UREA NITROGEN 13 MG/DL (9-23); CALCIUM LEVEL 8.9 MG/DL (8.3-10.6); CARBON DIOXIDE LEVEL 24 MMOL/L (20-31); CHLORIDE LEVEL 105 MMOL/L (98-107); CREATININE FOR GFR 1.18 MG/DL (0.70-1.30); GLOMERULAR FILTRATION RATE > 60.0 (>35); GLUCOSE, FASTING 118 MG/DL (74-106); POTASSIUM SERUM 4.3 MMOL/L (3.5-5.1); SODIUM LEVEL 138 MMOL/L (136-145); TOTAL PROTEIN 6.7 G/DL (5.7-8.2)
== END ==
PROVIDERS: ATTEND Internal Medicine
DX: I50.9 Heart failure, unspecified (principal)

== ENCOUNTER → 2023-06-24 | Outpatient (REF) | payer MEDICARE, MEDICAID ==
[2023-06-24 11:09] LABS: HEMATOCRIT 35.2 % (42.0-52.0); HEMOGLOBIN 10.8 g/dl (13.5-17.5); MEAN CORPUSCULAR HEMOGLOBIN 26.7 pg (27.0-33.0); MEAN CORPUSCULAR HGB CONC 30.7 g/dl (32.0-36.5); MEAN CORPUSCULAR VOLUME 86.9 fl (80.0-96.0); PLATELET COUNT, AUTOMATED 160 10^3/uL (150-450); RED BLOOD COUNT 4.05 10^6/uL (4.30-6.10); WHITE BLOOD COUNT 6.1 10^3/uL (4.0-10.0)
[2023-06-24 11:27] LABS: BLOOD UREA NITROGEN 20 MG/DL (9-23); CALCIUM LEVEL 8.8 MG/DL (8.3-10.6); CARBON DIOXIDE LEVEL 24 MMOL/L (20-31); CHLORIDE LEVEL 106 MMOL/L (98-107); CREATININE FOR GFR 1.16 MG/DL (0.70-1.30); GLOMERULAR FILTRATION RATE > 60.0 (>35); GLUCOSE, FASTING 149 MG/DL (74-106); POTASSIUM SERUM 4.7 MMOL/L (3.5-5.1); SODIUM LEVEL 138 MMOL/L (136-145)
[2023-06-24 11:47] LABS: HEMOGLOBIN A1c 6.1 % (4.0-6.0)
== END ==
PROVIDERS: ATTEND Internal Medicine
DX: N18.9 Chronic kidney disease, unspecified (principal); Z79.899 Other long term (current) drug therapy

== ENCOUNTER → 2023-06-26 | Outpatient (REF) | payer MEDICARE, MEDICAID | PROVIDERS: ATTEND Internal Medicine | DX: Z53.8 Procedure and treatment not carried out for other reasons (principal) ==

== ENCOUNTER → 2023-09-23 | Outpatient (REF) | payer MEDICARE, MEDICAID ==
[~2023-09-23] MED LIST changes: -BISA10SU20 PR; +BISA10SU59 PR
[2023-09-23 12:39] LABS: HEMATOCRIT 37.6 % (42.0-52.0); HEMOGLOBIN 11.9 g/dl (13.5-17.5); MEAN CORPUSCULAR HEMOGLOBIN 27.9 pg (27.0-33.0); MEAN CORPUSCULAR HGB CONC 31.6 g/dl (32.0-36.5); MEAN CORPUSCULAR VOLUME 88.3 fl (80.0-96.0); PLATELET COUNT, AUTOMATED 167 10^3/uL (150-450); RED BLOOD COUNT 4.26 10^6/uL (4.30-6.10); WHITE BLOOD COUNT 8.7 10^3/uL (4.0-10.0)
[2023-09-23 13:03] LABS: BLOOD UREA NITROGEN 23 MG/DL (9-23); CALCIUM LEVEL 8.7 MG/DL (8.3-10.6); CARBON DIOXIDE LEVEL 24 MMOL/L (20-31); CHLORIDE LEVEL 107 MMOL/L (98-107); GLOMERULAR FILTRATION RATE > 60.0 (>35); GLUCOSE, FASTING 97 MG/DL (74-106); POTASSIUM SERUM 4.5 MMOL/L (3.5-5.1); SODIUM LEVEL 138 MMOL/L (136-145)
== END ==
PROVIDERS: ATTEND Internal Medicine
DX: I48.91 Unspecified atrial fibrillation (principal)

== ENCOUNTER → 2023-11-11 | Outpatient (REF) | payer MEDICARE, MEDICAID | PROVIDERS: ATTEND Internal Medicine | DX: R05.9 Cough, unspecified (principal) ==

== ENCOUNTER → 2023-12-25 | Outpatient (REF) | payer MEDICARE, MEDICAID ==
[2023-12-25 10:07] LABS: HEMATOCRIT 40.6 % (42.0-52.0); HEMOGLOBIN 13.3 g/dl (13.5-17.5); MEAN CORPUSCULAR HGB CONC 32.8 g/dl (32.0-36.5); MEAN CORPUSCULAR VOLUME 91.4 fl (80.0-96.0); PLATELET COUNT, AUTOMATED 141 10^3/uL (150-450); RED BLOOD COUNT 4.44 10^6/uL (4.30-6.10); WHITE BLOOD COUNT 10.1 10^3/uL (4.0-10.0)
[2023-12-25 10:25] LABS: HEMOGLOBIN A1c 5.8 % (4.0-6.0)
[2023-12-25 10:31] LABS: MAGNESIUM LEVEL 1.8 MG/DL (1.8-2.4); PHOSPHORUS LEVEL 3.4 MG/DL (2.4-5.1)
[2023-12-25 10:34] LABS: TOTAL 25(OH) VITAMIN D 42.1 NG/ML (20.0-100.0)
[2023-12-25 10:36] LABS: PTH INTACT 77.9 PG/ML (18.5-88.0)
== END ==
PROVIDERS: ATTEND Internal Medicine
DX: N18.9 Chronic kidney disease, unspecified (principal); Z79.899 Other long term (current) drug therapy

== ENCOUNTER → 2024-03-30 | Outpatient (REF) | payer MEDICARE, MEDICAID ==
[2024-03-30 12:53] LABS: HEMATOCRIT 42.2 % (42.0-52.0); HEMOGLOBIN 13.7 g/dl (13.5-17.5); MEAN CORPUSCULAR HEMOGLOBIN 31.8 pg (27.0-33.0); MEAN CORPUSCULAR HGB CONC 32.5 g/dl (32.0-36.5); MEAN CORPUSCULAR VOLUME 97.9 fl (80.0-96.0); PLATELET COUNT, AUTOMATED 136 10^3/uL (150-450); RED BLOOD COUNT 4.31 10^6/uL (4.30-6.10); WHITE BLOOD COUNT 7.4 10^3/uL (4.0-10.0)
[2024-03-30 13:28] LABS: BLOOD UREA NITROGEN 28 MG/DL (9-23); CALCIUM LEVEL 8.4 MG/DL (8.3-10.6); CARBON DIOXIDE LEVEL 25 MMOL/L (20-31); CHLORIDE LEVEL 103 MMOL/L (98-107); CREATININE FOR GFR 1.17 MG/DL (0.70-1.30); GLOMERULAR FILTRATION RATE > 60.0 (>35); GLUCOSE, FASTING 115 MG/DL (74-106); POTASSIUM SERUM 4.8 MMOL/L (3.5-5.1); SODIUM LEVEL 135 MMOL/L (136-145)
== END ==
PROVIDERS: ATTEND Internal Medicine
DX: I48.91 Unspecified atrial fibrillation (principal)

== ENCOUNTER → 2024-04-01 | Outpatient (REF) | payer MEDICARE, MEDICAID | PROVIDERS: ATTEND Internal Medicine | DX: E20.9 Hypoparathyroidism, unspecified (principal) ==

== ENCOUNTER → 2024-06-08 | Outpatient (REF) | payer MEDICARE, MEDICAID ==
[~2024-06-08] MED LIST changes: +GABA-1172 PO; -GABA-282 PO; +NYST1POW3 TOP; -NYST1POW9 TOP
[2024-06-08 12:48] LABS: BLOOD UREA NITROGEN 31 MG/DL (9-23); CALCIUM LEVEL 8.7 MG/DL (8.3-10.6); CARBON DIOXIDE LEVEL 24 MMOL/L (20-31); CHLORIDE LEVEL 107 MMOL/L (98-107); CREATININE FOR GFR 1.13 MG/DL (0.70-1.30); GLOMERULAR FILTRATION RATE > 60.0 (>35); GLUCOSE, FASTING 143 MG/DL (74-106); POTASSIUM SERUM 4.5 MMOL/L (3.5-5.1); SODIUM LEVEL 140 MMOL/L (136-145)
== END ==
PROVIDERS: ATTEND Internal Medicine
DX: N18.9 Chronic kidney disease, unspecified (principal)

== ENCOUNTER → 2024-06-24 | Outpatient (REF) | payer MEDICARE, MEDICAID ==
[2024-06-24 10:20] LABS: BLOOD UREA NITROGEN 28 MG/DL (9-23); CALCIUM LEVEL 8.7 MG/DL (8.3-10.6); CARBON DIOXIDE LEVEL 24 MMOL/L (20-31); CHLORIDE LEVEL 108 MMOL/L (98-107); CREATININE FOR GFR 1.07 MG/DL (0.70-1.30); GLOMERULAR FILTRATION RATE > 60.0 (>35); GLUCOSE, FASTING 100 MG/DL (74-106); POTASSIUM SERUM 4.4 MMOL/L (3.5-5.1); SODIUM LEVEL 139 MMOL/L (136-145)
== END ==
PROVIDERS: ATTEND Internal Medicine
DX: N18.9 Chronic kidney disease, unspecified (principal); I50.9 Heart failure, unspecified

== ENCOUNTER → 2024-06-29 | Outpatient (REF) | payer MEDICARE, MEDICAID ==
[2024-06-29 09:34] LABS: HEMATOCRIT 44.3 % (42.0-52.0); HEMOGLOBIN 14.5 g/dl (13.5-17.5); MEAN CORPUSCULAR HEMOGLOBIN 31.8 pg (27.0-33.0); MEAN CORPUSCULAR HGB CONC 32.7 g/dl (32.0-36.5); MEAN CORPUSCULAR VOLUME 97.1 fl (80.0-96.0); PLATELET COUNT, AUTOMATED 135 10^3/uL (150-450); RED BLOOD COUNT 4.56 10^6/uL (4.30-6.10); WHITE BLOOD COUNT 6.9 10^3/uL (4.0-10.0)
[2024-06-29 10:07] LABS: HEMOGLOBIN A1c 5.8 % (4.0-6.0)
[2024-06-29 10:14] LABS: BLOOD UREA NITROGEN 23 MG/DL (9-23); CARBON DIOXIDE LEVEL 23 MMOL/L (20-31); CHLORIDE LEVEL 108 MMOL/L (98-107); CREATININE FOR GFR 1.06 MG/DL (0.70-1.30); GLOMERULAR FILTRATION RATE > 60.0 (>35); GLUCOSE, FASTING 89 MG/DL (74-106); POTASSIUM SERUM 4.4 MMOL/L (3.5-5.1); SODIUM LEVEL 141 MMOL/L (136-145)
== END ==
PROVIDERS: ATTEND Internal Medicine
DX: E21.3 Hyperparathyroidism, unspecified (principal); Z79.899 Other long term (current) drug therapy

== ENCOUNTER → 2024-11-20 | Outpatient (REF) | payer MEDICARE, MEDICAID ==
[~2024-11-20] MED LIST changes: -FLOM0.4C39 PO; -FLUO10TA30 PO; +FLUO1TAB2 PO; -GLUC1KIT IM; +GLUC1VIA14 IM; +MAGN400O74 PO; -MILKSUS5 PO; +TAMS-18 PO
[2024-11-20 08:26] LABS: CALCIUM LEVEL 8.8 MG/DL (8.3-10.6); CREATININE FOR GFR 1.06 MG/DL (0.70-1.30); GLOMERULAR FILTRATION RATE 69.6 (>35); POTASSIUM SERUM 4.8 MMOL/L (3.5-5.1)
== END ==
PROVIDERS: ATTEND Internal Medicine
DX: I50.9 Heart failure, unspecified (principal)

== ENCOUNTER → 2025-03-29 | Outpatient (REF) | payer MEDICARE, MEDICAID ==
[2025-03-29 12:49] LABS: PLATELET COUNT, AUTOMATED 138 10^3/uL (150-450)
[2025-03-29 13:18] LABS: CALCIUM LEVEL 8.3 MG/DL (8.3-10.6); CARBON DIOXIDE LEVEL 25.0 MMOL/L (20-31); CHLORIDE LEVEL 103.0 MMOL/L (98-107); CREATININE FOR GFR 1.02 MG/DL (0.70-1.30); GLOMERULAR FILTRATION RATE 72.9 (>35); POTASSIUM SERUM 4.3 MMOL/L (3.5-5.1); SODIUM LEVEL 137.0 MMOL/L (136-145)
== END ==
PROVIDERS: ATTEND Internal Medicine
DX: I50.9 Heart failure, unspecified (principal)

== ENCOUNTER → 2025-06-21 | Outpatient (REF) | payer MEDICARE, MEDICAID ==
[2025-06-21 13:30] LABS: CHOLESTEROL LEVEL 134.0 MG/DL (<200); CHOLESTEROL RISK RATIO 4.18 (<5); LDL CHOLESTEROL 64.8 MG/DL (<100); NON-HDL-C 102.0 MG/DL; TRIGLYCERIDES LEVEL 186.0 MG/DL (<150)
[2025-06-21 13:48] LABS: ESTIMATED AVERAGE GLUCOSE 137.0 MG/DL (60-110)
== END ==
PROVIDERS: ATTEND Internal Medicine
DX: E11.9 Type 2 diabetes mellitus without complications (principal)